=== PATIENT | male | born 1965 | race African-American/Black ===

== ENCOUNTER 2017-04-26 13:54 | Emergency (ER) | payer MEDICARE ==
[~2017-04-26] VITALS: Ht 182.9 cm; Wt 138.3 kg
[~2017-04-26 13:54] MED LIST: CLON0.2T PO; CYCL10TA2 PO; HYDR-971 PO; HYDR12.53 PO; LISI40TA PO; METO25TA2 PO; SIMV20TA3 PO
[2017-04-26] MEDS ORDERED: cloNIDine HCL 0.1 MG TABLET PO ONE (15:45)
--- NOTE | 2017-04-26 15:55 | PHYS DOC ---
Past Medical History Past Medical History: High Cholesterol, Hypertension, Other Additional Past Medical Histor: Gout. Past Surgical History: No Surgical History Additional Information: 1 PPD. Alcohol Use: None Additional Information: "Not no more, since my feet started swelling. Quit weekend before Father's Day. " Drug Use: Marijuana Social History Narrative: Medical Marijuana-last smoked yesterday. Adult General Chief Complaint Chief Complaint: HYPERTENSION HPI HPI Patient is a 52 year old brought to the ED by family members with a complaint of blood pressure elevated. Patient recently had the complaint of tongue swelling and his primary care doctor stopped his losartan. They bring paperwork from that visit. The patient is supposed to be taking metoprolol 100 mg twice a day and was recently started on Lasix 20 mg daily. He states he is taking those as prescribed. At this time, those are the only blood pressure medicines he is on. He is concerned that his blood pressure has been running high. They took it at home with a home cuff multiple times and it is high. Last night because his blood pressure was high, he took another losartan. Evidently he was not counseled to never take that again. When he took it, his tongue did swell up, but is better now. At this time he feels like his head feels heavy or congested but denies headache. Denies chest pain or shortness of air. Review of Systems Review of Systems Constitutional: Denies fever or chills [] HENT: Denies nasal congestion or sore throat [] Respiratory: Denies shortness of breath [] Cardiovascular: Denies chest pain Musculoskeletal: Denies back pain or joint pain [] Neurologic: Denies headache, focal weakness or sensory changes [] Current Medications Current Medications Current Medications Medications (Trade) Dose Ordered Sig/Theodora Start Time Stop Time Status Last Admin Dose Admin Clonidine HCl (Catapres) 0.1 mg 1X ONCE 04/26/17 15:45 04/26/17 15:46 DC 04/26/17 16:14 0.1 MG Allergies Allergies Allergies Coded Allergies Type Severity Reaction Last Updated Verified No Known Drug Allergies 08/02/14 No Physical Exam Physical Exam Constitutional: Well developed, well nourished, no acute distress, non-toxic appearance. Alert, mentating normally. Blood pressure 176/112, heart rate 50 HENT: Normocephalic, atraumatic, bilateral external ears normal, nose normal. [ ] Eyes: conjunctiva normal, no discharge. [] Neck: Normal range of motion, no stridor. [] Cardiovascular:Heart rate regular rhythm, no murmur [] Lungs & Thorax: Bilateral breath sounds clear to auscultation [] Skin: Warm, dry, no erythema, no rash. [] Extremities: No tenderness, no cyanosis, no clubbing, ROM intact, no edema. [] Neurologic: Alert and oriented X 3, normal motor function, normal sensory function, no focal deficits noted. [] Current Patient Data Vital Signs Vital Signs Date Time Temp Pulse Resp B/P (MAP) Pulse Ox O2 Delivery O2 Flow Rate FiO2 04/26/17 16:30 55 16 202/112 (142) 96 Room Air 04/26/17 14:18 98.5 98.5 EKG EKG 12-lead EKG read by me. Sinus rhythm. Heart rate 61. There are no acute ST or T wave changes indicative of ischemia or infarction. No STEMI. 1413 [] Radiology/Procedures Radiology/Procedures [] Course & Med Decision Making Course & Med Decision Making Pertinent Labs and Imaging studies reviewed. (See chart for details) 52-year-old male with hypertension recently had his losartan discontinued because of tongue swelling, presents with elevated blood pressure and nonspecific complaints that are likely not related. The patient and I discussed the options. He is already taking metoprolol 100 twice a day and was recently started on a low dose of furosemide. I don't believe either of those should be increased at this time. We talked about various options. I encouraged him to follow up with his primary care provider for definitive care but tonight we will start him on a low-dose of clonidine to see if that will help his blood pressure while he is waiting for an appointment. [] Dragon Disclaimer Dragon Disclaimer This electronic medical record was generated, in whole or in part, using a voice recognition dictation system. Departure Departure Impression: Primary Impression: Elevated blood pressure reading with diagnosis of hypertension Disposition: 01 HOME, SELF-CARE Condition: STABLE Referrals: UNKNOWN PCP NAME (PCP) Patient Instructions: Hypertension, [id number] Additional Instructions: As we discussed, we will add a blood pressure medicine to the ones that you are already taking. We will add clonidine 0.1 mg twice a day. Today, you had one dose of clonidine in the emergency department. Take your second dose of clonidine at bedtime tonight, and then start taking one every 12 hours. For example, if you go to bed at 10:00 tonight, take your next dose at 10 :00 in the morning tomorrow. Keep your appointment May 07 with your primary care doctor at and let him know what we did with adding clonidine. Drink plenty of fluids, stay well-hydrated. Scripts Clonidine Hcl (CLONIDINE HCL) 0.1 Mg Tablet 0.1 MG PO BID for HYPERTENSION for 30 Days, #60 TAB Prov: ARMANDO LAW MD 04/26/17 ARMANDO LAW MD Apr 26, 2017 15:55
[2017-04-26] MEDS ORDERED: CLON0.1T PO (15:56)
--- NOTE | 2017-04-26 15:58 | EKG ---
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
[2017-04-26 16:30] VITALS: BP 202/112
== END 2017-04-26 16:43 | disposition home or self-care (01) ==
LOC: ER 13:54
DX: I10 Essential (primary) hypertension (principal); E78.00 Pure hypercholesterolemia, unspecified; M10.9 Gout, unspecified; F17.200 Nicotine dependence, unspecified, uncomplicated; F12.10 Cannabis abuse, uncomplicated
CPT/HCPCS: 93005; 99284-25

== ENCOUNTER 2018-02-17 19:05 | Inpatient (IN) | payer MEDICARE ==
[2018-02-17 19:29] LABS: ADD MAN DIFF? NO
[2018-02-17 19:31] LABS: BASO # 0.1 x10^3/uL (0.0-0.2); BASO % 1 % (0-3); EOS # 0.1 x10^3/uL (0.0-0.7); EOS % 2 % (0-3); HEMATOCRIT 43.9 % (39.0-53.0); HEMOGLOBIN 14.9 g/dL (13.0-17.5); LYMPH % 41 % (24-48); MEAN CORPUSCULAR HEMOGLOBIN 30 pg (25-35); MEAN CORPUSCULAR HGB CONC 34 g/dL (31-37); MEAN CORPUSCULAR VOLUME 88 fL (79-100); MONO # 0.7 x10^3/uL (0.0-1.1); MONO % 10 % (0-9); NEUT # 3.4 x10^3uL (1.8-7.7); NEUT % 47 % (31-73); PLATELET COUNT 223 x10^3/uL (140-400); RED BLOOD COUNT 4.97 x10^6/uL (4.30-5.70); RED CELL DISTRIBUTION WIDTH 13.8 % (11.5-14.5); WHITE BLOOD COUNT 7.3 x10^3/uL (4.0-11.0)
[2018-02-17 19:42] LABS: ANION GAP 13 (6-14); BLOOD UREA NITROGEN 21 mg/dL (8-26); BUN/CREATININE RATIO 14 (6-20); CALCIUM 8.4 mg/dL (8.5-10.1); CARBON DIOXIDE 25 mmol/L (21-32); CHLORIDE 104 mmol/L (98-107); CREATININE 1.5 mg/dL (0.7-1.3); GFR 58.8; GLUCOSE 98 mg/dL (70-99); POTASSIUM 3.7 mmol/L (3.5-5.1); SODIUM 142 mmol/L (136-145)
[2018-02-17 19:48] LABS: ALBUMIN 3.8 g/dL (3.4-5.0); ALBUMIN/GLOBULIN RATIO 1.1 (1.0-1.7); ALK PHOS 74 U/L (46-116); ALT (SGPT) 32 U/L (16-63); AST (SGOT) 26 U/L (15-37); TOTAL BILIRUBIN 0.4 mg/dL (0.2-1.0); TOTAL PROTEIN 7.3 g/dL (6.4-8.2)
[2018-02-17 19:49] LABS: TROPONINI < 0.017 ng/mL (0.000-0.055)
[2018-02-17 19:54] LABS: CKMB INDEX 0.5 % (0-4); CKMB MASS 2.3 ng/mL (0.0-3.6); CREATINE KINASE 445 U/L (39-308)
[2018-02-17] MEDS ORDERED: CONTRAST GIVEN. MC (20:00)
[2018-02-17] MEDS: IOHEXOL 300 MG/ML 100ML VIAL. IV (20:05)
[2018-02-17] MEDS: ASPIRIN CHEWABLE 81 MG TABLET. PO (20:12)
[2018-02-17] MEDS ORDERED: ACETAMINOPHEN 325 MG TABLET. PO (21:30)
[2018-02-17] MEDS ORDERED: fentaNYL PF VIAL 100 MCG/2 ML VIAL IV (21:30)
[2018-02-17] MEDS: amLODIPine BESYLATE 10 MG TABLET PO (22:30)
[2018-02-17] MEDS ORDERED: HYDROcodone/APAP 5/325MG 1 TAB TABLET PO (22:30)
[2018-02-17] MEDS ORDERED: LABETALOL 20 MG/4 ML DISP.SYRIN. IVP (22:30)
[2018-02-17] MEDS ORDERED: NITROGLYCERIN SUBLINGUAL 0.4 MG BOTTLE OF 25. SL (22:30)
[2018-02-18] MEDS: ZOLPIDEM 5 MG TABLET. PO (00:32)
[2018-02-18] MEDS: ONDANSETRON PF 4 MG/2 ML VIAL. IV (02:45)
[2018-02-18 03:24] LABS: ADD MAN DIFF? NO
[2018-02-18 03:34] LABS: BASO % 1 % (0-3); EOS # 0.1 x10^3/uL (0.0-0.7); EOS % 2 % (0-3); HEMATOCRIT 42.7 % (39.0-53.0); HEMOGLOBIN 14.5 g/dL (13.0-17.5); LYMPH % 44 % (24-48); MEAN CORPUSCULAR HEMOGLOBIN 30 pg (25-35); MEAN CORPUSCULAR HGB CONC 34 g/dL (31-37); MEAN CORPUSCULAR VOLUME 88 fL (79-100); MONO # 0.5 x10^3/uL (0.0-1.1); MONO % 7 % (0-9); NEUT # 3.2 x10^3uL (1.8-7.7); NEUT % 47 % (31-73); PLATELET COUNT 204 x10^3/uL (140-400); RED BLOOD COUNT 4.84 x10^6/uL (4.30-5.70); RED CELL DISTRIBUTION WIDTH 13.8 % (11.5-14.5); WHITE BLOOD COUNT 6.9 x10^3/uL (4.0-11.0)
[2018-02-18 03:54] LABS: ALBUMIN 3.6 g/dL (3.4-5.0); ALBUMIN/GLOBULIN RATIO 1.2 (1.0-1.7); ALK PHOS 71 U/L (46-116); ALT (SGPT) 31 U/L (16-63); ANION GAP 10 (6-14); AST (SGOT) 27 U/L (15-37); BLOOD UREA NITROGEN 18 mg/dL (8-26); BUN/CREATININE RATIO 13 (6-20); CALCIUM 8.8 mg/dL (8.5-10.1); CARBON DIOXIDE 28 mmol/L (21-32); CHLORIDE 104 mmol/L (98-107); CREATININE 1.4 mg/dL (0.7-1.3); GFR 63.7; GLUCOSE 164 mg/dL (70-99); POTASSIUM 3.5 mmol/L (3.5-5.1); SODIUM 142 mmol/L (136-145); TOTAL BILIRUBIN 0.4 mg/dL (0.2-1.0); TOTAL PROTEIN 6.5 g/dL (6.4-8.2)
[2018-02-18 03:55] LABS: TROPONINI < 0.017 ng/mL (0.000-0.055)
[2018-02-18] MEDS: CETIRIZINE HCL 10 MG TABLET. PO (09:00)
[2018-02-18] MEDS ORDERED: PNEUMOCOCCAL VAX SCREEN BY RX. MC (09:00)
[2018-02-18] MEDS: CARVEDILOL 3.125 MG TABLET. PO (09:01)
[2018-02-18] MEDS: ASPIRIN ENTERIC COATED 325 MG TABLET.DR. PO (09:03)
[2018-02-18] MEDS: FUROSEMIDE 20 MG TABLET PO (09:03)
[2018-02-18] MEDS: LISINOPRIL 20 MG TABLET PO (09:03)
[2018-02-18] MEDS: amLODIPine BESYLATE 10 MG TABLET PO (09:04)
[2018-02-18] MEDS: PNEUMOC CONJ VACC 23-VALENT 0.5 ML VIAL. VAX IM (09:10)
[2018-02-18 09:18] LABS: CHOLESTEROL 165 mg/dL (0-200); HDLC 32 mg/dL (40-60); LDLC 107 mg/dL (0-100); NON-HDL CHOLESTEROL 133 mg/dL (0-129); TRIGLYCERIDES 130 mg/dL (0-150); VLDLC 26 mg/dL (0-40)
[2018-02-18 09:19] LABS: CHOLESTEROL/HDL RATIO 5.2
[2018-02-18] MEDS: PANTOPRAZOLE 40 MG TABLET.DR. PO (09:22)
[2018-02-18] MEDS ORDERED: SIMVASTATIN 20 MG TABLET PO ×2 (21:00)
[2018-02-19] MEDS ORDERED: LORATADINE PO (09:00)
== END 2018-02-18 15:40 | disposition home or self-care (01) | DRG 291 ==
LOC: ER 19:05 → 5 SOUTH 21:16
DX: I13.0 Hypertensive heart and chronic kidney disease with heart failure and stage 1 through stage 4 chronic kidney disease, or unspecified chronic kidney disease (principal); N17.0 Acute kidney failure with tubular necrosis; Z68.41 Body mass index [BMI] 40.0-44.9, adult; E66.01 Morbid (severe) obesity due to excess calories; N18.3 Chronic kidney disease, stage 3 (moderate); K21.9 Gastro-esophageal reflux disease without esophagitis; I50.9 Heart failure, unspecified; R07.89 Other chest pain; I25.119 Atherosclerotic heart disease of native coronary artery with unspecified angina pectoris; I77.810 Thoracic aortic ectasia; E78.00 Pure hypercholesterolemia, unspecified; E78.5 Hyperlipidemia, unspecified; F17.210 Nicotine dependence, cigarettes, uncomplicated; G47.33 Obstructive sleep apnea (adult) (pediatric); F12.90 Cannabis use, unspecified, uncomplicated; M10.9 Gout, unspecified; M19.90 Unspecified osteoarthritis, unspecified site; M54.5 Low back pain; Z82.49 Family history of ischemic heart disease and other diseases of the circulatory system; Z86.73 Personal history of transient ischemic attack (TIA), and cerebral infarction without residual deficits; Z71.6 Tobacco abuse counseling
CPT/HCPCS: 36415; 71045; 71275; 74174; 80053; 80061; 82553; 83735; 84484; 85025; 90732; 93005; 93306; 99285; 99285-25; 99406; J2405; Q9967

== ENCOUNTER 2018-05-21 14:33 | Emergency (ER) | payer MEDICARE ==
[~2018-05-21] VITALS: Ht 182.9 cm; Wt 131.5 kg
[~2018-05-21 14:33] MED LIST changes: +AMLO10TA6 PO; +ASPI325T11 PO; +CARV3.122 PO; +CETI10TA16 PO; +CLON0.1T PO; +FURO20TA3 PO; +LISI-130 PO; +LISI-334 PO; -LISI40TA PO; +LORA10TA68 PO; +NITR0.4T22 SL
[2018-05-21] MEDS ORDERED: IPRATRPIUM/ALBUTEROL 0.5/2.5MG 3 ML NEBU. NEB ONE (15:15)
[2018-05-21] MEDS ORDERED: HYDROcodone/APAP 5/325MG 1 TAB TABLET PO ONE (15:15)
--- NOTE | 2018-05-21 15:22 | EKG ---
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
--- NOTE | 2018-05-21 15:32 | PHYS DOC ---
Past Medical History Past Medical History: CAD, CHF, CVA, High Cholesterol, Hypertension, Other Additional Past Medical Histor: Gout, high cholesterol Past Surgical History: No Surgical History Additional Past Surgical Histo: heart cath, no stent Additional Information: SMOKES 1 CIGARETTE A DAY, PER PT REPORT Alcohol Use: None Drug Use: Marijuana Adult General Chief Complaint Chief Complaint: SHORTNESS OF BREATH HPI HPI Patient is a 53 year old male who presents with cough and respiratory symptoms. The patient does not have a prior history of asthma or emphysema. He presents to the ER today complaining of a persistent cough over the last 7-10 days. He has had some chills but no documented fever. He states that he feels like he needs to cough up some phlegm but he has been unable to expectorate. His symptoms are worse at night. He has developed some left-sided rib cage pain that is worse when he coughs. He denies any chest pain or palpitations or shortness of breath. He also has upper respiratory symptoms including postnasal drip, nasal congestion, and sore throat Review of Systems Review of Systems Constitutional: Denies fever or chills Eyes: Denies change in visual acuity HENT: as documented above Respiratory: Denies cough Cardiovascular: No additional information GI: Denies abdominal pain : Denies dysuria Musculoskeletal: Denies back pain Integument: Denies rash Neurologic: Denies headache All other systems were reviewed and found to be within normal limits, except as documented in this note. Current Medications Current Medications Current Medications Medications (Trade) Dose Ordered Sig/Theodora Start Time Stop Time Status Last Admin Dose Admin Acetaminophen/ Hydrocodone Bitart (Lortab 5/325) 2 tab 1X ONCE 05/21/18 15:15 05/21/18 15:16 DC 05/21/18 15:49 2 TAB Albuterol/ Ipratropium (Duoneb) 3 ml 1X ONCE 05/21/18 15:15 05/21/18 15:16 DC 05/21/18 15:21 3 ML Azithromycin (Zithromax) 500 mg 1X ONCE 05/21/18 16:15 05/21/18 16:16 Prednisone (Prednisone) 50 mg 1X ONCE 05/21/18 16:15 05/21/18 16:16 Allergies Allergies Allergies Coded Allergies Type Severity Reaction Last Updated Verified No Known Drug Allergies 08/02/14 No Physical Exam Physical Exam Constitutional: Well developed, well nourished, no acute distress, non-toxic HENT: Normocephalic, atraumatic, bilateral external ears normal, posterior oral pharynx is clear. Post nasal gtt noted. Some nasal congestion. Eyes: PERRLA, EOMI, conjunctiva normal Neck: Normal range of motion, no tenderness, supple Cardiovascular:Heart rate regular rhythm Lungs & Thorax: Few scattered wheezes heard over the left lung siegel but overall good air movement, no increased work of breathing, no prolonged exp phase Skin: Warm, dry, no erythema, no rash. Back: No tenderness Extremities: No edema Neurologic: Alert and oriented X 3 Psychologic: Affect normal Current Patient Data Vital Signs Vital Signs Date Time Temp Pulse Resp B/P (MAP) Pulse Ox O2 Delivery O2 Flow Rate FiO2 05/21/18 15:49 20 96 Room Air 05/21/18 14:40 98.4 56 153/89 (110) 98.4 EKG EKG [] Radiology/Procedures Radiology/Procedures No acute findings on CXR Course & Med Decision Making Course & Med Decision Making Pertinent Labs and Imaging studies reviewed. (See chart for details) 03:15: Patient is seen and examined. CXR, kenton mast for pain. 16:10: Patient currently feeling improved. His x-ray did not reveal any acute findings. Given his prolonged course of sinus symptoms as well as some positive findings on his physical exam, patient will be treated with azithromycin. He is given the first dose in the ER. He is also placed on a short burst of prednisone. The patient will not be able to afford albuterol inhaler at home so this medication was not prescribed. He is discharged home. Patient is agreeable to plan of care. Dragon Disclaimer Dragon Disclaimer This electronic medical record was generated, in whole or in part, using a voice recognition dictation system. Departure Departure Referrals: UNKNOWN PCP NAME (PCP) Scripts Azithromycin (AZITHROMYCIN TABLET) 250 Mg Tablet 250 MG PO DAILY for ANTI-BIOTIC for 4 Days, #4 TAB 0 Refills Prov: AKUA ZAIDI DO 05/21/18 Prednisone (PREDNISONE) 50 Mg Tablet 1 TAB PO DAILY, #4 TAB Prov: AKUA ZAIDI DO 05/21/18 Hydrocodone/Apap 5-325 (NORCO 5-325 TABLET) 1 Each Tablet 1-2 EACH PO PRN Q6HRS PRN for cough or pain, #15 as needed for pain Prov: AKUA ZAIDI DO 05/21/18 AKUA ZAIDI DO May 21, 2018 15:32
--- NOTE | 2018-05-21 15:55 | RAD ---
CHEST PA LATERAL dated 05/21/2018 3:34 PM. Comparison: 02/17/2018 Clinical Indication: Chest pain. Findings: PA and lateral views were obtained. Heart and mediastinal contours are stable. Lungs are clear without focal consolidation. Vascular interstitium within normal limits. No pleural effusion or pneumothorax. Impression: No acute radiographic abnormality. Electronically signed by: Gary Lebron MD (05/21/2018 3:52 PM) [facility]
[2018-05-21] MEDS ORDERED: HYDR-971 PO (16:09)
[2018-05-21] MEDS ORDERED: AZIT250T6 PO (16:09)
[2018-05-21] MEDS ORDERED: PRED50TA PO (16:09)
[2018-05-21 16:14] VITALS: BP 151/93
[2018-05-21] MEDS ORDERED: predniSONE 20 MG TABLET PO ONE (16:15)
[2018-05-21] MEDS ORDERED: AZITHROMYCIN 250 MG TABLET. PO ONE (16:15)
== END 2018-05-21 16:23 | disposition home or self-care (01) ==
LOC: ER 14:33
DX: R05 Cough (principal); J02.9 Acute pharyngitis, unspecified; R09.81 Nasal congestion; I11.0 Hypertensive heart disease with heart failure; I50.9 Heart failure, unspecified; I25.10 Atherosclerotic heart disease of native coronary artery without angina pectoris; E78.00 Pure hypercholesterolemia, unspecified; F17.210 Nicotine dependence, cigarettes, uncomplicated
CPT/HCPCS: 71046; 93005; 94640; 99284; J7512; J7620; Q0144

== ENCOUNTER 2018-06-29 13:37 | Emergency (ER) | payer MEDICARE ==
[~2018-06-29] VITALS: Ht 182.9 cm; Wt 131.5 kg
[~2018-06-29 13:37] MED LIST changes: +AZIT250T6 PO; +PRED50TA PO
[2018-06-29] MEDS ORDERED: IV NORMAL SALINE 1000ML BAG 1,000 ML IV SCH (14:37)
[2018-06-29] MEDS ORDERED: KETOROLAC 30 MG/ML VIAL. IV ONE (14:45)
[2018-06-29 14:46] LABS: HEMATOCRIT 43.9 % (39.0-53.0); HEMOGLOBIN 15.2 g/dL (13.0-17.5); MEAN CORPUSCULAR HEMOGLOBIN 30 pg (25-35); MEAN CORPUSCULAR HGB CONC 35 g/dL (31-37); MEAN CORPUSCULAR VOLUME 87 fL (79-100); PLATELET COUNT 245 x10^3/uL (140-400); RED BLOOD COUNT 5.02 x10^6/uL (4.30-5.70); RED CELL DISTRIBUTION WIDTH 13.6 % (11.5-14.5); WHITE BLOOD COUNT 6.1 x10^3/uL (4.0-11.0)
[2018-06-29 14:47] LABS: BASO # 0.1 x10^3/uL (0.0-0.2); BASO % 1 % (0-3); EOS # 0.1 x10^3/uL (0.0-0.7); EOS % 1 % (0-3); LYMPH # 2.1 x10^3/uL (1.0-4.8); LYMPH % 34 % (24-48); MONO # 0.6 x10^3/uL (0.0-1.1); MONO % 10 % (0-9); NEUT # 3.3 x10^3uL (1.8-7.7); NEUT % 54 % (31-73)
[2018-06-29 14:48] LABS: BILIRUBIN,URINE NEGATIVE (NEG); CLARITY,URINE CLEAR; COLOR,URINE YELLOW; NITRITE,URINE NEGATIVE (NEG); PROTEIN,URINE NEGATIVE (NEG-TRACE); UROBILINOGEN,URINE 0.2 mg/dL (0.2 mg/dL)
[2018-06-29 14:56] LABS: CALCIUM 9.2 mg/dL (8.5-10.1); CREATININE 1.3 mg/dL (0.7-1.3); GFR 69.3; POTASSIUM 4.2 mmol/L (3.5-5.1)
[2018-06-29 15:02] LABS: ALBUMIN/GLOBULIN RATIO 1.3 (1.0-1.7); TOTAL BILIRUBIN 0.6 mg/dL (0.2-1.0); TOTAL PROTEIN 7.1 g/dL (6.4-8.2)
[2018-06-29 15:04] LABS: BACTERIA,URINE 0 /HPF (0-FEW); HYALINE CASTS, URINE FEW /HPF; RBC,URINE 0 /HPF (0-2); WBC,URINE 0 /HPF (0-4)
[2018-06-29] MEDS ORDERED: IOHEXOL 300 MG/ML 100ML VIAL. IV ONE (15:15)
--- NOTE | 2018-06-29 15:20 | PHYS DOC ---
Past Medical History Past Medical History: CAD, CHF, CVA, High Cholesterol, Hypertension, Other Additional Past Medical Histor: Gout, high cholesterol Past Surgical History: No Surgical History Additional Past Surgical Histo: heart cath, no stent Alcohol Use: None Drug Use: Marijuana Adult General Chief Complaint Chief Complaint: FLANK PAIN HPI HPI Patient is a 53-year-old male who presents to the emergency department for evaluation. He states that he has been having some left-sided abdominal and flank pain today, which began this morning upon awakening, and seemed to radiate towards his lower abdomen, more to the right than the left. He has not had any hematuria or dysuria, nausea, vomiting, or diarrhea. He has not had any fevers or chills. He denies any chest pain shortness of breath. He states he has been dealing with some chronic swelling in his throat, for several months. He states he has seen a doctor for this but has not seen an ENT doctor. He has problems with allergies. He has a chronically drooping right eyelid, which has been present for years, but has not had any new visual symptoms. He denies any headache, new numbness or weakness. There are no alleviating, or exacerbating factors to his symptoms otherwise. Review of Systems Review of Systems Constitutional: Denies fever or chills [] Eyes: Denies change in visual acuity, redness, or eye pain [] HENT: Denies nasal congestion or sore throat, except as noted in the history of present illness. [] Respiratory: Denies cough or shortness of breath [] Cardiovascular: The patient denies any shortness of breath, chest pain, palpitations, or orthopnea [] GI: No additional information not addressed in HPI [] : Denies dysuria or hematuria [] Musculoskeletal: Denies back pain or joint pain [] Integument: Denies rash or skin lesions [] Neurologic: Denies headache, focal weakness or sensory changes [] Endocrine: Denies polyuria or polydipsia [] All other systems were reviewed and found to be within normal limits, except as documented in this note. Current Medications Current Medications Current Medications Medications (Trade) Dose Ordered Sig/Theodora Start Time Stop Time Status Last Admin Dose Admin Iohexol (Omnipaque 300 Mg/ml) 75 ml 1X ONCE 06/29/18 15:15 06/29/18 15:16 DC 06/29/18 15:16 75 ML Ketorolac Tromethamine (Toradol 30mg Vial) 30 mg 1X ONCE 06/29/18 14:45 06/29/18 14:46 DC 06/29/18 15:32 30 MG Sodium Chloride 1,000 ml @ 1,000 mls/hr Q1H 06/29/18 14:37 06/29/18 15:36 DC 06/29/18 15:31 1,000 MLS/HR Allergies Allergies Allergies Coded Allergies Type Severity Reaction Last Updated Verified No Known Drug Allergies 08/02/14 No Physical Exam Physical Exam PHYSICAL EXAM: CONSTITUTIONAL: Well developed, well nourished HEAD: normocephalic, atraumatic EENT: There is very mild right-sided ptosis, most prominent laterally. This appears to be more likely due to local eyelid problem than neurological problem. There is no miosis, PERRL, EOMI. Conjunctivae normal color, there is a small amount of clear conjunctival discharge bilaterally, there is no nasal congestion, sclerae non-icteric; moist mucous membranes. There is mild edema noted to the uvula, without any pharyngeal erythema. Airway is widely patent. There is no peritonsillar edema or uvular shift. NECK: Supple, non-tender; no meningismus. LUNGS: Lungs CTA, breathing even and unlabored. Normal air movement. HEART: Regular rate and rhythm, no murmur CHEST: No deformity; non-tender ABDOMEN: The abdomen is soft, there is mild diffuse tenderness to palpation to the left mid and lower abdomen, without rebound or guarding. The remainder the abdomen is soft and non-tender, no masses or bruits. Normal bowel sounds are present. EXTREM: Normal ROM; no deformity, no calf tenderness. Normal pulses palpable in all extremities. There is no pedal edema. SKIN: No rash; no diaphoresis NEURO: Alert; normal speech and cognition; CN's grossly intact; strength grossly intact without focal deficit. BACK: No CVA TTP. Current Patient Data Vital Signs Vital Signs Date Time Temp Pulse Resp B/P (MAP) Pulse Ox O2 Delivery O2 Flow Rate FiO2 06/29/18 14:25 98.1 52 18 166/97 (120) 97 Room Air 98.1 Lab Values Laboratory Tests Test 06/29/18 14:25 06/29/18 14:36 Urine Collection Type Unknown Urine Color Yellow Urine Clarity Clear Urine pH 5.0 Urine Specific [place] 1.015 Urine Protein Negative mg/dL (NEG-TRACE) Urine Glucose (UA) Negative mg/dL (NEG) Urine Ketones (Stick) Negative mg/dL (NEG) Urine Blood Negative (NEG) Urine Nitrite Negative (NEG) Urine Bilirubin Negative (NEG) Urine Urobilinogen Dipstick 0.2 mg/dL (0.2 mg/dL) Urine Leukocyte Esterase Negative (NEG) Urine RBC 0 /HPF (0-2) Urine WBC 0 /HPF (0-4) Urine Bacteria 0 /HPF (0-FEW) Urine Hyaline Casts Few /HPF Urine Mucus Mod /LPF White Blood Count 6.1 x10^3/uL (4.0-11.0) Red Blood Count 5.02 x10^6/uL (4.30-5.70) Hemoglobin 15.2 g/dL (13.0-17.5) Hematocrit 43.9 % (39.0-53.0) Mean Corpuscular Volume 87 fL (79-100) Mean Corpuscular Hemoglobin 30 pg (25-35) Mean Corpuscular Hemoglobin Concent 35 g/dL (31-37) Red Cell Distribution Width 13.6 % (11.5-14.5) Platelet Count 245 x10^3/uL (140-400) Neutrophils (%) (Auto) 54 % (31-73) Lymphocytes (%) (Auto) 34 % (24-48) Monocytes (%) (Auto) 10 % (0-9) H Eosinophils (%) (Auto) 1 % (0-3) Basophils (%) (Auto) 1 % (0-3) Neutrophils # (Auto) 3.3 x10^3uL (1.8-7.7) Lymphocytes # (Auto) 2.1 x10^3/uL (1.0-4.8) Monocytes # (Auto) 0.6 x10^3/uL (0.0-1.1) Eosinophils # (Auto) 0.1 x10^3/uL (0.0-0.7) Basophils # (Auto) 0.1 x10^3/uL (0.0-0.2) Sodium Level 146 mmol/L (136-145) H Potassium Level 4.2 mmol/L (3.5-5.1) Chloride Level 107 mmol/L (98-107) Carbon Dioxide Level 28 mmol/L (21-32) Anion Gap 11 (6-14) Blood Urea Nitrogen 12 mg/dL (8-26) Creatinine 1.3 mg/dL (0.7-1.3) Estimated GFR (Cockcroft-Gault) 69.3 BUN/Creatinine Ratio 9 (6-20) Glucose Level 92 mg/dL (70-99) Calcium Level 9.2 mg/dL (8.5-10.1) Total Bilirubin 0.6 mg/dL (0.2-1.0) Aspartate Amino Transferase (AST) 20 U/L (15-37) Alanine Aminotransferase (ALT) 27 U/L (16-63) Alkaline Phosphatase 82 U/L (46-116) Troponin I Quantitative < 0.017 ng/mL (0.000-0.055) Total Protein 7.1 g/dL (6.4-8.2) Albumin 4.0 g/dL (3.4-5.0) Albumin/Globulin Ratio 1.3 (1.0-1.7) Lipase 106 U/L (73-393) Laboratory Tests 06/29/18 14:36 Laboratory Tests 06/29/18 14:36 EKG EKG [Normal sinus rhythm a rate of 50 beats for minute, normal axis, normal intervals, nonspecific ST/T changes inferiorly/laterally. EKG is unchanged compared to patient's prior EKG from 02/17/18.] Radiology/Procedures Radiology/Procedures PROCEDURE: CT ABD PELV W/ IV CONTRST ONLY Examination: CT of the abdomen pelvis with IV contrast HISTORY: History of left lower quadrant or left upper quadrant abdominal pain COMPARISON: 02/17/2018 TECHNIQUE: Axial CT images of the abdomen pelvis were performed with IV contrast. Coronal and sagittal reformats are performed Exposure: One or more of the following individualized dose reduction techniques were utilized for this examination: 1. Automated exposure control 2. Adjustment of the mA and/or kV according to patient size 3. Use of iterative reconstruction technique FINDINGS: Mild bibasilar lung atelectasis. No evidence of free air identified in the abdomen. The visualized liver demonstrates mild decreased attenuation probably mild hepatic steatosis. The visualized spleen, adrenals grossly appears unremarkable. The stomach is mildly distended. The visualized pancreas grossly appears unremarkable. The small bowel is nondilated. The appendix is normal. Feces and gas noted in the colon. Urinary bladder is mildly distended. Multiple small cystic structures identified in the bilateral kidneys similar to prior exam probably cyst. No evidence of lytic bony destructive lesion. IMPRESSION: 1. No acute intra-abdominal findings. 2. Bilateral renal cysts. 3. Mild hepatic steatosis.[] Course & Med Decision Making Course & Med Decision Making Pertinent Labs and Imaging studies reviewed. (See chart for details) [4:10 PM: Patient remains stable. I discussed test results, the need for close follow-up, and return precautions.] I discussed the importance of establishing ENT follow- up for the patient's persistent symptoms of soreness in his throat, for 12-24 months, to undergo further evaluation. Dragon Disclaimer Dragon Disclaimer This electronic medical record was generated, in whole or in part, using a voice recognition dictation system. Departure Departure Impression: Primary Impression: Abdominal pain Disposition: HOME, SELF-CARE Condition: STABLE Referrals: SANGEETHA MEDLEY MD Patient Instructions: Abdominal Pain Additional Instructions: Follow-up with your primary care provider for further evaluation in the next 5- 7 days. Please call to schedule appointment. Return to medical care for any new , or worsening symptoms, development of increasing pain, fever, chills, vomiting , chest pain, shortness of breath, or any other new, or concerning symptoms. Scripts Dicyclomine Hcl (DICYCLOMINE HCL) 20 Mg Tablet 1 TAB PO QID, #20 TAB Prov: KATHLEEN MCMAHON MD 06/29/18 KATHLEEN MCMAHON MD Jun 29, 2018 15:20
--- NOTE | 2018-06-29 15:31 | RAD ---
Examination: CT of the abdomen pelvis with IV contrast HISTORY: History of left lower quadrant or left upper quadrant abdominal pain COMPARISON: 02/17/2018 TECHNIQUE: Axial CT images of the abdomen pelvis were performed with IV contrast. Coronal and sagittal reformats are performed Exposure: One or more of the following individualized dose reduction techniques were utilized for this examination: 1. Automated exposure control 2. Adjustment of the mA and/or kV according to patient size 3. Use of iterative reconstruction technique FINDINGS: Mild bibasilar lung atelectasis. No evidence of free air identified in the abdomen. The visualized liver demonstrates mild decreased attenuation probably mild hepatic steatosis. The visualized spleen, adrenals grossly appears unremarkable. The stomach is mildly distended. The visualized pancreas grossly appears unremarkable. The small bowel is nondilated. The appendix is normal. Feces and gas noted in the colon. Urinary bladder is mildly distended. Multiple small cystic structures identified in the bilateral kidneys similar to prior exam probably cyst. No evidence of lytic bony destructive lesion. IMPRESSION: 1. No acute intra-abdominal findings. 2. Bilateral renal cysts. 3. Mild hepatic steatosis. Electronically signed by: Nilay Powers MD (06/29/2018 3:28 PM) [place] [id number]
[2018-06-29 16:00] VITALS: BP 135/76
[2018-06-29] MEDS ORDERED: DICY20TA3 PO (16:13)
--- NOTE | 2018-06-30 10:42 | EKG ---
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
== END 2018-06-29 16:30 | disposition home or self-care (01) ==
LOC: ER 13:37
DX: R10.84 Generalized abdominal pain (principal); R10.30 Lower abdominal pain, unspecified; K76.0 Fatty (change of) liver, not elsewhere classified; N28.1 Cyst of kidney, acquired; E78.00 Pure hypercholesterolemia, unspecified; I11.0 Hypertensive heart disease with heart failure; I50.9 Heart failure, unspecified; I25.10 Atherosclerotic heart disease of native coronary artery without angina pectoris; Z86.73 Personal history of transient ischemic attack (TIA), and cerebral infarction without residual deficits
CPT/HCPCS: 36415; 74177; 80053; 81001; 83690; 84484; 85025; 93005; 96374; 99285; J1885; J7030; Q9967

== ENCOUNTER 2018-07-18 17:43 | Emergency (ER) | payer MEDICARE ==
[~2018-07-18] VITALS: Ht 182.9 cm; Wt 131.5 kg
[~2018-07-18 17:43] MED LIST changes: +DICY20TA3 PO
[2018-07-18] MEDS ORDERED: IV NORMAL SALINE 1000ML BAG 1,000 ML IV ONE (18:15)
[2018-07-18] MEDS ORDERED: FAMOTIDINE 20 MG/2 ML VIAL IVP ONE (18:45)
--- NOTE | 2018-07-18 18:46 | PHYS DOC ---
Past Medical History Past Medical History: CAD, CHF, CVA, High Cholesterol, Hypertension, Other Additional Past Medical Histor: Gout, high cholesterol Past Surgical History: No Surgical History Additional Past Surgical Histo: heart cath, no stent Alcohol Use: Occasionally Drug Use: Marijuana Adult General Chief Complaint Chief Complaint: ABDOMINAL PAIN HPI HPI Patient is a 53 year old male presenting to the ED with abdominal pain. Pt states that the pain is located in the RUQ and wraps around to the back. States that the pain has been ongoing for the past 5 months. Severity 8/10. Quality is crampy. Pain alleviated with milk, apparently. Pain is worse with fatty foods. Reportedly seen in the ED here a month ago for LLQ pain but states that this resolved with a prescription of dicyclomine. Pt reports that a CT was done at that time which did not show gallstones. Last BM yesterday. Also complains of throat hurting. Patient admits to having fever, upper back pain, chills, and sweating. Patient denies current chest pain, and shortness of breath. Review of Systems Review of Systems Constitutional: Reports subjective fever and chills Eyes: Denies change in visual acuity, redness, or eye pain [] HENT: Denies nasal congestion or sore throat [] Respiratory: Denies cough or shortness of breath [] Cardiovascular: Denies chest pain or palpitations GI: Admits to right upper quadrant pain, denies nausea vomiting. : Denies dysuria or hematuria [] Musculoskeletal: Admits to upper back pain. Denies joint pain. Integument: Denies rash or skin lesions [] Neurologic: Denies headache, focal weakness or sensory changes [] Complete systems were reviewed and found to be within normal limits, except as documented in this note. Current Medications Current Medications Current Medications Medications (Trade) Dose Ordered Sig/Theodora Start Time Stop Time Status Last Admin Dose Admin Dicyclomine HCl (Bentyl) 10 mg 1X ONCE 07/18/18 20:15 07/18/18 20:16 DC 07/18/18 20:16 10 MG Famotidine (Pepcid Vial) 20 mg 1X ONCE 07/18/18 18:45 07/18/18 18:46 DC 07/18/18 19:01 20 MG Ketorolac Tromethamine (Toradol 15mg Vial) 15 mg 1X ONCE 07/18/18 20:15 07/18/18 20:16 DC 07/18/18 20:10 15 MG Sodium Chloride 1,000 ml @ 1,000 mls/hr 1X ONCE 07/18/18 18:15 07/18/18 19:14 DC 07/18/18 19:01 1,000 MLS/HR Allergies Allergies Allergies Coded Allergies Type Severity Reaction Last Updated Verified No Known Drug Allergies 08/02/14 No Physical Exam Physical Exam Constitutional: Well developed, overweight, no acute distress, non-toxic appearance. [] HENT: Normocephalic, atraumatic, oropharynx moist, nose normal. [] Eyes: PERRL, EOMI, conjunctiva normal, no discharge. [] Neck: Normal range of motion, no tenderness, supple, no meningeal signs Cardiovascular:Heart rate regular rhythm, no murmur [] Lungs & Thorax: Bilateral breath sounds clear to auscultation [] Abdomen: Soft, right upper quadrant mildly tender to palpation Skin: Warm, dry, no erythema, no rash. [] Back: No tenderness, no CVA tenderness. [] Extremities: No tenderness, ROM intact, no edema. [] Neurologic: Alert and oriented X 3, normal motor function, normal sensory function, no focal deficits noted. [] Psychologic: Affect normal, judgement normal, mood normal. [] Current Patient Data Vital Signs Vital Signs Date Time Temp Pulse Resp B/P (MAP) Pulse Ox O2 Delivery O2 Flow Rate FiO2 07/18/18 21:42 76 18 136/84 (101) 96 07/18/18 20:05 96.0 07/18/18 18:01 97.1 Room Air 97.1 Lab Values Laboratory Tests Test 07/18/18 17:55 07/18/18 18:50 Urine Collection Type Clean catch Urine Color Yellow Urine Clarity Clear Urine pH 6.5 Urine Specific [place] <=1.005 Urine Protein Negative mg/dL (NEG-TRACE) Urine Glucose (UA) Negative mg/dL (NEG) Urine Ketones (Stick) Negative mg/dL (NEG) Urine Blood Negative (NEG) Urine Nitrite Negative (NEG) Urine Bilirubin Negative (NEG) Urine Urobilinogen Dipstick 0.2 mg/dL (0.2 mg/dL) Urine Leukocyte Esterase Negative (NEG) Urine RBC 0 /HPF (0-2) Urine WBC Occ /HPF (0-4) Urine Squamous Epithelial Cells Occ /LPF Urine Bacteria Few /HPF (0-FEW) White Blood Count 8.0 x10^3/uL (4.0-11.0) Red Blood Count 4.93 x10^6/uL (4.30-5.70) Hemoglobin 14.7 g/dL (13.0-17.5) Hematocrit 43.3 % (39.0-53.0) Mean Corpuscular Volume 88 fL (79-100) Mean Corpuscular Hemoglobin 30 pg (25-35) Mean Corpuscular Hemoglobin Concent 34 g/dL (31-37) Red Cell Distribution Width 13.6 % (11.5-14.5) Platelet Count 213 x10^3/uL (140-400) Neutrophils (%) (Auto) 59 % (31-73) Lymphocytes (%) (Auto) 31 % (24-48) Monocytes (%) (Auto) 9 % (0-9) Eosinophils (%) (Auto) 1 % (0-3) Basophils (%) (Auto) 1 % (0-3) Neutrophils # (Auto) 4.8 x10^3uL (1.8-7.7) Lymphocytes # (Auto) 2.5 x10^3/uL (1.0-4.8) Monocytes # (Auto) 0.7 x10^3/uL (0.0-1.1) Eosinophils # (Auto) 0.0 x10^3/uL (0.0-0.7) Basophils # (Auto) 0.1 x10^3/uL (0.0-0.2) Sodium Level 139 mmol/L (136-145) Potassium Level 4.2 mmol/L (3.5-5.1) Chloride Level 105 mmol/L (98-107) Carbon Dioxide Level 26 mmol/L (21-32) Anion Gap 8 (6-14) Blood Urea Nitrogen 16 mg/dL (8-26) Creatinine 1.5 mg/dL (0.7-1.3) H Estimated GFR (Cockcroft-Gault) 58.8 BUN/Creatinine Ratio 11 (6-20) Glucose Level 91 mg/dL (70-99) Calcium Level 9.3 mg/dL (8.5-10.1) Magnesium Level 2.1 mg/dL (1.8-2.4) Total Bilirubin 0.5 mg/dL (0.2-1.0) Aspartate Amino Transferase (AST) 26 U/L (15-37) Alanine Aminotransferase (ALT) 31 U/L (16-63) Alkaline Phosphatase 85 U/L (46-116) Creatine Kinase 336 U/L (39-308) H Creatine Kinase MB (Mass) 1.8 ng/mL (0.0-3.6) Creatine Kinase MB Relative Index 0.5 % (0-4) Troponin I Quantitative < 0.017 ng/mL (0.000-0.055) Total Protein 7.5 g/dL (6.4-8.2) Albumin 4.0 g/dL (3.4-5.0) Albumin/Globulin Ratio 1.1 (1.0-1.7) Lipase 107 U/L (73-393) Laboratory Tests 07/18/18 18:50 Laboratory Tests 07/18/18 18:50 EKG EKG 1849: Abundant artifacts noted. sinus bradycardia at 58bpm. No ST elevation. Radiology/Procedures Radiology/Procedures PROCEDURE: ABDOMEN LTD Examination: ABDOMEN LTD History: RUQ PAIN Comparison/Correlation: None Findings: Right upper quadrant ultrasound exam was performed. Gallbladder is normal. Portal venous flow is normal. No cholelithiasis. Normal gallbladder wall thickness. Mild fatty infiltration liver is present. Right kidney measures 10.7 cm x 5 cm x 4.7 cm. Right renal superior pole cyst measuring 1.3 cm diameter is present. Additional smaller right renal cysts suggested. No right hydronephrosis. Pancreas is obscured by bowel gas. Impression: No cholelithiasis. No right hydronephrosis. Fatty infiltration liver. Electronically signed by: Leobardo Garza MD (07/18/2018 8:33 PM) [facility] CXR 2 view (preliminary interpretation by ED physician): NO acute process Course & Med Decision Making Course & Med Decision Making 53 yo male complaining of RUQ pain. Symptomatic treatment provided. Labs obtained and posted to chart. LFT/lipase within normal limits. Troponin also within normal limits. EKG stable. Ultrasound without signs of acute cholecystitis. Patient stable for discharge with outpatient follow-up with PCP. Discussed findings and plan with patient, who acknowledges understanding and agreement. Dragon Disclaimer Dragon Disclaimer This electronic medical record was generated, in whole or in part, using a voice recognition dictation system. Departure Departure Impression: Primary Impression: Abdominal pain Disposition: 01 HOME, SELF-CARE Condition: STABLE Referrals: UNKNOWN PCP NAME (PCP) KEMI ROJAS MD Patient Instructions: Abdominal Pain (Nonspecific) Scripts Ondansetron (ZOFRAN ODT) 4 Mg Tab.rapdis 4 MG PO BID PRN for NAUSEA/VOMITING, #14 TAB Prov: HERACLIO LOZA DO 07/18/18 Hyoscyamine Sulfate (LEVSIN-SL) 0.125 Mg Tab.subl 1-2 TAB SL PRN Q4HRS, #20 TAB 0 Refills Prov: HERACLIO LOZA DO 07/18/18 Problem Qualifiers Primary Impression: Abdominal pain Abdominal location: unspecified location Qualified Codes: R10.9 - Unspecified abdominal pain HERACLIO LOZA DO Jul 18, 2018 18:46
[2018-07-18 19:09] LABS: BASO # 0.1 x10^3/uL (0.0-0.2); BASO % 1 % (0-3); EOS % 1 % (0-3); HEMATOCRIT 43.3 % (39.0-53.0); HEMOGLOBIN 14.7 g/dL (13.0-17.5); LYMPH # 2.5 x10^3/uL (1.0-4.8); LYMPH % 31 % (24-48); MEAN CORPUSCULAR HEMOGLOBIN 30 pg (25-35); MEAN CORPUSCULAR HGB CONC 34 g/dL (31-37); MEAN CORPUSCULAR VOLUME 88 fL (79-100); MONO # 0.7 x10^3/uL (0.0-1.1); MONO % 9 % (0-9); NEUT # 4.8 x10^3uL (1.8-7.7); NEUT % 59 % (31-73); PLATELET COUNT 213 x10^3/uL (140-400); RED BLOOD COUNT 4.93 x10^6/uL (4.30-5.70); RED CELL DISTRIBUTION WIDTH 13.6 % (11.5-14.5)
[2018-07-18 19:24] LABS: CALCIUM 9.3 mg/dL (8.5-10.1); CREATININE 1.5 mg/dL (0.7-1.3); GFR 58.8; POTASSIUM 4.2 mmol/L (3.5-5.1)
[2018-07-18 19:30] LABS: ALBUMIN/GLOBULIN RATIO 1.1 (1.0-1.7); MAGNESIUM 2.1 mg/dL (1.8-2.4); TOTAL BILIRUBIN 0.5 mg/dL (0.2-1.0); TOTAL PROTEIN 7.5 g/dL (6.4-8.2)
[2018-07-18 19:58] LABS: BILIRUBIN,URINE NEGATIVE (NEG); CLARITY,URINE CLEAR; COLOR,URINE YELLOW; NITRITE,URINE NEGATIVE (NEG); PH,URINE 6.5; PROTEIN,URINE NEGATIVE (NEG-TRACE); UROBILINOGEN,URINE 0.2 mg/dL (0.2 mg/dL)
[2018-07-18 20:10] LABS: BACTERIA,URINE FEW /HPF (0-FEW); RBC,URINE 0 /HPF (0-2); SQUAMOUS EPITHELIAL CELL,UR OCC /LPF; WBC,URINE OCC /HPF (0-4)
[2018-07-18] MEDS ORDERED: KETOROLAC 15 MG/ML VIAL. IV ONE (20:15)
[2018-07-18] MEDS ORDERED: DICYCLOMINE 20 MG/2 ML AMPUL. IM ONE (20:15)
--- NOTE | 2018-07-18 20:36 | RAD ---
Examination: ABDOMEN LTD History: RUQ PAIN Comparison/Correlation: None Findings: Right upper quadrant ultrasound exam was performed. Gallbladder is normal. Portal venous flow is normal. No cholelithiasis. Normal gallbladder wall thickness. Mild fatty infiltration liver is present. Right kidney measures 10.7 cm x 5 cm x 4.7 cm. Right renal superior pole cyst measuring 1.3 cm diameter is present. Additional smaller right renal cysts suggested. No right hydronephrosis. Pancreas is obscured by bowel gas. Impression: No cholelithiasis. No right hydronephrosis. Fatty infiltration liver. Electronically signed by: Leobardo Garza MD (07/18/2018 8:33 PM) [facility]
[2018-07-18] MEDS ORDERED: ONDA4TAB10 PO (21:27)
[2018-07-18] MEDS ORDERED: HYOS0.1265 SL (21:27)
[2018-07-18 21:42] VITALS: BP 136/84
--- NOTE | 2018-07-18 23:26 | RAD ---
Examination: CHEST PA LATERAL History: ER PATIENT. LOWER RIB MARGIN/UPPER ABDOMEN PAIN. Hx CAD, CHF, HTN. PRIOR XRAY Comparison/Correlation: None Findings: PA and lateral views of the chest were obtained. Heart size and pulmonary vasculature are normal. No infiltrate or pleural effusion. Calcified granulomas are present. No pneumothorax. Impression: No active disease. Electronically signed by: Leobardo Garza MD (07/18/2018 11:23 PM) [facility]
--- NOTE | 2018-07-19 07:32 | EKG ---
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
== END 2018-07-18 21:43 | disposition home or self-care (01) ==
LOC: ER 17:43
DX: R10.11 Right upper quadrant pain (principal); R07.0 Pain in throat; R50.9 Fever, unspecified; M54.6 Pain in thoracic spine; R61 Generalized hyperhidrosis; E78.00 Pure hypercholesterolemia, unspecified; I11.0 Hypertensive heart disease with heart failure; I50.9 Heart failure, unspecified; I25.10 Atherosclerotic heart disease of native coronary artery without angina pectoris; Z86.73 Personal history of transient ischemic attack (TIA), and cerebral infarction without residual deficits; M10.9 Gout, unspecified
CPT/HCPCS: 36415; 71046; 76705; 80053; 81001; 82553; 83690; 83735; 84484; 85025; 93005; 96372; 96374; 96375; 99285; J0500; J1885; J3490; J7030

== ENCOUNTER 2019-01-22 14:46 | Inpatient (IN) | payer MEDICARE, OTHER ==
[~2019-01-22] VITALS: Ht 182.9 cm; Wt 133.4 kg
[~2019-01-22 14:46] MED LIST changes: -AMLO10TA6 PO; +AMLO10TA8 PO; +CARV3.1210 PO; -CARV3.122 PO; +HYDR-3164 PO; -HYDR-971 PO; -HYDR12.53 PO; +HYDR12.575 PO; +HYOS0.1265 SL; +ONDA4TAB10 PO
--- NOTE | 2019-01-22 15:20 | PHYS DOC ---
Past Medical History Past Medical History: CAD, CHF, CVA, High Cholesterol, Hypertension, Other Additional Past Medical Histor: Gout, high cholesterol Past Surgical History: No Surgical History Additional Past Surgical Histo: heart cath, no stent Alcohol Use: Occasionally Drug Use: Marijuana Adult General Chief Complaint Chief Complaint: CHEST PAIN HPI HPI 53-year-old male presents to ER via EMS from rehabilitation facility for complaints of mid chest pain which started during physical therapy. Pt reports chest pain is in middle of chest without radiation into neck/extremities/back. Pt was given Aspirin 324mg DROP FORGE HAND. Pt reports pain has eased some. Pt is denying SOA, nausea, or abd pain. Pt has hx of CVAs with rt side hemiparesis. Pt reports he has rt foot drop and is in rt lower leg/foot brace. He reports he has been having bilat. upper thigh pain for several days. Denies falls/injury. During initial exam pt mentions he has been having blurred vision since last night- had not mentioned to staff prior to this provider's exam. Pt reports sxs started late evening yest. He denies [place], dizziness, tinnitus, N/V, or loss of vision. Review of Systems Review of Systems Constitutional: Denies fever or chills [] Eyes: Denies eye pain/photosensitivity/loss of vision. Reports blurred vision since last night HENT: Denies nasal congestion or sore throat [] Respiratory: Denies cough or shortness of breath [] Cardiovascular: Reports mid chest pain- improved since onset GI: Denies abdominal pain, nausea, vomiting, bloody stools or diarrhea [] : Denies urinary sxs Musculoskeletal: Denies back pain. Reports upper thigh pain Integument: Denies rash or skin lesions [] Neurologic: Denies headache/dizziness. Reports rt side deficits from previous CVA with less sensation on rt side extremities- rt side hemiparesis All other systems were reviewed and found to be within normal limits, except as documented in this note. Current Medications Current Medications Current Medications Medications (Trade) Dose Ordered Sig/Theodora Start Time Stop Time Status Last Admin Dose Admin Fentanyl Citrate (Fentanyl 2ml Vial) 50 mcg 1X ONCE 01/22/19 16:30 01/22/19 16:31 DC 01/22/19 16:37 50 MCG Allergies Allergies Physical Exam Physical Exam Constitutional: Well developed, well nourished, no acute distress, non-toxic appearance. Clear speech no facial droop HENT: Normocephalic, atraumatic, bilateral ears normal, oropharynx moist- no pharyngeal swelling/erythema, no oral exudates, nose normal. [] Eyes: 3mm PERRLA, EOMI- no pain with eye movements, no nystagmus, conjunctiva normal, no discharge/tearing Neck: Normal range of motion, no tenderness, supple, no stridor. [] Cardiovascular: Heart rate regular rhythm, no murmur [] Lungs & Thorax: Bilateral breath sounds clear to auscultation. Resp. equal/nonlabored. On palp. mid sternal chest pt reports pain is reproducible on palp. No swelling/crepitus Abdomen: Bowel sounds normal, soft/obese, no tenderness, no masses, no pulsatile masses. [] Skin: Warm, dry, no erythema, no rash. [] Back: No tenderness, no CVA tenderness. [] Extremities: Tender on palp. upper anterior thighs- pain is diffuse. No swelling and extremity size symmetric, no cyanosis, no clubbing, ROM intact lt /upper and LE- hx of rt side hemiparesis, no edema. 2+ radial bilat. 2+ posterior tibial bilat. Pt has rt lower leg/foot brace for drop foot. Pt reports chronic decreased sensation rt side extremities d/t prev. CVA- he does report he can feel pin prick in all extremities with no acute change in sensation Neurologic: Alert and oriented X 3, normal motor function, normal sensory function, no focal deficits noted. [] Psychologic: Affect normal, judgement normal, mood normal. [] Current Patient Data Vital Signs Vital Signs Date Time Temp Pulse Resp B/P (MAP) Pulse Ox O2 Delivery O2 Flow Rate FiO2 01/22/19 16:37 14 01/22/19 16:30 52 122/72 (89) 01/22/19 15:18 98.4 96 98.4 Lab Values Laboratory Tests Test 01/22/19 15:15 White Blood Count 5.3 x10^3/uL (4.0-11.0) Red Blood Count 5.00 x10^6/uL (4.30-5.70) Hemoglobin 14.2 g/dL (13.0-17.5) Hematocrit 43.3 % (39.0-53.0) Mean Corpuscular Volume 87 fL (79-100) Mean Corpuscular Hemoglobin 28 pg (25-35) Mean Corpuscular Hemoglobin Concent 33 g/dL (31-37) Red Cell Distribution Width 15.2 % (11.5-14.5) H Platelet Count 227 x10^3/uL (140-400) Neutrophils (%) (Auto) 45 % (31-73) Lymphocytes (%) (Auto) 41 % (24-48) Monocytes (%) (Auto) 11 % (0-9) H Eosinophils (%) (Auto) 3 % (0-3) Basophils (%) (Auto) 1 % (0-3) Neutrophils # (Auto) 2.4 x10^3uL (1.8-7.7) Lymphocytes # (Auto) 2.2 x10^3/uL (1.0-4.8) Monocytes # (Auto) 0.6 x10^3/uL (0.0-1.1) Eosinophils # (Auto) 0.1 x10^3/uL (0.0-0.7) Basophils # (Auto) 0.0 x10^3/uL (0.0-0.2) Prothrombin Time 13.9 SEC (11.7-14.0) Prothrombin Time INR 1.1 (0.8-1.1) PTT 32 SEC (24-38) Sodium Level 143 mmol/L (136-145) Potassium Level 3.9 mmol/L (3.5-5.1) Chloride Level 106 mmol/L (98-107) Carbon Dioxide Level 29 mmol/L (21-32) Anion Gap 8 (6-14) Blood Urea Nitrogen 16 mg/dL (8-26) Creatinine 1.1 mg/dL (0.7-1.3) Estimated GFR (Cockcroft-Gault) 84.1 BUN/Creatinine Ratio 15 (6-20) Glucose Level 110 mg/dL (70-99) H Hemoglobin A1c 5.9 % (4.8-5.6) H Calcium Level 9.2 mg/dL (8.5-10.1) Magnesium Level 1.9 mg/dL (1.8-2.4) Total Bilirubin 0.3 mg/dL (0.2-1.0) Aspartate Amino Transferase (AST) 20 U/L (15-37) Alanine Aminotransferase (ALT) 30 U/L (16-63) Alkaline Phosphatase 74 U/L (46-116) Troponin I Quantitative < 0.017 ng/mL (0.000-0.055) Total Protein 6.9 g/dL (6.4-8.2) Albumin 3.7 g/dL (3.4-5.0) Albumin/Globulin Ratio 1.2 (1.0-1.7) 25-Hydroxy Vitamin D Total 13.6 ng/mL (30-100) L Thyroid Stimulating Hormone (TSH) 0.249 uIU/mL (0.358-3.74) L Laboratory Tests 01/22/19 15:15 Laboratory Tests 01/22/19 15:15 EKG EKG [] Radiology/Procedures Radiology/Procedures PROCEDURE: CHEST AP ONLY EXAM: Chest, single view. HISTORY: Chest pain. COMPARISON: 07/18/2018 FINDINGS: A frontal view of the chest is obtained. There is left retrograde opacity which may be due to slight oblique positioning and asymmetric overlying soft tissue. The possibility of left lower lobe infiltrate is not excluded. The heart is normal in size. IMPRESSION: Left lower lobe opacity possibly due to asymmetric overlying soft tissue artifact or infiltrate. Electronically signed by: Raquel Davis MD (01/22/2019 3:42 PM) [facility] DICTATED and SIGNED BY: RAQUEL DAVIS MD DATE: 01/22/19 1542 PROCEDURE: CT HEAD WO CONTRAST EXAM: Head CT without contrast. HISTORY: Blurred vision. Stroke. TECHNIQUE: Computed tomographic images of the head were obtained without contrast. *One or more of the following individualized dose reduction techniques were utilized for this examination: 1. Automated exposure control. 2. Adjustment of the mA and/or kV according to patient size. 3. Use of iterative reconstruction technique. COMPARISON: 08/28/2012. FINDINGS: There is no acute or subacute extra-axial or intraparenchymal hemorrhage. There is no mass effect or midline shift. There is no hydrocephalus. There is subtle areas of hypodensity within the cerebral white, likely due to chronic small vessel disease. There is a large within the medial left frontal lobe with involvement of the left aspect of the genu of the corpus callosum. There is a chronic infarct within the left putamen and adjacent frontal white matter. There is associated ex vacuo dilatation of the frontal horn of the left lateral ventricle. There is new hypodensity within the posterior lateral left frontal lobe cortex and subcortical white matter. There is no midline shift. There is no hydrocephalus. There is a left lamina appreciable fracture. The orbits and mastoid air cells are otherwise unremarkable. No calvarial lesion is seen. IMPRESSION: 1. New region of hypodensity within the posterior lateral left frontal lobe cortex and subcortical white matter. This is likely an infarct of uncertain chronicity. MRI may be useful to assess chronicity. 2. Chronic infarcts within the anterior medial left frontal lobe with involvement of the corpus callosum and the left basal ganglia with involvement of the adjacent left frontal white matter. 3. Subtle areas of hypodensity within the cerebral white matter, likely due to chronic small vessel disease. Findings were discussed with referring doctor in the ED at 1600 hours on 01/22/2019. Electronically signed by: Raquel Davis MD (01/22/2019 4:05 PM) [facility] DICTATED and SIGNED BY: RAQUEL DAVIS MD DATE: 01/22/19 1794 Course & Med Decision Making Course & Med Decision Making Pertinent Labs and Imaging studies reviewed. (See chart for details) Pt was evaluated in the ER for c/o sudden onset of CP while at PT which started just DROP FORGE HAND to ER. Pt had labs/chest xray and EKG obtained. Troponin was <0.017; EKG with acute ST elevation/STEMI. Pt had been given aspirin and Nitro SL DROP FORGE HAND with improvement in CP. He was provided with dose of Fentanyl while in the ER for his c/o upper leg pain. Pt during initial exam reported having some blurred vision since last night- head CT was obtained. Pt has hx of rt side hemiparesis from prev. CVA. CT head report showing an infarct posterior lateral lt frontal lobe cortex and subcortical white matter. Recommended MRI to further evaluate. Pt is outside TPA window as his sxs had started last night. These findings were discussed with Dr. Clifton. Test results were discussed with pt- he reports some improvement in pain with dose of Fentanyl. He remains A&Ox3. Discussed with sudden onset of CP DROP FORGE HAND would admit him for serial cardiac enzymes. Pt agreeable with admit plan. Will admit to hospitalist services and consult cardiology and neurology with admit orders. 1700: Spoke with Dr. Riffel, hospitalist and discussed pt's case/test results. Discussed previous medical hx and he reported pt had cardiac cath in 10/07 with no stents or tx required. Discussed pt's c/o vision changes which started last night and CT findings with plans to consult neurology with admit orders. During this discussion it was noticed that on CT report at bottom was reported that ER doctor was notified of CT findings. No call had been received by this provider or Dr. Clifton. 1709: Spoke with radiologist Dr. Davis for CT clarification as report mentions she had spoke to ER doctor regarding CT as neither myself or Dr. Clifton had received a call. Per radiologist she had spoke to male staff member- possibly that was RN as no male doctor/mid level in ER currently. No report of that call was relayed to this provider or Dr. Clifton. Dr. Davis reports pt's CT was compared to CT head from 2012 as there are no new images in pt's records. Pt's CT has new findings "no acute or subacute extra-axial or intraparenchymal hemorrhage. There is no mass effect or midline shift. There is no hydrocephalus". Also reported was "New region of hypodensity within the pos terior lateral left frontal lobe cortex and subcortical white matter. This is likely an infarct of uncertain chronicity". She recommends f/u MRI for further eval. to determine age of findings on today's CT. Dragon Disclaimer Dragon Disclaimer This electronic medical record was generated, in whole or in part, using a voice recognition dictation system. Departure Departure Impression: Primary Impression: Chest pain Additional Impression: Vision changes Disposition: ADMITTED INPATIENT Admitting Physician: Other (Dr. Ojeda) Condition: STABLE Referrals: UNKNOWN PCP NAME (PCP) Problem Qualifiers PRICILA CANDELARIO CASHIER MANAGER January 22, 2019 15:20
[2019-01-22 15:23] LABS: BASO % 1 % (0-3); EOS # 0.1 x10^3/uL (0.0-0.7); EOS % 3 % (0-3); HEMATOCRIT 43.3 % (39.0-53.0); HEMOGLOBIN 14.2 g/dL (13.0-17.5); LYMPH # 2.2 x10^3/uL (1.0-4.8); LYMPH % 41 % (24-48); MEAN CORPUSCULAR HEMOGLOBIN 28 pg (25-35); MEAN CORPUSCULAR HGB CONC 33 g/dL (31-37); MEAN CORPUSCULAR VOLUME 87 fL (79-100); MONO # 0.6 x10^3/uL (0.0-1.1); MONO % 11 % (0-9); NEUT # 2.4 x10^3uL (1.8-7.7); NEUT % 45 % (31-73); PLATELET COUNT 227 x10^3/uL (140-400); RED CELL DISTRIBUTION WIDTH 15.2 % (11.5-14.5); WHITE BLOOD COUNT 5.3 x10^3/uL (4.0-11.0)
[2019-01-22 15:32] LABS: CALCIUM 9.2 mg/dL (8.5-10.1); CREATININE 1.1 mg/dL (0.7-1.3); GFR 84.1; POTASSIUM 3.9 mmol/L (3.5-5.1); PROTHROMBIN TIME PATIENT 13.9 SEC (11.7-14.0)
[2019-01-22 15:38] LABS: ALBUMIN 3.7 g/dL (3.4-5.0); ALBUMIN/GLOBULIN RATIO 1.2 (1.0-1.7); MAGNESIUM 1.9 mg/dL (1.8-2.4); TOTAL BILIRUBIN 0.3 mg/dL (0.2-1.0); TOTAL PROTEIN 6.9 g/dL (6.4-8.2)
--- NOTE | 2019-01-22 15:45 | RAD ---
EXAM: Chest, single view. HISTORY: Chest pain. COMPARISON: 07/18/2018 FINDINGS: A frontal view of the chest is obtained. There is left retrograde opacity which may be due to slight oblique positioning and asymmetric overlying soft tissue. The possibility of left lower lobe infiltrate is not excluded. The heart is normal in size. IMPRESSION: Left lower lobe opacity possibly due to asymmetric overlying soft tissue artifact or infiltrate. Electronically signed by: Raquel Wagoner MD (01/22/2019 3:42 PM) [facility]
--- NOTE | 2019-01-22 16:08 | RAD ---
EXAM: Head CT without contrast. HISTORY: Blurred vision. Stroke. TECHNIQUE: Computed tomographic images of the head were obtained without contrast. *One or more of the following individualized dose reduction techniques were utilized for this examination: 1. Automated exposure control. 2. Adjustment of the mA and/or kV according to patient size. 3. Use of iterative reconstruction technique. COMPARISON: 08/28/2012. FINDINGS: There is no acute or subacute extra-axial or intraparenchymal hemorrhage. There is no mass effect or midline shift. There is no hydrocephalus. There is subtle areas of hypodensity within the cerebral white, likely due to chronic small vessel disease. There is a large within the medial left frontal lobe with involvement of the left aspect of the genu of the corpus callosum. There is a chronic infarct within the left putamen and adjacent frontal white matter. There is associated ex vacuo dilatation of the frontal horn of the left lateral ventricle. There is new hypodensity within the posterior lateral left frontal lobe cortex and subcortical white matter. There is no midline shift. There is no hydrocephalus. There is a left lamina appreciable fracture. The orbits and mastoid air cells are otherwise unremarkable. No calvarial lesion is seen. IMPRESSION: 1. New region of hypodensity within the posterior lateral left frontal lobe cortex and subcortical white matter. This is likely an infarct of uncertain chronicity. MRI may be useful to assess chronicity. 2. Chronic infarcts within the anterior medial left frontal lobe with involvement of the corpus callosum and the left basal ganglia with involvement of the adjacent left frontal white matter. 3. Subtle areas of hypodensity within the cerebral white matter, likely due to chronic small vessel disease. Findings were discussed with referring doctor in the ED at 1600 hours on 01/22/2019. Electronically signed by: Raquel Wagoner MD (01/22/2019 4:05 PM) [facility]
[2019-01-22] MEDS ORDERED: fentaNYL PF VIAL 100 MCG/2 ML VIAL IV ONE (16:30)
--- NOTE | 2019-01-22 17:04 | PDOC1 ---
History and Physical Date of Admission Date of Admission DATE: 01/22/19 TIME: 17:04 Identification/Chief Complaint Chief Complaint Chest pain Source Source: Caregiver, Chart review, Patient History of Present Illness History of Present Illness Mr Pitts is a 53-year-old male w/ PMHx CAD, CHF, CVA (2004 and 2017), High Cholesterol, Hypertension who presents to ER via EMS from rehabilitation facility for complaints of mid chest pain which started during physical therapy. On further ROS he notes that he has had right visual field disturbances and blurry vision that began yesterday. He also notes a sensation of swelling of his right shoulder and neck as well as bilateral thigh pain which has been bothering him for a few months. In ED he underwent initial troponin which was negative and EKG showing slight inferior TWI. Had cardiac cath September 2017 without intervention for similar pain (Moderate two vessel disease in small caliber vessels - OM1 and RPDA&RPL) and echo in February 2018 that was essentially normal. He also underwent CT head in ED showing a new left fronto-parietal infarct (since 2011) and old left front infarcts. When informed of the new CVA he and family notes he has been in rehabilitation at [facility] for an acute CVA in July 2018 when he was hospitalized at [facility]. He was admitted for further care. Past Medical History Cardiovascular: CAD, HTN, Hyperlipidemia Pulmonary: Other CENTRAL NERVOUS SYSTEM: CVA Psych: No pertinent hx Musculoskeletal: Osteoarthritis, Other Rheumatologic: No pertinent hx Renal/: Chronic renal insuff Past Surgical History Past Surgical History: Other Family History Family History: Hypertension Social History Smoke: No ALCOHOL: rare Drugs: None, Marijuana Current Medications Current Medications Current Medications Fentanyl Citrate (Fentanyl 2ml Vial) 50 mcg 1X ONCE IV Last administered on 01/22/19at 16:37; Start 01/22/19 at 16:30; Stop 01/22/19 at 16:31; Status DC Active Scripts Active Zofran Odt (Ondansetron) 4 Mg Tab.rapdis 4 Mg PO BID PRN Levsin-Sl (Hyoscyamine Sulfate) 0.125 Mg Tab.subl 1-2 Tab SL PRN Q4HRS Dicyclomine Hcl 20 Mg Tablet 1 Tab PO QID Azithromycin Tablet (Azithromycin) 250 Mg Tablet 250 Mg PO DAILY 4 Days Prednisone 50 Mg Tablet 1 Tab PO DAILY Hammond 5-325 Tablet (Acetaminophen/Hydrocodone Bitart) 1 Each Tablet 1-2 Each PO PRN Q6HRS PRN as needed for pain Aspirin Ec (Aspirin) 325 Mg Tablet.dr 325 Mg PO DAILYWBKFT 30 Days Carvedilol 3.125 Mg Tablet 3.125 Mg PO BIDWMEALS 30 Days Hammond 5-325 Tablet (Acetaminophen/Hydrocodone Bitart) 1 Each Tablet 1 Tab PO PRN Q6HRS PRN Reported Claritin (Loratadine) 10 Mg Tablet 1 Tab PO DAILY Lisinopril 20 Mg Tablet 1 Tab PO DAILY Simvastatin 20 Mg Tablet 1 Tab PO QHS Amlodipine Besylate 10 Mg Tablet 10 Mg PO DAILY NITROGLYCERIN SubLingual (Nitroglycerin) 0.4 Mg Tab.subl 0.4 Mg SL PRN Q5MIN PRN Furosemide 20 Mg Tablet 1 Tab PO DAILY Allergies Allergies: Coded Allergies: No Known Drug Allergies (Unverified , 08/02/14) ROS General: YES: Fatigue, Malaise; No: Chills, Night Sweats, Appetite, Other PSYCHOLOGICAL ROS: YES: Memory difficulties; No: Anxiety, Behavioral Disorder, Concentration difficultie, Decreased libido, Depression, Disorientation, Hallucinations, Hostility, Irritablity, Mood Swings, Obsessive thoughts, Physical abuse, Sexual abuse, Sleep disturbances, Suicidal ideation, Other Eyes: Yes Blurry vision, Yes Double vision; No Decreased vision, No Dry eyes, No Excessive tearing, No Eye Pain, No Itchy Eyes, No Loss of vision, No Photophobia, No Scotomata, No Uses contacts, No Uses glasses, No Other HEENT: No: Heacaches, Visual Changes, Hearing change, Nasal congestion, Nasal discharge, Oral lesions, Sinus pain, Sore Throat, Epistaxis, Sneezing, Snoring, Tinnitus, Vertigo, Vocal changes, Other ALLERGY AND IMMUNOLOGY: No: Hives, Insect Bite Sensitivity, Itchy/Watery Eyes, Nasal Congestion, Post Nasal Drip, Seasonal Allergies, Other Hematological and Lymphatic: No: Bleeding Problems, Blood Clots, Blood Transfusions, Brusing, Night Sweats, Pallor, Swollen Lymph Nodes, Other ENDOCRINE: No: Breast Changes, Galactorrhea, Hair Pattern Changes, Hot Flashes, Malaise/lethargy, Mood Swings, Palpitations, Polydipsia/polyuria, Skin Changes, Temperature Intolerance, Unexpected Weight Changes, Other Breast: No New/Changing Breast Lumps, No Nipple changes, No Nipple discharge, No Other Respiratory: No: Cough, Hemoptysis, Orthopnea, Pleuritic Pain, Shortness of breath, SOB with excertion, Sputum Changes, Stridor, Tachypnea, Wheezing, Other Cardiovascular: yes Chest Pain; No Palpitations, No Orthopnea, No Paroxysmal Noc. Dyspnea, No Edema, No Lt Headedness, No Other Gastrointestinal: No Nausea, No Vomiting, No Abdominal Pain, No Diarrhea, No Constipation, No Melena, No Hematochezia, No Other Genitourinary: No Dysuria, No Frequency, No Incontinence, No Hematuria, No Retention, No Discharge, No Urgency, No Pain, No Flank Pain, No Other, No , No , No , No , No , No , No Musculoskeletal: Yes Gait Disturbance, Yes Joint Pain, Yes Muscle Pain, Yes Muscular Weakness; No Joint Stiffness, No Joint Swelling, No Pain In:, No Swelling In:, No Other Neurological: No Behavorial Changes, No Bowel/Bladder ControlChng, No Confusion, No Dizziness, No Gait Disturbance, No Headaches, No Impaired Coord/balance, No Memory Loss, No Numbness/Tingling, No Seizures, No Speech Problems, No Tremors, No Visual Changes, No Weakness, No Other Skin: No Dry Skin, No Eczema, No Hair Changes, No Lumps, No Mole Changes, No Mottling, No Nail Changes, No Pruritus, No Rash, No Skin Lesion Changes, No Other, No Acne Physical Exam General: Alert, Cooperative, No acute distress HEENT: Atraumatic, PERRLA, EOMI, Mucous membr. moist/pink Lungs: Clear to auscultation, Normal air movement Heart: S1S2, RRR, no gallops, no murmurs Abdomen: Normal bowel sounds, Soft, No tenderness, No hepatosplenomegaly, No masses Rectal Exam: not examined Extremities: No clubbing, No cyanosis, No edema, Normal pulses, No tenderness/s welling Skin: No rashes, No breakdown, No significant lesion Neuro: Normal speech, Cranial nerves 3-12 NL, Other (Dense right hemiparesis and rigth foot drop, decreased right sided sensation) Psych/Mental Status: Mood NL Vitals Vitals Vital Signs Date Time Temp Pulse Resp B/P (MAP) Pulse Ox O2 Delivery O2 Flow Rate FiO2 01/22/19 16:37 14 01/22/19 15:18 98.4 54 115/80 (92) 96 98.4 Labs Labs Laboratory Tests Test 01/22/19 15:15 White Blood Count 5.3 x10^3/uL (4.0-11.0) Red Blood Count 5.00 x10^6/uL (4.30-5.70) Hemoglobin 14.2 g/dL (13.0-17.5) Hematocrit 43.3 % (39.0-53.0) Mean Corpuscular Volume 87 fL (79-100) Mean Corpuscular Hemoglobin 28 pg (25-35) Mean Corpuscular Hemoglobin Concent 33 g/dL (31-37) Red Cell Distribution Width 15.2 % (11.5-14.5) Platelet Count 227 x10^3/uL (140-400) Neutrophils (%) (Auto) 45 % (31-73) Lymphocytes (%) (Auto) 41 % (24-48) Monocytes (%) (Auto) 11 % (0-9) Eosinophils (%) (Auto) 3 % (0-3) Basophils (%) (Auto) 1 % (0-3) Neutrophils # (Auto) 2.4 x10^3uL (1.8-7.7) Lymphocytes # (Auto) 2.2 x10^3/uL (1.0-4.8) Monocytes # (Auto) 0.6 x10^3/uL (0.0-1.1) Eosinophils # (Auto) 0.1 x10^3/uL (0.0-0.7) Basophils # (Auto) 0.0 x10^3/uL (0.0-0.2) Prothrombin Time 13.9 SEC (11.7-14.0) Prothromb Time International Ratio 1.1 (0.8-1.1) Activated Partial Thromboplast Time 32 SEC (24-38) Sodium Level 143 mmol/L (136-145) Potassium Level 3.9 mmol/L (3.5-5.1) Chloride Level 106 mmol/L (98-107) Carbon Dioxide Level 29 mmol/L (21-32) Anion Gap 8 (6-14) Blood Urea Nitrogen 16 mg/dL (8-26) Creatinine 1.1 mg/dL (0.7-1.3) Estimated GFR (Cockcroft-Gault) 84.1 BUN/Creatinine Ratio 15 (6-20) Glucose Level 110 mg/dL (70-99) Calcium Level 9.2 mg/dL (8.5-10.1) Magnesium Level 1.9 mg/dL (1.8-2.4) Total Bilirubin 0.3 mg/dL (0.2-1.0) Aspartate Amino Transf (AST/SGOT) 20 U/L (15-37) Alanine Aminotransferase (ALT/SGPT) 30 U/L (16-63) Alkaline Phosphatase 74 U/L (46-116) Troponin I Quantitative < 0.017 ng/mL (0.000-0.055) Total Protein 6.9 g/dL (6.4-8.2) Albumin 3.7 g/dL (3.4-5.0) Albumin/Globulin Ratio 1.2 (1.0-1.7) Laboratory Tests Test 01/22/19 15:15 White Blood Count 5.3 x10^3/uL (4.0-11.0) Red Blood Count 5.00 x10^6/uL (4.30-5.70) Hemoglobin 14.2 g/dL (13.0-17.5) Hematocrit 43.3 % (39.0-53.0) Mean Corpuscular Volume 87 fL (79-100) Mean Corpuscular Hemoglobin 28 pg (25-35) Mean Corpuscular Hemoglobin Concent 33 g/dL (31-37) Red Cell Distribution Width 15.2 % (11.5-14.5) Platelet Count 227 x10^3/uL (140-400) Neutrophils (%) (Auto) 45 % (31-73) Lymphocytes (%) (Auto) 41 % (24-48) Monocytes (%) (Auto) 11 % (0-9) Eosinophils (%) (Auto) 3 % (0-3) Basophils (%) (Auto) 1 % (0-3) Neutrophils # (Auto) 2.4 x10^3uL (1.8-7.7) Lymphocytes # (Auto) 2.2 x10^3/uL (1.0-4.8) Monocytes # (Auto) 0.6 x10^3/uL (0.0-1.1) Eosinophils # (Auto) 0.1 x10^3/uL (0.0-0.7) Basophils # (Auto) 0.0 x10^3/uL (0.0-0.2) Prothrombin Time 13.9 SEC (11.7-14.0) Prothromb Time International Ratio 1.1 (0.8-1.1) Activated Partial Thromboplast Time 32 SEC (24-38) Sodium Level 143 mmol/L (136-145) Potassium Level 3.9 mmol/L (3.5-5.1) Chloride Level 106 mmol/L (98-107) Carbon Dioxide Level 29 mmol/L (21-32) Anion Gap 8 (6-14) Blood Urea Nitrogen 16 mg/dL (8-26) Creatinine 1.1 mg/dL (0.7-1.3) Estimated GFR (Cockcroft-Gault) 84.1 BUN/Creatinine Ratio 15 (6-20) Glucose Level 110 mg/dL (70-99) Calcium Level 9.2 mg/dL (8.5-10.1) Magnesium Level 1.9 mg/dL (1.8-2.4) Total Bilirubin 0.3 mg/dL (0.2-1.0) Aspartate Amino Transf (AST/SGOT) 20 U/L (15-37) Alanine Aminotransferase (ALT/SGPT) 30 U/L (16-63) Alkaline Phosphatase 74 U/L (46-116) Troponin I Quantitative < 0.017 ng/mL (0.000-0.055) Total Protein 6.9 g/dL (6.4-8.2) Albumin 3.7 g/dL (3.4-5.0) Albumin/Globulin Ratio 1.2 (1.0-1.7) Images Images CXR- Left lower lobe opacity possibly due to asymmetric overlying soft tissue artifact or infiltrate. CT Head - 1. New region of hypodensity within the posterior lateral left frontal lobe cortex and subcortical white matter. This is likely an infarct of uncertain chronicity. MRI may be useful to assess chronicity. 2. Chronic infarcts within the anterior medial left frontal lobe with involvement of the corpus callosum and the left basal ganglia with involvement of the adjacent left frontal white matter. 3. Subtle areas of hypodensity within the cerebral white matter, likely due to chronic small vessel disease. 02/2018 ECHO - The left ventricular systolic function is normal. The ejection fraction is estimated at 60-65%. There is normal LV segmental wall motion. Doppler and Color Flow revealed trace tricuspid valve regurgitation. There is no evidence of significant pericardial effusion. VTE Prophylaxis Ordered VTE Prophylaxis Devices: No VTE Pharmacological Prophylaxi: Yes Assessment/Plan Assessment/Plan A/P: Chest pain - troponin normal, EKG SR. Likely GERD. Tele, trend trops, consult cardiology Blurred vision - CT concerning for new CVA, however this is in comparison to 2012 read. WIll need to compare to [facility] CT head since his most recent CVA. ASA, statin. Consult neurology. Vision testing HTN - cont home meds GERD - PPI may be appropriate HLD - cont statin Thigh myalgias - could be statin intolerance, will check vitamin D, replace if necessary, consider statin holiday, though he needs it for his recent CVA CAD - 2VD per [facility] 10/17/2017. OM!, RPDA, RPL Tobacco abuse - apparently he has quit despite being at a SNF where smoking is allowed. Cont cessation Obesity - lost weight since last visit [facility] - does not use CPAP FEN - Cardiac diet, NPO after midnight PPX - lovenox FULL CODE Inpatient for CVA symptoms outside tPA window and acute chest pain in known CAD patient. STEPHANIE ESCALANTE MD January 22, 2019 17:04
[2019-01-22 17:57] VITALS: BP 129/89
[2019-01-22 19:00] VITALS: BP 137/96
[2019-01-22] MEDS ORDERED: NITROGLYCERIN SUBLINGUAL 0.4 MG BOTTLE OF 25. SL PRN ×2 (19:45→22:00)
[2019-01-22] MEDS ORDERED: ONDANSETRON ODT 4 MG TAB.RAPDIS. PO PRN (19:45)
[2019-01-22] MEDS ORDERED: RANI-376 PO (21:46)
[2019-01-22] MEDS ORDERED: POLY17PO29 PO (21:46)
[2019-01-22] MEDS ORDERED: AZEL137S3 NS (21:46)
[2019-01-22] MEDS ORDERED: CARB15DR3 EACHEYE (21:46)
[2019-01-22] MEDS ORDERED: FURO-69 PO (21:46)
[2019-01-22] MEDS ORDERED: CLOP75TA PO (21:46)
[2019-01-22] MEDS ORDERED: PANT20TA2 PO (21:46)
[2019-01-22] MEDS ORDERED: LISI-130 PO (21:46)
[2019-01-22] MEDS ORDERED: KETO5DRO4 EACHEYE (21:46)
[2019-01-22] MEDS ORDERED: GUAI600T47 PO (21:46)
[2019-01-22] MEDS ORDERED: CRESTOR40 MG PO (21:46)
[2019-01-22] MEDS ORDERED: AMLO10TA4 PO (21:46)
[2019-01-22] MEDS ORDERED: CARV12.5 PO (21:46)
[2019-01-22] MEDS ORDERED: MIRT15TA PO (21:46)
[2019-01-22] MEDS ORDERED: ASPI-630 PO (21:46)
[2019-01-22] MEDS ORDERED: ACET325T9 PO (21:46)
[2019-01-22] MEDS ORDERED: FLUT9.9S NS (21:46)
[2019-01-22] MEDS ORDERED: HYDR-3164 PO (21:46)
[2019-01-22] MEDS ORDERED: BACL20TA PO (21:46)
[2019-01-22] MEDS ORDERED: CETI10TA22 PO (21:46)
[2019-01-22] MEDS ORDERED: DICL100G18 TP (21:46)
[2019-01-22] MEDS ORDERED: SERT50TA PO (21:46)
[2019-01-22] MEDS ORDERED: SENN8.6T99 PO (21:46)
[2019-01-22] MEDS ORDERED: NITR0.4T SL (21:46)
[2019-01-22] MEDS ORDERED: SENNOSIDES 8.6 MG TABLET PO PRN (22:00)
[2019-01-22] MEDS ORDERED: ACETAMINOPHEN 325 MG TABLET. PO PRN (22:00)
[2019-01-22] MEDS ORDERED: HYDROcodone/APAP 5/325MG 1 TAB TABLET PO PRN (22:00)
[2019-01-22] MEDS ORDERED: AZELASTINE NASAL SPRAY 30ML BOTTLE. NS PRN (22:00)
[2019-01-22] MEDS: SIMVASTATIN 20 MG TABLET PO SCH (22:32)
[2019-01-22] MEDS: DICYCLOMINE HCL 10 MG CAPSULE PO SCH (22:33)
[2019-01-22] MEDS: ENOXAPARIN 40 MG/0.4 ML SYRINGE. SQ SCH (22:33)
[2019-01-22 22:50] VITALS: BP 140/87
[2019-01-22] MEDS: MIRTAZAPINE 7.5 MG TABLET. PO SCH (23:00)
[2019-01-22] MEDS: ATORVASTATIN CALCIUM 40 MG TABLET. PO SCH (23:00)
[2019-01-23 02:44] VITALS: BP 130/88
[2019-01-23 04:16] LABS: BASO % 1 % (0-3); EOS # 0.2 x10^3/uL (0.0-0.7); EOS % 3 % (0-3); HEMATOCRIT 41.2 % (39.0-53.0); HEMOGLOBIN 13.4 g/dL (13.0-17.5); LYMPH # 2.9 x10^3/uL (1.0-4.8); LYMPH % 50 % (24-48); MEAN CORPUSCULAR HEMOGLOBIN 28 pg (25-35); MEAN CORPUSCULAR HGB CONC 33 g/dL (31-37); MEAN CORPUSCULAR VOLUME 87 fL (79-100); MONO # 0.7 x10^3/uL (0.0-1.1); MONO % 12 % (0-9); NEUT # 2.1 x10^3uL (1.8-7.7); NEUT % 36 % (31-73); PLATELET COUNT 228 x10^3/uL (140-400); RED BLOOD COUNT 4.75 x10^6/uL (4.30-5.70); RED CELL DISTRIBUTION WIDTH 14.8 % (11.5-14.5); WHITE BLOOD COUNT 5.9 x10^3/uL (4.0-11.0)
[2019-01-23 05:25] LABS: GFR 93.9; POTASSIUM 3.7 mmol/L (3.5-5.1)
[2019-01-23 06:26] LABS: BILIRUBIN,URINE NEGATIVE (NEG); CLARITY,URINE CLEAR; COLOR,URINE YELLOW; NITRITE,URINE NEGATIVE (NEG); PROTEIN,URINE NEGATIVE (NEG-TRACE)
--- NOTE | 2019-01-23 06:34 | EKG ---
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 ABNORMAL ECG Electronically Signed On 01-25-2019 16:03:18 CDT by Naresh Ochoa
[2019-01-23] MEDS: HYDROcodone/APAP 5/325MG 1 TAB TABLET PO PRN ×2 (06:43→16:25)
[2019-01-23 06:44] LABS: BACTERIA,URINE 0 /HPF (0-FEW); RBC,URINE 0 /HPF (0-2); SQUAMOUS EPITHELIAL CELL,UR OCC /LPF
[2019-01-23 07:00] VITALS: BP 136/92
[2019-01-23] MEDS ORDERED: ASPIRIN CHEWABLE 81 MG TABLET. PO SCH (08:00)
[2019-01-23] MEDS ORDERED: ASPIRIN ENTERIC COATED 325 MG TABLET.DR. PO SCH (08:00)
[2019-01-23] MEDS ORDERED: CARVEDILOL 12.5 MG TABLET. PO SCH (08:00)
[2019-01-23] MEDS ORDERED: CETIRIZINE HCL 10 MG TABLET. PO SCH (09:00)
[2019-01-23] MEDS: KETOTIFEN FUMARATE 0.025% OPHTH SOLUTION BOTTLE. OU SCH ×2 (09:00→21:00)
[2019-01-23] MEDS: POLYVINYL ALCOHOL 1.4% OPHTH SOLUTION 15ML BOTTLE. OU SCH ×4 (09:00→21:18)
[2019-01-23] MEDS ORDERED: ACETAMINOPHEN 650 MG SUPP.RECT. PR PRN (09:00)
[2019-01-23] MEDS ORDERED: amLODIPine BESYLATE 10 MG TABLET PO SCH (09:00)
[2019-01-23] MEDS: DICLOFENAC SODIUM 1% TOPICAL GEL 100GM TUBE. TP SCH ×4 (09:00→21:21)
[2019-01-23] MEDS ORDERED: LISINOPRIL 20 MG TABLET PO SCH (09:00)
[2019-01-23] MEDS ORDERED: ACETAMINOPHEN 325 MG TABLET. PO PRN (09:00)
[2019-01-23] MEDS ORDERED: FUROSEMIDE 20 MG TABLET PO SCH (09:00)
[2019-01-23] MEDS ORDERED: IOHEXOL 300 MG/ML 100ML VIAL. IV ONE (09:15)
[2019-01-23] MEDS: FLUTICASONE 50MCG/NASAL SPRAY 16GM BOTTLE. NS SCH (09:21)
--- NOTE | 2019-01-23 09:36 | PDOC2 ---
SORAIDA,EMILY NAZ 01/23/19 0936: CARDIAC CONSULT DATE OF CONSULT Date of Consult DATE: 01/23/19 TIME: 09:21 REASON FOR CONSULT Reason for Consult: Chest pain REFERRING PHYSICIAN Referring Physician: Maddison Parrish APRN SOURCE Source: Chart review, Patient HISTORY OF PRESENT ILLNESS HISTORY OF PRESENT ILLNESS This is a 53 yo male, with a history of CAD, HTN, HLP, and CVA with most recent 07/2018, who presented secondary to chest pain. Has been at rehab facility mainly since suffering stroke this past July. Yesterday, began having pain in his central chest during therapy. Describes as pressure. Non-radiating. Associated with mild SOA. No dizziness, diaphoresis, palpitations, or nausea/vomiting. Pain resolved in ED with fentanyl. Pain returned this morning and has been constant. No specific worsening or relieving factors. Also reports having double vision in his left eye for the last 3 days. Patient had cardiac workup at late last year. Echocardiogram revealed preserved LV systolic function. No evidence of intracardiac shunting. Stress test 06/2018 without evidence of ischemia or infarct. Event monitor for 29 days without evidence of significant arrhythmias. PAST MEDICAL HISTORY Past Medical History Cardiovascular: CAD, HTN, Hyperlipidemia Pulmonary: Other ([facility]) CENTRAL NERVOUS SYSTEM: (CVA 2004, 2017) Musculoskeletal: Osteoarthritis, Other (obesity) Renal/: Chronic renal insuff PAST SURGICAL HISTORY Past Surgical History Other ([facility] 10/17/2017) FAMILY HISTORY Family History: Hypertension SOCIAL HISTORY Social History Smoke: Quit 07/2018 ALCOHOL: none Drugs: None Lives: rehab facility. Medical Malin CURRENT MEDICATIONS CURRENT MEDICATIONS Current Medications Medications (Trade) Dose Ordered Sig/Theodora Route PRN Reason Start Time Stop Time Status Last Admin Dose Admin Fentanyl Citrate (Fentanyl 2ml Vial) 50 mcg 1X ONCE IV 01/22/19 16:30 01/22/19 16:31 DC 01/22/19 16:37 Acetaminophen/ Hydrocodone Bitart (Lortab 5/325) 1 tab PRN Q6HRS PRN PO PAIN 01/22/19 19:45 01/23/19 06:43 Dicyclomine HCl (Bentyl) 20 mg QID PO 01/22/19 21:00 01/22/19 22:33 Simvastatin (Zocor) 20 mg HS PO 01/22/19 21:00 01/22/19 22:32 Enoxaparin Sodium (Lovenox 40mg Syringe) 40 mg Q24H SQ 01/22/19 20:00 01/22/19 22:33 ALLERGIES ALLERGIES: Coded Allergies: No Known Drug Allergies (Unverified , 08/02/14) ROS Review of System 14 point ROS conducted with pertinent positives noted above in HPI. PHYSICAL EXAM PHYSICAL EXAM General: Alert, Oriented X3, Cooperative, No acute distress HEENT: Atraumatic, Mucous membr. moist/pink Lungs: Clear to auscultation, Normal air movement Heart: Regular rate (SR/SB with no significant ectopy), no murmur Extremities: No cyanosis, trace bilateral LE edema Skin: No breakdown, No significant lesion Neuro: Normal speech, Sensation intact Psych/Mental Status: Mental status NL, Mood NL MUSCULOSKELETAL: right sided weakness VITALS VITALS Vital Signs Date Time Temp Pulse Resp B/P (MAP) Pulse Ox O2 Delivery O2 Flow Rate FiO2 01/23/19 08:07 14 95 Room Air 01/23/19 07:00 97.7 53 136/92 (107) 97.7 LABS Lab: Laboratory Tests Test 01/22/19 15:15 01/22/19 22:05 01/23/19 00:55 01/23/19 06:00 White Blood Count 5.3 x10^3/uL (4.0-11.0) 5.9 x10^3/uL (4.0-11.0) Red Blood Count 5.00 x10^6/uL (4.30-5.70) 4.75 x10^6/uL (4.30-5.70) Hemoglobin 14.2 g/dL (13.0-17.5) 13.4 g/dL (13.0-17.5) Hematocrit 43.3 % (39.0-53.0) 41.2 % (39.0-53.0) Mean Corpuscular Volume 87 fL (79-100) 87 fL (79-100) Mean Corpuscular Hemoglobin 28 pg (25-35) 28 pg (25-35) Mean Corpuscular Hemoglobin Concent 33 g/dL (31-37) 33 g/dL (31-37) Red Cell Distribution Width 15.2 % (11.5-14.5) 14.8 % (11.5-14.5) Platelet Count 227 x10^3/uL (140-400) 228 x10^3/uL (140-400) Neutrophils (%) (Auto) 45 % (31-73) 36 % (31-73) Lymphocytes (%) (Auto) 41 % (24-48) 50 % (24-48) Monocytes (%) (Auto) 11 % (0-9) 12 % (0-9) Eosinophils (%) (Auto) 3 % (0-3) 3 % (0-3) Basophils (%) (Auto) 1 % (0-3) 1 % (0-3) Neutrophils # (Auto) 2.4 x10^3uL (1.8-7.7) 2.1 x10^3uL (1.8-7.7) Lymphocytes # (Auto) 2.2 x10^3/uL (1.0-4.8) 2.9 x10^3/uL (1.0-4.8) Monocytes # (Auto) 0.6 x10^3/uL (0.0-1.1) 0.7 x10^3/uL (0.0-1.1) Eosinophils # (Auto) 0.1 x10^3/uL (0.0-0.7) 0.2 x10^3/uL (0.0-0.7) Basophils # (Auto) 0.0 x10^3/uL (0.0-0.2) 0.0 x10^3/uL (0.0-0.2) Prothrombin Time 13.9 SEC (11.7-14.0) Prothromb Time International Ratio 1.1 (0.8-1.1) Activated Partial Thromboplast Time 32 SEC (24-38) Sodium Level 143 mmol/L (136-145) 142 mmol/L (136-145) Potassium Level 3.9 mmol/L (3.5-5.1) 3.7 mmol/L (3.5-5.1) Chloride Level 106 mmol/L (98-107) 107 mmol/L (98-107) Carbon Dioxide Level 29 mmol/L (21-32) 29 mmol/L (21-32) Anion Gap 8 (6-14) 6 (6-14) Blood Urea Nitrogen 16 mg/dL (8-26) 15 mg/dL (8-26) Creatinine 1.1 mg/dL (0.7-1.3) 1.0 mg/dL (0.7-1.3) Estimated GFR (Cockcroft-Gault) 84.1 93.9 BUN/Creatinine Ratio 15 (6-20) Glucose Level 110 mg/dL (70-99) 90 mg/dL (70-99) Calcium Level 9.2 mg/dL (8.5-10.1) 9.0 mg/dL (8.5-10.1) Magnesium Level 1.9 mg/dL (1.8-2.4) Total Bilirubin 0.3 mg/dL (0.2-1.0) Aspartate Amino Transf (AST/SGOT) 20 U/L (15-37) Alanine Aminotransferase (ALT/SGPT) 30 U/L (16-63) Alkaline Phosphatase 74 U/L (46-116) Troponin I Quantitative < 0.017 ng/mL (0.000-0.055) < 0.017 ng/mL (0.000-0.055) 0.017 ng/mL (0.000-0.055) Total Protein 6.9 g/dL (6.4-8.2) Albumin 3.7 g/dL (3.4-5.0) Albumin/Globulin Ratio 1.2 (1.0-1.7) Thyroid Stimulating Hormone (TSH) 0.249 uIU/mL (0.358-3.74) Triglycerides Level 87 mg/dL (0-150) Cholesterol Level 115 mg/dL (0-200) LDL Cholesterol, Calculated 69 mg/dL (0-100) VLDL Cholesterol, Calculated 17 mg/dL (0-40) Non-HDL Cholesterol Calculated 86 mg/dL (0-129) HDL Cholesterol 29 mg/dL (40-60) Cholesterol/HDL Ratio 4.0 Urine Collection Type Unknown Urine Color Yellow Urine Clarity Clear Urine pH 6.0 Urine Specific Calvert 1.020 Urine Protein Negative mg/dL (NEG-TRACE) Urine Glucose (UA) Negative mg/dL (NEG) Urine Ketones (Stick) Negative mg/dL (NEG) Urine Blood Negative (NEG) Urine Nitrite Negative (NEG) Urine Bilirubin Negative (NEG) Urine Urobilinogen Dipstick 1.0 mg/dL (0.2 mg/dL) Urine Leukocyte Esterase Negative (NEG) Urine RBC 0 /HPF (0-2) Urine WBC 1-4 /HPF (0-4) Urine Squamous Epithelial Cells Occ /LPF Urine Bacteria 0 /HPF (0-FEW) Urine Mucus Mod /LPF ECHOCARDIOGRAM ECHOCARDIOGRAM <Conclusion> The left ventricular systolic function is normal. The ejection fraction is estimated at 60-65%. There is normal LV segmental wall motion. Doppler and Color Flow revealed trace tricuspid valve regurgitation. There is no evidence of significant pericardial effusion. DATE: 02/18/18 1539 HEART CATH HEART CATH CORONARY ANGIOGRAPHY: LM is a large caliber vessel with normal angiographic appearance. LAD is a large caliber vessel with normal angiographic appearance. D1 is a moderate caliber bifurcating vessel with normal angiographic appearance. LCx is a moderate caliber vessel with mild luminal irregularities. OM1 is a small caliber vessel with a mid 70% stenosis and tapers to a very small caliber vessel distally. RCA is a large caliber dominant vessel with normal angiographic appearance. RPDA is a small to moderate caliber vessel with moderate diffuse disease of up to 50%. RPL is a small caliber vessel with mild diffuse irregularities of up to 50%. Conclusion 1. Moderate two vessel disease in small caliber vessels. 2. Normal LVEDP. Recommendations Aggressive Medical Therapy DATE: 10/18/17 1154 ASSESSMENT/PLAN ASSESSMENT/PLAN 1. Chest pain; atypical. Troponin series normal- AMI ruled out. MPI 06/2018 at without any evidence of ischemia or infarct. 2. Blurred vision; concerns for acute CVA. MRI pending 3. CAD; known small caliber 2VD per [facility] 10/17/2017. 4. H/o CVA; 2004, 2017. Echo 08/07 without evidence of intracardiac shunting. Event monitor 10/08 without significant arrhythmias. 5. Hypertension; controlled 6. Hyperlipidemia 7. [facility] Recommendations Echo to assess LV systolic function Continue with ASA, lisinopril, coreg, and statin Follow neuro recs Will plan for GILDA to r/o clots, masses, or shunting not seen on echocardiogram. QUANG BLEVINS MD 01/23/19 1679: CARDIAC CONSULT ASSESSMENT/PLAN ASSESSMENT/PLAN Patient seen and examined. Agree with above nurse practitioner note. 53-year-old man with recurrent stroke. Prior evaluation through [facility] has been unremarkable. He has had a negative event recorder, negative perfusion study and a normal echocardiogram but this was not a transesophageal echo. We will perform a bubble study and obtain a GILDA to rule out any intracardiac cardiac masses. EBONY QUIGLEY APRN January 23, 2019 09:36 QUANG BLEVINS MD January 23, 2019 17:06
--- NOTE | 2019-01-23 10:05 | PDOC2 ---
NEUROLOGY CONSULT Date of Admission Date of Admission DATE: 01/23/19 TIME: 09:58 Reason for Consult Reason for Consult: Possible stroke Referring Physician Referring Physician: Dr. Saenz Source Source: Chart review, Patient History of Present Illness History of Present Illness The patient is a 53-year-old right-handed male with history of several strokes. His most recent stroke was in July of last year and he was hospitalized at . He has bilateral weakness in his wheelchair-bound in the care home. Yesterday he was noticing some chest pain and some blurred vision in the right visual field. Today he is complaining more of diplopia. He denies any headache. There is no history of seizure or head injury. Past Medical History Cardiovascular: CHF, HTN Pulmonary: Other ( sleep apnea) CENTRAL NERVOUS SYSTEM: CVA, Dementia ENT: Other (Dry eye syndrome) Past Surgical History Past Surgical History: No pertinent history Family History Family History: CVA Social History Social History care home resident, no alcohol or tobacco, used to smoke tobacco Current Medications Current Medications Current Medications Fentanyl Citrate (Fentanyl 2ml Vial) 50 mcg 1X ONCE IV Last administered on 01/22/19at 16:37; Start 01/22/19 at 16:30; Stop 01/22/19 at 16:31; Status DC Amlodipine Besylate (Norvasc) 10 mg DAILY PO ; Start 01/23/19 at 09:00 Aspirin (Ecotrin) 325 mg DAILYWBKFT PO ; Start 01/23/19 at 08:00; Stop 01/23/19 at 08:00; Status DC Carvedilol (Coreg) 3.125 mg BIDWMEALS PO ; Start 01/23/19 at 08:00 Furosemide (Lasix) 20 mg DAILY PO ; Start 01/23/19 at 09:00; Stop 01/23/19 at 09:00; Status DC Acetaminophen/ Hydrocodone Bitart (Lortab 5/325) 1 tab PRN Q6HRS PRN PO PAIN Last administered on 01/23/19at 06:43; Start 01/22/19 at 19:45 Lisinopril (Prinivil) 20 mg DAILY PO ; Start 01/23/19 at 09:00 Nitroglycerin (Nitrostat) 0.4 mg PRN Q5MIN PRN SL CHEST PAIN; Start 01/22/19 at 19:45; Stop 01/22/19 at 22:16; Status DC Ondansetron HCl (Zofran Odt) 4 mg PRN BID PRN PO NAUSEA/VOMITING; Start 01/22/19 at 19:45 Dicyclomine HCl (Bentyl) 20 mg QID PO Last administered on 01/22/19at 22:33; Start 01/22/19 at 21:00 Cetirizine HCl (ZyrTEC) 10 mg DAILY PO ; Start 01/23/19 at 09:00 Simvastatin (Zocor) 20 mg HS PO Last administered on 01/22/19at 22:32; Start 01/22/19 at 21:00 Enoxaparin Sodium (Lovenox 40mg Syringe) 40 mg Q24H SQ Last administered on 01/22/19at 22:33; Start 01/22/19 at 20:00 Acetaminophen (Tylenol) 325 mg PRN Q6HRS PRN PO PAIN; Start 01/22/19 at 22:00; Stop 01/23/19 at 09:02; Status DC Amlodipine Besylate (Norvasc) 10 mg DAILY PO ; Start 01/23/19 at 09:00; Stop 01/23/19 at 09:00; Status DC Aspirin (Children'S Aspirin) 81 mg DAILYWBKFT PO ; Start 01/23/19 at 08:00; Status Cancel Azelastine HCl (Astelin) 2 spray PRN BID PRN NS ALLERGIES; Start 01/22/19 at 22:00 Carvedilol (Coreg) 12.5 mg BIDWMEALS PO ; Start 01/23/19 at 08:00; Status Cancel Cetirizine HCl (ZyrTEC) 10 mg DAILY PO ; Start 01/23/19 at 09:00; Status Cancel Clopidogrel Bisulfate (Plavix) 75 mg DAILY PO ; Start 01/23/19 at 09:00 Diclofenac Sodium (Voltaren) 1 eric QID TP ; Start 01/23/19 at 09:00 Guaifenesin (Mucinex) 600 mg BID PO ; Start 01/23/19 at 09:00 Acetaminophen/ Hydrocodone Bitart (Lortab 5/325) 1 tab PRN BID PRN PO PAIN; Start 01/22/19 at 22:00; Status Cancel Lisinopril (Prinivil) 40 mg DAILY PO ; Start 01/23/19 at 09:00; Stop 01/23/19 at 09:00; Status DC Nitroglycerin (Nitrostat) 0.4 mg PRN Q5MIN PRN SL CHEST PAIN; Start 01/22/19 at 22:00 Sertraline HCl (Zoloft) 50 mg DAILY PO ; Start 01/23/19 at 09:00 Baclofen (Lioresal) 20 mg QID PO ; Start 01/23/19 at 09:00 Artificial Tears (Artificial Tears) 1 drop QID OU ; Start 01/23/19 at 09:00 Fluticasone Propionate (Flonase) 2 spray DAILY NS Last administered on 01/23/19at 09:21; Start 01/23/19 at 09:00 Ketotifen Fumarate (Zaditor) 1 drop BID OU ; Start 01/23/19 at 09:00 Mirtazapine (Remeron) 7.5 mg HS PO ; Start 01/22/19 at 23:00 Pantoprazole Sodium (Protonix) 20 mg DAILYAC PO ; Start 01/23/19 at 07:30 Polyethylene Glycol (miraLAX PACKET) 17 gm DAILY PO ; Start 01/23/19 at 09:00 Atorvastatin Calcium (Lipitor) 80 mg HS PO ; Start 01/22/19 at 23:00 Sennosides (Senna) 17.2 mg PRN BID PRN PO CONSTIPATION; Start 01/22/19 at 22:00 Acetaminophen (Tylenol) 650 mg PRN Q6HRS PRN PO TEMP > 100.4F; Start 01/23/19 at 09:00 Acetaminophen (Tylenol Supp) 650 mg PRN Q4HRS PRN DC TEMP > 100.4F; Start 01/23/19 at 09:00 Aspirin (Ecotrin) 325 mg DAILYWBKFT PO ; Start 01/23/19 at 09:30 Iohexol (Omnipaque 300 Mg/ml) 75 ml 1X ONCE IV ; Start 01/23/19 at 09:15; Stop 01/23/19 at 09:16; Status DC Active Scripts Active Zofran Odt (Ondansetron) 4 Mg Tab.rapdis 4 Mg PO BID PRN Levsin-Sl (Hyoscyamine Sulfate) 0.125 Mg Tab.subl 1-2 Tab SL PRN Q4HRS Dicyclomine Hcl 20 Mg Tablet 1 Tab PO QID Azithromycin Tablet (Azithromycin) 250 Mg Tablet 250 Mg PO DAILY 4 Days Prednisone 50 Mg Tablet 1 Tab PO DAILY Moorcroft 5-325 Tablet (Acetaminophen/Hydrocodone Bitart) 1 Each Tablet 1-2 Each PO PRN Q6HRS PRN as needed for pain Aspirin Ec (Aspirin) 325 Mg Tablet.dr 325 Mg PO DAILYWBKFT 30 Days Carvedilol (Carvedilol) 3.125 Mg Tablet 3.125 Mg PO BIDWMEALS 30 Days Moorcroft 5-325 Tablet (Acetaminophen/Hydrocodone Bitart) 1 Each Tablet 1 Tab PO PRN Q6HRS PRN Reported Zaditor (Ketotifen Fumarate) 5 Ml Drops 1 Drop EACHEYE BID Zantac (Ranitidine Hcl) 150 Mg Tablet 150 Mg PO BID Zoloft (Sertraline Hcl) 50 Mg Tablet 50 Mg PO DAILY MDD 1.5 tablet daily Zyrtec (Cetirizine Hcl) 10 Mg Tablet 10 Mg PO DAILY Voltaren (Diclofenac Sodium) 100 Gm Gel..gram. 1 Gm TP QID Senokot (Sennosides) 8.6 Mg Tablet 2 Tab PO PRN BID MDD 8.6-50 Remeron (Mirtazapine) 15 Mg Tablet 7.5 Mg PO HS Protonix (Pantoprazole Sodium) 20 Mg Tablet.dr 20 Mg PO DAILY Clopidogrel (Clopidogrel Bisulfate) 75 Mg Tablet 75 Mg PO DAILY Norvasc (Amlodipine Besylate) 10 Mg Tablet 10 Mg PO DAILY Moorcroft 5-325 Tablet (Acetaminophen/Hydrocodone Bitart) 1 Each Tablet 1 Tab PO BID PRN Nitrostat (Nitroglycerin) 0.4 Mg Tab.subl 0.4 Mg SL PRN Q5MIN PRN Mucinex (Guaifenesin) 600 Mg Tablet.er 600 Mg PO BID Miralax (Polyethylene Glycol 3350) 17 Gm Powd.pack 1 Pkt PO DAILY Lisinopril 40 Mg Tablet 40 Mg PO DAILY Lasix (Furosemide) 20 Mg Tablet 20 Mg PO DAILY Flonase Allergy Relief (Fluticasone Propionate) 9.9 Ml [place].susp 2 Sprays NS DAILY Refresh Optive Eye Drops (Carboxymethylcellulos/Glycerin) 15 Ml Drops 1 Drop EA CHEYE QID Crestor (Rosuvastatin Calcium) 40 Mg Tablet 40 Mg PO HS Coreg (Carvedilol) 12.5 Mg Tablet 12.5 Mg PO BIDWMEALS Baclofen 20 Mg Tablet 20 Mg PO QID Azelastine Hcl 137 Mcg/0.137 Ml [place].pump 137 Mcg NS BID PRN Aspirin 81 Mg Tab.chew 81 Mg PO DAILY Tylenol (Acetaminophen) 325 Mg Tablet 325 Mg PO PRN Q6HRS PRN Claritin (Loratadine) 10 Mg Tablet 1 Tab PO DAILY Lisinopril 20 Mg Tablet 1 Tab PO DAILY Simvastatin 20 Mg Tablet 1 Tab PO QHS Amlodipine Besylate 10 Mg Tablet 10 Mg PO DAILY NITROGLYCERIN SubLingual (Nitroglycerin) 0.4 Mg Tab.subl 0.4 Mg SL PRN Q5MIN PRN Furosemide 20 Mg Tablet 1 Tab PO DAILY Allergies Allergies: Coded Allergies: I S O L A T I O N *CONTACT* (Verified Allergy, Unknown, 01/24/19) mrsa No Known Medication Allergies (Verified Allergy, Unknown, 01/24/19) ROS Review of System Negative for fever, chills, weight loss, shortness of breath, chest pain, indigestion, hematochezia, melena, and dysuria. Full 14-point review of systems is negative. Physical Exam Physical Examination General: Well-developed, well-nourished black male in no acute distress HEENT: Normocephalic andatraumatic.Temporal arteriespulsatile and nontender Neck: Supple without bruit, no meningismus Musculoskeletal: Stability:see neurologic. Gait exam:see neurologic. Tone:see neurologic.Strength:see neurologic. Neurological: Mental Status:orientation, memory, attention span/concentration, language, fund of knowledge: knows location, not date, some psychomotor slowing and spastic dysarthria. Cranial Nerves:Pupils equal and reactive to light, visual siegel are full to confrontation. There is a left lateral rectus palsy. Facial sensation is normal. There is no facial asymmetry. Vestibulo-ocular reflex is intact. Palate elevates and tongue protrudes in midline. All other cranial related problems are negative except as mentioned before.Reflexes:2+ and symmetric with flexor plantar responses. Motor: bilateral spasticity, weaker on the left side, best strength 3/5. Coordination: deficits not out of proportion to weakness. Rapid alternating movements and fine finger movements are intact. Gait: not tested. Sensory:Normal pinprick, vibration, light touch, proprioception. Vitals VITALS Vital Signs Date Time Temp Pulse Resp B/P (MAP) Pulse Ox O2 Delivery O2 Flow Rate FiO2 01/23/19 08:07 14 95 Room Air 01/23/19 07:00 97.7 53 136/92 (107) 97.7 Labs Labs Laboratory Tests Test 01/22/19 15:15 01/22/19 22:05 01/23/19 00:55 01/23/19 06:00 White Blood Count 5.3 x10^3/uL (4.0-11.0) 5.9 x10^3/uL (4.0-11.0) Red Blood Count 5.00 x10^6/uL (4.30-5.70) 4.75 x10^6/uL (4.30-5.70) Hemoglobin 14.2 g/dL (13.0-17.5) 13.4 g/dL (13.0-17.5) Hematocrit 43.3 % (39.0-53.0) 41.2 % (39.0-53.0) Mean Corpuscular Volume 87 fL (79-100) 87 fL (79-100) Mean Corpuscular Hemoglobin 28 pg (25-35) 28 pg (25-35) Mean Corpuscular Hemoglobin Concent 33 g/dL (31-37) 33 g/dL (31-37) Red Cell Distribution Width 15.2 % (11.5-14.5) 14.8 % (11.5-14.5) Platelet Count 227 x10^3/uL (140-400) 228 x10^3/uL (140-400) Neutrophils (%) (Auto) 45 % (31-73) 36 % (31-73) Lymphocytes (%) (Auto) 41 % (24-48) 50 % (24-48) Monocytes (%) (Auto) 11 % (0-9) 12 % (0-9) Eosinophils (%) (Auto) 3 % (0-3) 3 % (0-3) Basophils (%) (Auto) 1 % (0-3) 1 % (0-3) Neutrophils # (Auto) 2.4 x10^3uL (1.8-7.7) 2.1 x10^3uL (1.8-7.7) Lymphocytes # (Auto) 2.2 x10^3/uL (1.0-4.8) 2.9 x10^3/uL (1.0-4.8) Monocytes # (Auto) 0.6 x10^3/uL (0.0-1.1) 0.7 x10^3/uL (0.0-1.1) Eosinophils # (Auto) 0.1 x10^3/uL (0.0-0.7) 0.2 x10^3/uL (0.0-0.7) Basophils # (Auto) 0.0 x10^3/uL (0.0-0.2) 0.0 x10^3/uL (0.0-0.2) Prothrombin Time 13.9 SEC (11.7-14.0) Prothromb Time International Ratio 1.1 (0.8-1.1) Activated Partial Thromboplast Time 32 SEC (24-38) Sodium Level 143 mmol/L (136-145) 142 mmol/L (136-145) Potassium Level 3.9 mmol/L (3.5-5.1) 3.7 mmol/L (3.5-5.1) Chloride Level 106 mmol/L (98-107) 107 mmol/L (98-107) Carbon Dioxide Level 29 mmol/L (21-32) 29 mmol/L (21-32) Anion Gap 8 (6-14) 6 (6-14) Blood Urea Nitrogen 16 mg/dL (8-26) 15 mg/dL (8-26) Creatinine 1.1 mg/dL (0.7-1.3) 1.0 mg/dL (0.7-1.3) Estimated GFR (Cockcroft-Gault) 84.1 93.9 BUN/Creatinine Ratio 15 (6-20) Glucose Level 110 mg/dL (70-99) 90 mg/dL (70-99) Calcium Level 9.2 mg/dL (8.5-10.1) 9.0 mg/dL (8.5-10.1) Magnesium Level 1.9 mg/dL (1.8-2.4) Total Bilirubin 0.3 mg/dL (0.2-1.0) Aspartate Amino Transf (AST/SGOT) 20 U/L (15-37) Alanine Aminotransferase (ALT/SGPT) 30 U/L (16-63) Alkaline Phosphatase 74 U/L (46-116) Troponin I Quantitative < 0.017 ng/mL (0.000-0.055) < 0.017 ng/mL (0.000-0.055) 0.017 ng/mL (0.000-0.055) Total Protein 6.9 g/dL (6.4-8.2) Albumin 3.7 g/dL (3.4-5.0) Albumin/Globulin Ratio 1.2 (1.0-1.7) Thyroid Stimulating Hormone (TSH) 0.249 uIU/mL (0.358-3.74) Triglycerides Level 87 mg/dL (0-150) Cholesterol Level 115 mg/dL (0-200) LDL Cholesterol, Calculated 69 mg/dL (0-100) VLDL Cholesterol, Calculated 17 mg/dL (0-40) Non-HDL Cholesterol Calculated 86 mg/dL (0-129) HDL Cholesterol 29 mg/dL (40-60) Cholesterol/HDL Ratio 4.0 Urine Collection Type Unknown Urine Color Yellow Urine Clarity Clear Urine pH 6.0 Urine Specific Bradshaw 1.020 Urine Protein Negative mg/dL (NEG-TRACE) Urine Glucose (UA) Negative mg/dL (NEG) Urine Ketones (Stick) Negative mg/dL (NEG) Urine Blood Negative (NEG) Urine Nitrite Negative (NEG) Urine Bilirubin Negative (NEG) Urine Urobilinogen Dipstick 1.0 mg/dL (0.2 mg/dL) Urine Leukocyte Esterase Negative (NEG) Urine RBC 0 /HPF (0-2) Urine WBC 1-4 /HPF (0-4) Urine Squamous Epithelial Cells Occ /LPF Urine Bacteria 0 /HPF (0-FEW) Urine Mucus Mod /LPF Laboratory Tests Test 01/22/19 15:15 01/22/19 22:05 01/23/19 00:55 01/23/19 06:00 White Blood Count 5.3 x10^3/uL (4.0-11.0) 5.9 x10^3/uL (4.0-11.0) Red Blood Count 5.00 x10^6/uL (4.30-5.70) 4.75 x10^6/uL (4.30-5.70) Hemoglobin 14.2 g/dL (13.0-17.5) 13.4 g/dL (13.0-17.5) Hematocrit 43.3 % (39.0-53.0) 41.2 % (39.0-53.0) Mean Corpuscular Volume 87 fL (79-100) 87 fL (79-100) Mean Corpuscular Hemoglobin 28 pg (25-35) 28 pg (25-35) Mean Corpuscular Hemoglobin Concent 33 g/dL (31-37) 33 g/dL (31-37) Red Cell Distribution Width 15.2 % (11.5-14.5) 14.8 % (11.5-14.5) Platelet Count 227 x10^3/uL (140-400) 228 x10^3/uL (140-400) Neutrophils (%) (Auto) 45 % (31-73) 36 % (31-73) Lymphocytes (%) (Auto) 41 % (24-48) 50 % (24-48) Monocytes (%) (Auto) 11 % (0-9) 12 % (0-9) Eosinophils (%) (Auto) 3 % (0-3) 3 % (0-3) Basophils (%) (Auto) 1 % (0-3) 1 % (0-3) Neutrophils # (Auto) 2.4 x10^3uL (1.8-7.7) 2.1 x10^3uL (1.8-7.7) Lymphocytes # (Auto) 2.2 x10^3/uL (1.0-4.8) 2.9 x10^3/uL (1.0-4.8) Monocytes # (Auto) 0.6 x10^3/uL (0.0-1.1) 0.7 x10^3/uL (0.0-1.1) Eosinophils # (Auto) 0.1 x10^3/uL (0.0-0.7) 0.2 x10^3/uL (0.0-0.7) Basophils # (Auto) 0.0 x10^3/uL (0.0-0.2) 0.0 x10^3/uL (0.0-0.2) Prothrombin Time 13.9 SEC (11.7-14.0) Prothromb Time International Ratio 1.1 (0.8-1.1) Activated Partial Thromboplast Time 32 SEC (24-38) Sodium Level 143 mmol/L (136-145) 142 mmol/L (136-145) Potassium Level 3.9 mmol/L (3.5-5.1) 3.7 mmol/L (3.5-5.1) Chloride Level 106 mmol/L (98-107) 107 mmol/L (98-107) Carbon Dioxide Level 29 mmol/L (21-32) 29 mmol/L (21-32) Anion Gap 8 (6-14) 6 (6-14) Blood Urea Nitrogen 16 mg/dL (8-26) 15 mg/dL (8-26) Creatinine 1.1 mg/dL (0.7-1.3) 1.0 mg/dL (0.7-1.3) Estimated GFR (Cockcroft-Gault) 84.1 93.9 BUN/Creatinine Ratio 15 (6-20) Glucose Level 110 mg/dL (70-99) 90 mg/dL (70-99) Calcium Level 9.2 mg/dL (8.5-10.1) 9.0 mg/dL (8.5-10.1) Magnesium Level 1.9 mg/dL (1.8-2.4) Total Bilirubin 0.3 mg/dL (0.2-1.0) Aspartate Amino Transf (AST/SGOT) 20 U/L (15-37) Alanine Aminotransferase (ALT/SGPT) 30 U/L (16-63) Alkaline Phosphatase 74 U/L (46-116) Troponin I Quantitative < 0.017 ng/mL (0.000-0.055) < 0.017 ng/mL (0.000-0.055) 0.017 ng/mL (0.000-0.055) Total Protein 6.9 g/dL (6.4-8.2) Albumin 3.7 g/dL (3.4-5.0) Albumin/Globulin Ratio 1.2 (1.0-1.7) Thyroid Stimulating Hormone (TSH) 0.249 uIU/mL (0.358-3.74) Triglycerides Level 87 mg/dL (0-150) Cholesterol Level 115 mg/dL (0-200) LDL Cholesterol, Calculated 69 mg/dL (0-100) VLDL Cholesterol, Calculated 17 mg/dL (0-40) Non-HDL Cholesterol Calculated 86 mg/dL (0-129) HDL Cholesterol 29 mg/dL (40-60) Cholesterol/HDL Ratio 4.0 Urine Collection Type Unknown Urine Color Yellow Urine Clarity Clear Urine pH 6.0 Urine Specific Bradshaw 1.020 Urine Protein Negative mg/dL (NEG-TRACE) Urine Glucose (UA) Negative mg/dL (NEG) Urine Ketones (Stick) Negative mg/dL (NEG) Urine Blood Negative (NEG) Urine Nitrite Negative (NEG) Urine Bilirubin Negative (NEG) Urine Urobilinogen Dipstick 1.0 mg/dL (0.2 mg/dL) Urine Leukocyte Esterase Negative (NEG) Urine RBC 0 /HPF (0-2) Urine WBC 1-4 /HPF (0-4) Urine Squamous Epithelial Cells Occ /LPF Urine Bacteria 0 /HPF (0-FEW) Urine Mucus Mod /LPF Images Images Head CT without contrast. There is no acute or subacute extra-axial or intraparenchymal hemorrhage. There is no mass effect or midline shift. There is no hydrocephalus. There is subtle areas of hypodensity within the cerebral white, likely due to chronic small vessel disease. There is a large within the medial left frontal lobe with involvement of the left aspect of the genu of the corpus callosum. There is a chronic infarct within the left putamen and adjacent frontal white matter. There is associated ex vacuo dilatation of the frontal horn of the left lateral ventricle. There is new hypodensity within the posterior lateral left frontal lobe cortex and subcortical white matter. There is no midline shift. There is no hydrocephalus. There is a left lamina appreciable fracture. The orbits and mastoid air cells are otherwise unremarkable. No calvarial lesion is seen. IMPRESSION: 1. New region of hypodensity within the posterior lateral left frontal lobe cortex and subcortical white matter. This is likely an infarct of uncertain chronicity. MRI may be useful to assess chronicity. 2. Chronic infarcts within the anterior medial left frontal lobe with involvement of the corpus callosum and the left basal ganglia with involvement of the adjacent left frontal white matter. 3. Subtle areas of hypodensity within the cerebral white matter, likely due to chronic small vessel disease. Assessment/Plan Assessment/Plan Impression: Several prior strokes, new deficit is a left abducens palsy implying brainstem localization Recommendations: MRI of the brain LESLEE Castro cardiac workup, echocardiogram, consider transesophageal study, consider long- term monitoring, LINQ. Rehabilitation modalities Interview aspirin for now Check lipids Consider hypercoaguable workup as outpatient Obtain [facility] records Thank you for letting me help with the patient's care. SASCHA MELO MD January 23, 2019 10:05
[2019-01-23] MEDS: CETIRIZINE HCL 10 MG TABLET. PO SCH (10:31)
[2019-01-23] MEDS: CLOPIDOGREL BISULFATE 75 MG TABLET PO SCH (10:31)
[2019-01-23] MEDS: SERTRALINE 50 MG TABLET. PO SCH (10:32)
[2019-01-23] MEDS: DICYCLOMINE HCL 10 MG CAPSULE PO SCH ×4 (10:33→21:20)
[2019-01-23] MEDS: amLODIPine BESYLATE 10 MG TABLET PO SCH (10:33)
[2019-01-23] MEDS: LISINOPRIL 20 MG TABLET PO SCH (10:33)
[2019-01-23] MEDS: CARVEDILOL 3.125 MG TABLET. PO SCH ×2 (10:34→16:27)
[2019-01-23] MEDS: POLYETHYLENE GLYCOL 3350 17 GM PACKET. PO SCH (10:35)
[2019-01-23] MEDS: PANTOPRAZOLE 40 MG TABLET.DR. PO SCH (10:35)
[2019-01-23] MEDS: BACLOFEN 10 MG TABLET. PO SCH ×4 (10:35→21:20)
[2019-01-23] MEDS: ASPIRIN ENTERIC COATED 325 MG TABLET.DR. PO SCH (10:38)
[2019-01-23 11:18] VITALS: BP 162/112
--- NOTE | 2019-01-23 11:37 | RAD ---
CTA of the head and neck with contrast, 01/23/2019: HISTORY: Multiple CVAs Multidetector CT imaging was performed following an IV bolus injection of iodinated contrast material. Multiplanar reconstructions were produced including MIP images and 3-D volume reconstructions. No significant stenosis is seen at the origins of the cervicocephalic arteries from the aortic arch. There is mild calcific plaquing at the right carotid bifurcation without evidence of significant stenosis at its origin. The right internal carotid artery is tortuous with mild kinking of that vessel in the upper aspect of the neck. There is moderate calcific plaquing involving its cavernous segment without evidence of high-grade stenosis. The right anterior cerebral and middle cerebral arteries and their major branches show no definite abnormality. On the left, there is mild calcific plaquing at the carotid bifurcation with mild associated narrowing of the proximal internal carotid artery. The internal carotid artery in the upper neck is moderately tortuous with mild kinking. There is moderate calcific plaquing involving its cavernous segment without evidence of high-grade stenosis. The left anterior cerebral and middle cerebral arteries and their major branches are unremarkable. There is a patent posterior communicating artery is evident on the left. The right vertebral artery is patent. There is mild atherosclerotic plaquing of that vessel distally without evidence of high-grade stenosis. The left vertebral artery is also patent up through its junction with the basilar artery. The basilar artery shows no abnormality. The posterior cerebral arteries are unremarkable. IMPRESSION: 1. Mild atherosclerotic plaquing at both carotid bifurcations without evidence of high-grade stenosis. 2. Tortuosity and mild kinking of the distal internal carotid arteries in the upper neck. 3. Moderate calcific plaquing involving the cavernous segments of the distal internal carotid arteries without evidence of high-grade stenosis. 4. No major intracranial arterial stenosis or occlusion is identified. PQRS Compliance Statement: One or more of the following individualized dose reduction techniques were utilized for this examination: 1. Automated exposure control 2. Adjustment of the mA and/or kV according to patient size 3. Use of iterative reconstruction technique Electronically signed by: Bob Martines MD (01/23/2019 11:34 AM) [facility]
--- NOTE | 2019-01-23 12:02 | PDOC ---
PROGRESS NOTES Chief Complaint Chief Complaint Chest pain Blurred vision HTN GERD HLD Thigh myalgias CAD Tobacco abuse Obesity JOCY History of Present Illness History of Present Illness Patient seen and examined Patient complains of chest pain, pain was reproducible to palpation He continues to experience blurry vision EKG and ECHO showed no acute findings Vitals Vitals Vital Signs Date Time Temp Pulse Resp B/P (MAP) Pulse Ox O2 Delivery O2 Flow Rate FiO2 01/23/19 11:18 97.3 67 18 162/112 (129) 97 Room Air 97.3 Physical Exam General: Alert, Cooperative, No acute distress Heart: Regular rate, Normal S1 Lungs: Clear Abdomen: Normal bowel sounds, Soft, No tenderness, No hepatosplenomegaly, No masses Extremities: No clubbing, No cyanosis, No edema, Normal pulses, No tenderness/swelling Skin: No rashes, No breakdown, No significant lesion Labs LABS Laboratory Tests Test 01/22/19 15:15 01/22/19 22:05 01/23/19 00:55 01/23/19 06:00 White Blood Count 5.3 x10^3/uL (4.0-11.0) 5.9 x10^3/uL (4.0-11.0) Red Blood Count 5.00 x10^6/uL (4.30-5.70) 4.75 x10^6/uL (4.30-5.70) Hemoglobin 14.2 g/dL (13.0-17.5) 13.4 g/dL (13.0-17.5) Hematocrit 43.3 % (39.0-53.0) 41.2 % (39.0-53.0) Mean Corpuscular Volume 87 fL (79-100) 87 fL (79-100) Mean Corpuscular Hemoglobin 28 pg (25-35) 28 pg (25-35) Mean Corpuscular Hemoglobin Concent 33 g/dL (31-37) 33 g/dL (31-37) Red Cell Distribution Width 15.2 % (11.5-14.5) 14.8 % (11.5-14.5) Platelet Count 227 x10^3/uL (140-400) 228 x10^3/uL (140-400) Neutrophils (%) (Auto) 45 % (31-73) 36 % (31-73) Lymphocytes (%) (Auto) 41 % (24-48) 50 % (24-48) Monocytes (%) (Auto) 11 % (0-9) 12 % (0-9) Eosinophils (%) (Auto) 3 % (0-3) 3 % (0-3) Basophils (%) (Auto) 1 % (0-3) 1 % (0-3) Neutrophils # (Auto) 2.4 x10^3uL (1.8-7.7) 2.1 x10^3uL (1.8-7.7) Lymphocytes # (Auto) 2.2 x10^3/uL (1.0-4.8) 2.9 x10^3/uL (1.0-4.8) Monocytes # (Auto) 0.6 x10^3/uL (0.0-1.1) 0.7 x10^3/uL (0.0-1.1) Eosinophils # (Auto) 0.1 x10^3/uL (0.0-0.7) 0.2 x10^3/uL (0.0-0.7) Basophils # (Auto) 0.0 x10^3/uL (0.0-0.2) 0.0 x10^3/uL (0.0-0.2) Prothrombin Time 13.9 SEC (11.7-14.0) Prothromb Time International Ratio 1.1 (0.8-1.1) Activated Partial Thromboplast Time 32 SEC (24-38) Sodium Level 143 mmol/L (136-145) 142 mmol/L (136-145) Potassium Level 3.9 mmol/L (3.5-5.1) 3.7 mmol/L (3.5-5.1) Chloride Level 106 mmol/L (98-107) 107 mmol/L (98-107) Carbon Dioxide Level 29 mmol/L (21-32) 29 mmol/L (21-32) Anion Gap 8 (6-14) 6 (6-14) Blood Urea Nitrogen 16 mg/dL (8-26) 15 mg/dL (8-26) Creatinine 1.1 mg/dL (0.7-1.3) 1.0 mg/dL (0.7-1.3) Estimated GFR (Cockcroft-Gault) 84.1 93.9 BUN/Creatinine Ratio 15 (6-20) Glucose Level 110 mg/dL (70-99) 90 mg/dL (70-99) Calcium Level 9.2 mg/dL (8.5-10.1) 9.0 mg/dL (8.5-10.1) Magnesium Level 1.9 mg/dL (1.8-2.4) Total Bilirubin 0.3 mg/dL (0.2-1.0) Aspartate Amino Transf (AST/SGOT) 20 U/L (15-37) Alanine Aminotransferase (ALT/SGPT) 30 U/L (16-63) Alkaline Phosphatase 74 U/L (46-116) Troponin I Quantitative < 0.017 ng/mL (0.000-0.055) < 0.017 ng/mL (0.000-0.055) 0.017 ng/mL (0.000-0.055) Total Protein 6.9 g/dL (6.4-8.2) Albumin 3.7 g/dL (3.4-5.0) Albumin/Globulin Ratio 1.2 (1.0-1.7) Thyroid Stimulating Hormone (TSH) 0.249 uIU/mL (0.358-3.74) Triglycerides Level 87 mg/dL (0-150) Cholesterol Level 115 mg/dL (0-200) LDL Cholesterol, Calculated 69 mg/dL (0-100) VLDL Cholesterol, Calculated 17 mg/dL (0-40) Non-HDL Cholesterol Calculated 86 mg/dL (0-129) HDL Cholesterol 29 mg/dL (40-60) Cholesterol/HDL Ratio 4.0 Urine Collection Type Unknown Urine Color Yellow Urine Clarity Clear Urine pH 6.0 Urine Specific [place] 1.020 Urine Protein Negative mg/dL (NEG-TRACE) Urine Glucose (UA) Negative mg/dL (NEG) Urine Ketones (Stick) Negative mg/dL (NEG) Urine Blood Negative (NEG) Urine Nitrite Negative (NEG) Urine Bilirubin Negative (NEG) Urine Urobilinogen Dipstick 1.0 mg/dL (0.2 mg/dL) Urine Leukocyte Esterase Negative (NEG) Urine RBC 0 /HPF (0-2) Urine WBC 1-4 /HPF (0-4) Urine Squamous Epithelial Cells Occ /LPF Urine Bacteria 0 /HPF (0-FEW) Urine Mucus Mod /LPF Review of Systems Review of Systems Patient complains of blurry vision Patient complains of leg pain Assessment and Plan Assessmemt and Plan Assessment: Chest pain Blurred vision HTN GERD - PPI may be appropriate HLD Thigh myalgias CAD Obesity JOCY Plan: Await MRI results- per Neuro Cardiac monitoring Home meds Labs PT/OT DVT PPx: lovenox Neuro and Cardio following Comment Review of Relevant I have reviewed the following items navya (where applicable) has been applied. Labs Laboratory Tests Test 01/22/19 15:15 01/22/19 22:05 01/23/19 00:55 01/23/19 06:00 White Blood Count 5.3 x10^3/uL (4.0-11.0) 5.9 x10^3/uL (4.0-11.0) Red Blood Count 5.00 x10^6/uL (4.30-5.70) 4.75 x10^6/uL (4.30-5.70) Hemoglobin 14.2 g/dL (13.0-17.5) 13.4 g/dL (13.0-17.5) Hematocrit 43.3 % (39.0-53.0) 41.2 % (39.0-53.0) Mean Corpuscular Volume 87 fL (79-100) 87 fL (79-100) Mean Corpuscular Hemoglobin 28 pg (25-35) 28 pg (25-35) Mean Corpuscular Hemoglobin Concent 33 g/dL (31-37) 33 g/dL (31-37) Red Cell Distribution Width 15.2 % (11.5-14.5) 14.8 % (11.5-14.5) Platelet Count 227 x10^3/uL (140-400) 228 x10^3/uL (140-400) Neutrophils (%) (Auto) 45 % (31-73) 36 % (31-73) Lymphocytes (%) (Auto) 41 % (24-48) 50 % (24-48) Monocytes (%) (Auto) 11 % (0-9) 12 % (0-9) Eosinophils (%) (Auto) 3 % (0-3) 3 % (0-3) Basophils (%) (Auto) 1 % (0-3) 1 % (0-3) Neutrophils # (Auto) 2.4 x10^3uL (1.8-7.7) 2.1 x10^3uL (1.8-7.7) Lymphocytes # (Auto) 2.2 x10^3/uL (1.0-4.8) 2.9 x10^3/uL (1.0-4.8) Monocytes # (Auto) 0.6 x10^3/uL (0.0-1.1) 0.7 x10^3/uL (0.0-1.1) Eosinophils # (Auto) 0.1 x10^3/uL (0.0-0.7) 0.2 x10^3/uL (0.0-0.7) Basophils # (Auto) 0.0 x10^3/uL (0.0-0.2) 0.0 x10^3/uL (0.0-0.2) Prothrombin Time 13.9 SEC (11.7-14.0) Prothromb Time International Ratio 1.1 (0.8-1.1) Activated Partial Thromboplast Time 32 SEC (24-38) Sodium Level 143 mmol/L (136-145) 142 mmol/L (136-145) Potassium Level 3.9 mmol/L (3.5-5.1) 3.7 mmol/L (3.5-5.1) Chloride Level 106 mmol/L (98-107) 107 mmol/L (98-107) Carbon Dioxide Level 29 mmol/L (21-32) 29 mmol/L (21-32) Anion Gap 8 (6-14) 6 (6-14) Blood Urea Nitrogen 16 mg/dL (8-26) 15 mg/dL (8-26) Creatinine 1.1 mg/dL (0.7-1.3) 1.0 mg/dL (0.7-1.3) Estimated GFR (Cockcroft-Gault) 84.1 93.9 BUN/Creatinine Ratio 15 (6-20) Glucose Level 110 mg/dL (70-99) 90 mg/dL (70-99) Calcium Level 9.2 mg/dL (8.5-10.1) 9.0 mg/dL (8.5-10.1) Magnesium Level 1.9 mg/dL (1.8-2.4) Total Bilirubin 0.3 mg/dL (0.2-1.0) Aspartate Amino Transf (AST/SGOT) 20 U/L (15-37) Alanine Aminotransferase (ALT/SGPT) 30 U/L (16-63) Alkaline Phosphatase 74 U/L (46-116) Troponin I Quantitative < 0.017 ng/mL (0.000-0.055) < 0.017 ng/mL (0.000-0.055) 0.017 ng/mL (0.000-0.055) Total Protein 6.9 g/dL (6.4-8.2) Albumin 3.7 g/dL (3.4-5.0) Albumin/Globulin Ratio 1.2 (1.0-1.7) Thyroid Stimulating Hormone (TSH) 0.249 uIU/mL (0.358-3.74) Triglycerides Level 87 mg/dL (0-150) Cholesterol Level 115 mg/dL (0-200) LDL Cholesterol, Calculated 69 mg/dL (0-100) VLDL Cholesterol, Calculated 17 mg/dL (0-40) Non-HDL Cholesterol Calculated 86 mg/dL (0-129) HDL Cholesterol 29 mg/dL (40-60) Cholesterol/HDL Ratio 4.0 Urine Collection Type Unknown Urine Color Yellow Urine Clarity Clear Urine pH 6.0 Urine Specific [place] 1.020 Urine Protein Negative mg/dL (NEG-TRACE) Urine Glucose (UA) Negative mg/dL (NEG) Urine Ketones (Stick) Negative mg/dL (NEG) Urine Blood Negative (NEG) Urine Nitrite Negative (NEG) Urine Bilirubin Negative (NEG) Urine Urobilinogen Dipstick 1.0 mg/dL (0.2 mg/dL) Urine Leukocyte Esterase Negative (NEG) Urine RBC 0 /HPF (0-2) Urine WBC 1-4 /HPF (0-4) Urine Squamous Epithelial Cells Occ /LPF Urine Bacteria 0 /HPF (0-FEW) Urine Mucus Mod /LPF Laboratory Tests Test 01/22/19 15:15 01/22/19 22:05 01/23/19 00:55 01/23/19 06:00 White Blood Count 5.3 x10^3/uL (4.0-11.0) 5.9 x10^3/uL (4.0-11.0) Red Blood Count 5.00 x10^6/uL (4.30-5.70) 4.75 x10^6/uL (4.30-5.70) Hemoglobin 14.2 g/dL (13.0-17.5) 13.4 g/dL (13.0-17.5) Hematocrit 43.3 % (39.0-53.0) 41.2 % (39.0-53.0) Mean Corpuscular Volume 87 fL (79-100) 87 fL (79-100) Mean Corpuscular Hemoglobin 28 pg (25-35) 28 pg (25-35) Mean Corpuscular Hemoglobin Concent 33 g/dL (31-37) 33 g/dL (31-37) Red Cell Distribution Width 15.2 % (11.5-14.5) 14.8 % (11.5-14.5) Platelet Count 227 x10^3/uL (140-400) 228 x10^3/uL (140-400) Neutrophils (%) (Auto) 45 % (31-73) 36 % (31-73) Lymphocytes (%) (Auto) 41 % (24-48) 50 % (24-48) Monocytes (%) (Auto) 11 % (0-9) 12 % (0-9) Eosinophils (%) (Auto) 3 % (0-3) 3 % (0-3) Basophils (%) (Auto) 1 % (0-3) 1 % (0-3) Neutrophils # (Auto) 2.4 x10^3uL (1.8-7.7) 2.1 x10^3uL (1.8-7.7) Lymphocytes # (Auto) 2.2 x10^3/uL (1.0-4.8) 2.9 x10^3/uL (1.0-4.8) Monocytes # (Auto) 0.6 x10^3/uL (0.0-1.1) 0.7 x10^3/uL (0.0-1.1) Eosinophils # (Auto) 0.1 x10^3/uL (0.0-0.7) 0.2 x10^3/uL (0.0-0.7) Basophils # (Auto) 0.0 x10^3/uL (0.0-0.2) 0.0 x10^3/uL (0.0-0.2) Prothrombin Time 13.9 SEC (11.7-14.0) Prothromb Time International Ratio 1.1 (0.8-1.1) Activated Partial Thromboplast Time 32 SEC (24-38) Sodium Level 143 mmol/L (136-145) 142 mmol/L (136-145) Potassium Level 3.9 mmol/L (3.5-5.1) 3.7 mmol/L (3.5-5.1) Chloride Level 106 mmol/L (98-107) 107 mmol/L (98-107) Carbon Dioxide Level 29 mmol/L (21-32) 29 mmol/L (21-32) Anion Gap 8 (6-14) 6 (6-14) Blood Urea Nitrogen 16 mg/dL (8-26) 15 mg/dL (8-26) Creatinine 1.1 mg/dL (0.7-1.3) 1.0 mg/dL (0.7-1.3) Estimated GFR (Cockcroft-Gault) 84.1 93.9 BUN/Creatinine Ratio 15 (6-20) Glucose Level 110 mg/dL (70-99) 90 mg/dL (70-99) Calcium Level 9.2 mg/dL (8.5-10.1) 9.0 mg/dL (8.5-10.1) Magnesium Level 1.9 mg/dL (1.8-2.4) Total Bilirubin 0.3 mg/dL (0.2-1.0) Aspartate Amino Transf (AST/SGOT) 20 U/L (15-37) Alanine Aminotransferase (ALT/SGPT) 30 U/L (16-63) Alkaline Phosphatase 74 U/L (46-116) Troponin I Quantitative < 0.017 ng/mL (0.000-0.055) < 0.017 ng/mL (0.000-0.055) 0.017 ng/mL (0.000-0.055) Total Protein 6.9 g/dL (6.4-8.2) Albumin 3.7 g/dL (3.4-5.0) Albumin/Globulin Ratio 1.2 (1.0-1.7) Thyroid Stimulating Hormone (TSH) 0.249 uIU/mL (0.358-3.74) Triglycerides Level 87 mg/dL (0-150) Cholesterol Level 115 mg/dL (0-200) LDL Cholesterol, Calculated 69 mg/dL (0-100) VLDL Cholesterol, Calculated 17 mg/dL (0-40) Non-HDL Cholesterol Calculated 86 mg/dL (0-129) HDL Cholesterol 29 mg/dL (40-60) Cholesterol/HDL Ratio 4.0 Urine Collection Type Unknown Urine Color Yellow Urine Clarity Clear Urine pH 6.0 Urine Specific [place] 1.020 Urine Protein Negative mg/dL (NEG-TRACE) Urine Glucose (UA) Negative mg/dL (NEG) Urine Ketones (Stick) Negative mg/dL (NEG) Urine Blood Negative (NEG) Urine Nitrite Negative (NEG) Urine Bilirubin Negative (NEG) Urine Urobilinogen Dipstick 1.0 mg/dL (0.2 mg/dL) Urine Leukocyte Esterase Negative (NEG) Urine RBC 0 /HPF (0-2) Urine WBC 1-4 /HPF (0-4) Urine Squamous Epithelial Cells Occ /LPF Urine Bacteria 0 /HPF (0-FEW) Urine Mucus Mod /LPF Medications Current Medications Fentanyl Citrate (Fentanyl 2ml Vial) 50 mcg 1X ONCE IV Last administered on 01/22/19at 16:37; Start 01/22/19 at 16:30; Stop 01/22/19 at 16:31; Status DC Amlodipine Besylate (Norvasc) 10 mg DAILY PO Last administered on 01/23/19at 10:33; Start 01/23/19 at 09:00 Aspirin (Ecotrin) 325 mg DAILYWBKFT PO ; Start 01/23/19 at 08:00; Stop 01/23/19 at 08:00; Status DC Carvedilol (Coreg) 3.125 mg BIDWMEALS PO Last administered on 01/23/19at 10:34; Start 01/23/19 at 08:00 Furosemide (Lasix) 20 mg DAILY PO ; Start 01/23/19 at 09:00; Stop 01/23/19 at 09:00; Status DC Acetaminophen/ Hydrocodone Bitart (Lortab 5/325) 1 tab PRN Q6HRS PRN PO PAIN Last administered on 01/23/19at 06:43; Start 01/22/19 at 19:45 Lisinopril (Prinivil) 20 mg DAILY PO Last administered on 01/23/19 10:33; Start 01/23/19 at 09:00 Nitroglycerin (Nitrostat) 0.4 mg PRN Q5MIN PRN SL CHEST PAIN; Start 01/22/19 at 19:45; Stop 01/22/19 at 22:16; Status DC Ondansetron HCl (Zofran Odt) 4 mg PRN BID PRN PO NAUSEA/VOMITING; Start 01/22/19 at 19:45 Dicyclomine HCl (Bentyl) 20 mg QID PO Last administered on 01/23/19 10:33; Start 01/22/19 at 21:00 Cetirizine HCl (ZyrTEC) 10 mg DAILY PO Last administered on 01/23/19 10:31; Start 01/23/19 at 09:00 Simvastatin (Zocor) 20 mg HS PO Last administered on 01/22/19 22:32; Start 01/22/19 at 21:00 Enoxaparin Sodium (Lovenox 40mg Syringe) 40 mg Q24H SQ Last administered on 01/22/19at 22:33; Start 01/22/19 at 20:00 Acetaminophen (Tylenol) 325 mg PRN Q6HRS PRN PO PAIN; Start 01/22/19 at 22:00; Stop 01/23/19 at 09:02; Status DC Amlodipine Besylate (Norvasc) 10 mg DAILY PO ; Start 01/23/19 at 09:00; Stop 01/23/19 at 09:00; Status DC Aspirin (Children'S Aspirin) 81 mg DAILYWBKFT PO ; Start 01/23/19 at 08:00; Status Cancel Azelastine HCl (Astelin) 2 spray PRN BID PRN NS ALLERGIES; Start 01/22/19 at 22:00 Carvedilol (Coreg) 12.5 mg BIDWMEALS PO ; Start 01/23/19 at 08:00; Status Cancel Cetirizine HCl (ZyrTEC) 10 mg DAILY PO ; Start 01/23/19 at 09:00; Status Cancel Clopidogrel Bisulfate (Plavix) 75 mg DAILY PO Last administered on 01/23/19 10:31; Start 01/23/19 at 09:00 Diclofenac Sodium (Voltaren) 1 eric QID TP ; Start 01/23/19 at 09:00 Guaifenesin (Mucinex) 600 mg BID PO Last administered on 01/23/19at 10:31; Start 01/23/19 at 09:00 Acetaminophen/ Hydrocodone Bitart (Lortab 5/325) 1 tab PRN BID PRN PO PAIN; Start 01/22/19 at 22:00; Status Cancel Lisinopril (Prinivil) 40 mg DAILY PO ; Start 01/23/19 at 09:00; Stop 01/23/19 at 09:00; Status DC Nitroglycerin (Nitrostat) 0.4 mg PRN Q5MIN PRN SL CHEST PAIN; Start 01/22/19 at 22:00 Sertraline HCl (Zoloft) 50 mg DAILY PO Last administered on 01/23/19at 10:32; Start 01/23/19 at 09:00 Baclofen (Lioresal) 20 mg QID PO Last administered on 01/23/19at 10:35; Start 01/23/19 at 09:00 Artificial Tears (Artificial Tears) 1 drop QID OU ; Start 01/23/19 at 09:00 Fluticasone Propionate (Flonase) 2 spray DAILY NS Last administered on 01/23/19at 09:21; Start 01/23/19 at 09:00 Ketotifen Fumarate (Zaditor) 1 drop BID OU ; Start 01/23/19 at 09:00 Mirtazapine (Remeron) 7.5 mg HS PO ; Start 01/22/19 at 23:00 Pantoprazole Sodium (Protonix) 20 mg DAILYAC PO Last administered on 01/23/19at 10:35; Start 01/23/19 at 07:30 Polyethylene Glycol (miraLAX PACKET) 17 gm DAILY PO Last administered on 01/23/19at 10:35; Start 01/23/19 at 09:00 Atorvastatin Calcium (Lipitor) 80 mg HS PO ; Start 01/22/19 at 23:00 Sennosides (Senna) 17.2 mg PRN BID PRN PO CONSTIPATION; Start 01/22/19 at 22:00 Acetaminophen (Tylenol) 650 mg PRN Q6HRS PRN PO TEMP > 100.4F; Start 01/23/19 at 09:00 Acetaminophen (Tylenol Supp) 650 mg PRN Q4HRS PRN VT TEMP > 100.4F; Start 01/23/19 at 09:00 Aspirin (Ecotrin) 325 mg DAILYWBKFT PO Last administered on 01/23/19at 10:38; Start 01/23/19 at 09:30 Iohexol (Omnipaque 300 Mg/ml) 75 ml 1X ONCE IV ; Start 01/23/19 at 09:15; Stop 01/23/19 at 09:16; Status DC Active Scripts Active Zofran Odt (Ondansetron) 4 Mg Tab.rapdis 4 Mg PO BID PRN Levsin-Sl (Hyoscyamine Sulfate) 0.125 Mg Tab.subl 1-2 Tab SL PRN Q4HRS Dicyclomine Hcl 20 Mg Tablet 1 Tab PO QID Azithromycin Tablet (Azithromycin) 250 Mg Tablet 250 Mg PO DAILY 4 Days Prednisone 50 Mg Tablet 1 Tab PO DAILY Vian 5-325 Tablet (Acetaminophen/Hydrocodone Bitart) 1 Each Tablet 1-2 Each PO PRN Q6HRS PRN as needed for pain Aspirin Ec (Aspirin) 325 Mg Tablet. 325 Mg PO DAILYWBKFT 30 Days Carvedilol (Carvedilol) 3.125 Mg Tablet 3.125 Mg PO BIDWMEALS 30 Days Vian 5-325 Tablet (Acetaminophen/Hydrocodone Bitart) 1 Each Tablet 1 Tab PO PRN Q6HRS PRN Reported Zaditor (Ketotifen Fumarate) 5 Ml Drops 1 Drop EACHEYE BID Zantac (Ranitidine Hcl) 150 Mg Tablet 150 Mg PO BID Zoloft (Sertraline Hcl) 50 Mg Tablet 50 Mg PO DAILY MDD 1.5 tablet daily Zyrtec (Cetirizine Hcl) 10 Mg Tablet 10 Mg PO DAILY Voltaren (Diclofenac Sodium) 100 Gm Gel..gram. 1 Gm TP QID Senokot (Sennosides) 8.6 Mg Tablet 2 Tab PO PRN BID MDD 8.6-50 Remeron (Mirtazapine) 15 Mg Tablet 7.5 Mg PO HS Protonix (Pantoprazole Sodium) 20 Mg Tablet. 20 Mg PO DAILY Clopidogrel (Clopidogrel Bisulfate) 75 Mg Tablet 75 Mg PO DAILY Norvasc (Amlodipine Besylate) 10 Mg Tablet 10 Mg PO DAILY Vian 5-325 Tablet (Acetaminophen/Hydrocodone Bitart) 1 Each Tablet 1 Tab PO BID PRN Nitrostat (Nitroglycerin) 0.4 Mg Tab.subl 0.4 Mg SL PRN Q5MIN PRN Mucinex (Guaifenesin) 600 Mg Tablet.er 600 Mg PO BID Miralax (Polyethylene Glycol 3350) 17 Gm Powd.pack 1 Pkt PO DAILY Lisinopril 40 Mg Tablet 40 Mg PO DAILY Lasix (Furosemide) 20 Mg Tablet 20 Mg PO DAILY Flonase Allergy Relief (Fluticasone Propionate) 9.9 Ml [place].susp 2 Sprays NS DAILY Refresh Optive Eye Drops (Carboxymethylcellulos/Glycerin) 15 Ml Drops 1 Drop EACHEYE QID Crestor (Rosuvastatin Calcium) 40 Mg Tablet 40 Mg PO HS Coreg (Carvedilol) 12.5 Mg Tablet 12.5 Mg PO BIDWMEALS Baclofen 20 Mg Tablet 20 Mg PO QID Azelastine Hcl 137 Mcg/0.137 Ml [place].pump 137 Mcg NS BID PRN Aspirin 81 Mg Tab.chew 81 Mg PO DAILY Tylenol (Acetaminophen) 325 Mg Tablet 325 Mg PO PRN Q6HRS PRN Claritin (Loratadine) 10 Mg Tablet 1 Tab PO DAILY Lisinopril 20 Mg Tablet 1 Tab PO DAILY Simvastatin 20 Mg Tablet 1 Tab PO QHS Amlodipine Besylate 10 Mg Tablet 10 Mg PO DAILY NITROGLYCERIN SubLingual (Nitroglycerin) 0.4 Mg Tab.subl 0.4 Mg SL PRN Q5MIN PRN Furosemide 20 Mg Tablet 1 Tab PO DAILY Vitals/I & O Vital Sign - Last 24 Hours 01/22/19 01/22/19 01/22/19 01/22/19 15:18 16:30 16:37 17:07 Temp 98.4 98.4 Pulse 54 52 Resp 18 18 14 18 B/P (MAP) 115/80 (92) 122/72 (89) Pulse Ox 96 01/22/19 01/22/19 01/22/19 01/22/19 17:25 17:57 19:00 22:50 Temp 97.8 98.3 97.9 97.8 98.3 97.9 Pulse 50 61 58 51 Resp 18 16 17 18 B/P (MAP) 115/79 (91) 129/89 (102) 137/96 (110) 140/87 (104) Pulse Ox 95 95 91 95 O2 Delivery Room Air Room Air Room Air 01/23/19 01/23/19 01/23/19 01/23/19 02:44 06:43 07:00 08:00 Temp 98.0 97.7 98.0 97.7 Pulse 46 53 Resp 18 16 B/P (MAP) 130/88 (102) 136/92 (107) Pulse Ox 90 92 O2 Delivery Room Air Room Air Room Air Room Air 01/23/19 01/23/19 01/23/19 01/23/19 08:07 10:33 10:33 10:34 Pulse 53 53 60 Resp 14 B/P (MAP) 136/92 136/92 136/92 Pulse Ox 95 O2 Delivery Room Air 01/23/19 11:18 Temp 97.3 97.3 Pulse 67 Resp 18 B/P (MAP) 162/112 (129) Pulse Ox 97 O2 Delivery Room Air Intake and Output 01/22/19 01/22/19 01/23/19 15:00 23:00 07:00 Output Total 200 ml 700 ml Balance -200 ml -700 ml IVANNA CRUZ III DO January 23, 2019 12:02
--- NOTE | 2019-01-23 12:35 | NUR ---
SS following up with discharge planning. SS received notification that pt was from [facility], ; fax [phone]. SS contacted [facility] to verify pt's previous placement. 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 [facility] reported that pt is able to return when medically stable for discharge.
[2019-01-23 15:19] VITALS: BP 142/95
--- NOTE | 2019-01-23 16:09 | RAD ---
EXAMINATION: Magnetic resonance imaging (MRI) of the brain and brainstem without contrast 01/23/2019 8:56 AM HISTORY: Blurred vision with prior CVAs. Weakness and speech difficulty. TECHNIQUE: Multiplanar multi-weighted MRI of the brain and brainstem was performed without intravenous contrast using the general brain protocol. COMPARISON: CT head January 22, 2019 FINDINGS: The scalp and calvarium are normal. The superior sagittal sinus demonstrates normal venous flow. The corpus callosum is normal in shape and signal intensity. The posterior fossa is unremarkable. The pituitary and sella are normal. The brainstem and craniocervical junction are unremarkable. There is a remote infarct involving the left [place] radiata extending into the left basal ganglia. There is small territory encephalomalacia involving the left parietal lobe and posterior frontal lobe from prior infarct. There are T2/FLAIR signal hyperintense foci in the periventricular and subcortical white matter most suggestive of mild chronic small vessel ischemic changes. Diffusion weighted images reveal no hyperintensities to suggest acute cerebral infarction. Susceptibility artifact is identified involving the remote infarct in the left basal ganglia compatible with a prior microhemorrhage. The ventricles are normal in size and position without evidence of hydrocephalus. The paranasal sinuses are normal. The visualized portions of the mastoids are unremarkable. The orbits appear normal. Normal flow voids are demonstrated in the carotid arteries and basilar artery. IMPRESSION: 1. No evidence for acute or subacute ischemia. 2. Remote infarcts are identified involving the left posterior parietotemporal lobes, posterior frontal lobe, and left phoenix radiata. Left phoenix radiata remote infarct has associated hemosiderin deposition from prior microhemorrhage. 3. There are T2/FLAIR signal hyperintense foci in the periventricular and subcortical white matter most suggestive of mild chronic small vessel ischemic changes. Electronically signed by: Eloina Jeter MD (01/23/2019 4:06 PM) [id number]
--- NOTE | 2019-01-23 16:15 | CARD ---
MR#: [id number] Date of Study: 01/23/2019 Ordering Physician: EBONY QUIGLEY, Referring Physician: STEPHANIE ESCALANTE, Tech: Tatiana Allan [facility] APPROVED REPORT EXAM: Two-dimensional and M-mode echocardiogram with Doppler and color Doppler. Other Information Quality : Fair INDICATION Chest Pain 2D DIMENSIONS RVDd4.1 (2.9-3.5cm)Left Atrium(2D)4.6 (1.6-4.0cm) IVSd1.0 (0.7-1.1cm)Aortic Root(2D)3.9 (2.0-3.7cm) LVDd6.3 (3.9-5.9cm)LVOT Diameter2.3 (1.8-2.4cm) PWd1.3 (0.7-1.1cm)LVDs5.1 (2.5-4.0cm) FS (%) 18.7 %SV75.7 ml LVEF(%)60.0 (>50%) Aortic Valve AoV Peak Sergio.98.7cm/sAoV VTI15.8cm AO Peak GR.3.9mmHgLVOT VTI 12.40cm AO Mean GR.2mmHgAVA (VTI)3.30cm2 TDI Lateral E' P. V5.47cm/sMedial E' P. V5.86cm/s Pulmonary Vein S1 Jopdkzsv08.8cm/sS2 Ikikyynh82.22cm/s D2 Unepmppo74.2cm/s LEFT VENTRICLE The Left Ventricle is mildly dilated. There is normal left ventricular wall thickness. The left ventr icular systolic function is normal and the ejection fraction is within normal range. The Ejection Fra ction is 55-60%. There is normal LV segmental wall motion. Tissue Doppler imaging reveals moderate le ft ventricular diastolic dysfunction. RIGHT VENTRICLE The right ventricle is mildly dilated. The right ventricular systolic function is normal. ATRIA The left atrium is mildly dilated. The right atrium is mildly dilated. The interatrial septum is inta ct with no evidence for an atrial septal defect or patent foramen ovale as noted on 2-D or Doppler im aging. AORTIC VALVE The aortic valve is calcified and not well visualized. Doppler and Color Flow revealed no significant aortic regurgitation. There is no significant aortic valvular stenosis. MITRAL VALVE The mitral valve is calcified but opens well. There is no evidence of mitral valve prolapse. There is no mitral valve stenosis. Doppler and Color Flow revealed no mitral valve regurgitation noted. TRICUSPID VALVE The tricuspid valve is normal in structure and function. Doppler and Color Flow revealed no tricuspid valve regurgitation noted. There is no tricuspid valve stenosis. PULMONIC VALVE The pulmonic valve is not well visualized. Doppler and Color Flow revealed no pulmonic valvular regur gitation. There is no pulmonic valvular stenosis. GREAT VESSELS The aortic root is normal in size. The ascending aorta is moderately dilated at 4.0 cm. The IVC is di lated and collapses <50% with inspiration. PERICARDIAL EFFUSION There is no evidence of significant pericardial effusion. Critical Notification Critical Value: No <Conclusion> The left ventricular systolic function is normal and the ejection fraction is within normal range. Th e Ejection Fraction is 55-60%. There is normal LV segmental wall motion. The ascending aorta is moderately dilated at 4.0 cm. The IVC is dilated and collapses <50% with inspiration. Signed by : Viktor Veloz, Electronically Approved : 01/23/2019 16:15:20
[2019-01-23 19:43] VITALS: BP 126/83
[2019-01-23] MEDS: ENOXAPARIN 40 MG/0.4 ML SYRINGE. SQ SCH (21:18)
[2019-01-23] MEDS: ATORVASTATIN CALCIUM 40 MG TABLET. PO SCH (21:20)
[2019-01-23] MEDS: MIRTAZAPINE 7.5 MG TABLET. PO SCH (21:20)
[2019-01-23] MEDS: SIMVASTATIN 20 MG TABLET PO SCH (21:22)
[2019-01-23 23:22] VITALS: BP 113/65
[2019-01-24 01:09] LABS: HEMOGLOBIN A1C 5.9 % (4.8-5.6)
[2019-01-24 03:20] VITALS: BP 135/80
[2019-01-24 04:14] LABS: BASO % 1 % (0-3); EOS # 0.1 x10^3/uL (0.0-0.7); EOS % 2 % (0-3); HEMATOCRIT 42.5 % (39.0-53.0); HEMOGLOBIN 13.9 g/dL (13.0-17.5); LYMPH # 2.7 x10^3/uL (1.0-4.8); LYMPH % 44 % (24-48); MEAN CORPUSCULAR HEMOGLOBIN 28 pg (25-35); MEAN CORPUSCULAR HGB CONC 33 g/dL (31-37); MEAN CORPUSCULAR VOLUME 87 fL (79-100); MONO # 0.7 x10^3/uL (0.0-1.1); MONO % 12 % (0-9); NEUT # 2.5 x10^3uL (1.8-7.7); NEUT % 41 % (31-73); PLATELET COUNT 215 x10^3/uL (140-400); RED BLOOD COUNT 4.88 x10^6/uL (4.30-5.70); RED CELL DISTRIBUTION WIDTH 14.4 % (11.5-14.5); WHITE BLOOD COUNT 6.1 x10^3/uL (4.0-11.0)
[2019-01-24 04:29] LABS: CALCIUM 9.1 mg/dL (8.5-10.1); CREATININE 1.1 mg/dL (0.7-1.3); GFR 84.1; POTASSIUM 3.9 mmol/L (3.5-5.1)
[2019-01-24 07:00] VITALS: BP 138/81
[2019-01-24] MEDS: PANTOPRAZOLE 40 MG TABLET.DR. PO SCH (07:30)
[2019-01-24] MEDS: ASPIRIN ENTERIC COATED 325 MG TABLET.DR. PO SCH (07:34)
[2019-01-24] MEDS: POLYETHYLENE GLYCOL 3350 17 GM PACKET. PO SCH (07:34)
[2019-01-24] MEDS: DICYCLOMINE HCL 10 MG CAPSULE PO SCH ×3 (07:34→15:58)
[2019-01-24] MEDS: CARVEDILOL 3.125 MG TABLET. PO SCH ×2 (07:34→15:58)
[2019-01-24] MEDS: BACLOFEN 10 MG TABLET. PO SCH ×3 (07:34→15:57)
[2019-01-24] MEDS: amLODIPine BESYLATE 10 MG TABLET PO SCH (07:35)
[2019-01-24] MEDS: CETIRIZINE HCL 10 MG TABLET. PO SCH (07:35)
[2019-01-24] MEDS: CLOPIDOGREL BISULFATE 75 MG TABLET PO SCH (07:35)
[2019-01-24] MEDS: LISINOPRIL 20 MG TABLET PO SCH (07:35)
[2019-01-24] MEDS: SERTRALINE 50 MG TABLET. PO SCH (07:35)
[2019-01-24] MEDS: HYDROcodone/APAP 5/325MG 1 TAB TABLET PO PRN ×2 (08:16→15:58)
[2019-01-24] MEDS: FLUTICASONE 50MCG/NASAL SPRAY 16GM BOTTLE. NS SCH (08:16)
[2019-01-24] MEDS: DICLOFENAC SODIUM 1% TOPICAL GEL 100GM TUBE. TP SCH ×3 (08:16→15:58)
[2019-01-24] MEDS: POLYVINYL ALCOHOL 1.4% OPHTH SOLUTION 15ML BOTTLE. OU SCH ×3 (08:16→15:58)
[2019-01-24] MEDS: KETOTIFEN FUMARATE 0.025% OPHTH SOLUTION BOTTLE. OU SCH (08:17)
--- NOTE | 2019-01-24 09:17 | NUR ---
IP: Pt is mrsa screen + requiring contact precautions.
--- NOTE | 2019-01-24 10:04 | PDOC ---
PROGRESS NOTES Chief Complaint Chief Complaint Chest pain Blurred vision HTN GERD HLD Thigh myalgias CAD Tobacco abuse Obesity JOCY History of Present Illness History of Present Illness Patient seen and examined Patient states feeling better today Complains of mucous that he doesn't feel he can cough out Patient complains of chest pain, pain was reproducible to palpation Discussed with Neurologist and Nurse- Pt has CN Palsy EKG and ECHO showed no acute findings MRI no evidence of stroke Vitals Vitals Vital Signs Date Time Temp Pulse Resp B/P (MAP) Pulse Ox O2 Delivery O2 Flow Rate FiO2 01/24/19 09:19 Room Air 01/24/19 07:00 98.0 54 18 138/81 (100) 93 98.0 Physical Exam General: Alert, Cooperative, No acute distress Heart: Regular rate, Normal S1 Lungs: Clear Abdomen: Normal bowel sounds, Soft, No tenderness, No hepatosplenomegaly, No masses Extremities: No clubbing, No cyanosis, No edema, Normal pulses, No tenderness/swelling Skin: No rashes, No breakdown, No significant lesion Labs LABS Laboratory Tests Test 01/24/19 03:50 White Blood Count 6.1 x10^3/uL (4.0-11.0) Red Blood Count 4.88 x10^6/uL (4.30-5.70) Hemoglobin 13.9 g/dL (13.0-17.5) Hematocrit 42.5 % (39.0-53.0) Mean Corpuscular Volume 87 fL (79-100) Mean Corpuscular Hemoglobin 28 pg (25-35) Mean Corpuscular Hemoglobin Concent 33 g/dL (31-37) Red Cell Distribution Width 14.4 % (11.5-14.5) Platelet Count 215 x10^3/uL (140-400) Neutrophils (%) (Auto) 41 % (31-73) Lymphocytes (%) (Auto) 44 % (24-48) Monocytes (%) (Auto) 12 % (0-9) Eosinophils (%) (Auto) 2 % (0-3) Basophils (%) (Auto) 1 % (0-3) Neutrophils # (Auto) 2.5 x10^3uL (1.8-7.7) Lymphocytes # (Auto) 2.7 x10^3/uL (1.0-4.8) Monocytes # (Auto) 0.7 x10^3/uL (0.0-1.1) Eosinophils # (Auto) 0.1 x10^3/uL (0.0-0.7) Basophils # (Auto) 0.0 x10^3/uL (0.0-0.2) Erythrocyte Sedimentation Rate 5 (0-15) Sodium Level 143 mmol/L (136-145) Potassium Level 3.9 mmol/L (3.5-5.1) Chloride Level 107 mmol/L (98-107) Carbon Dioxide Level 28 mmol/L (21-32) Anion Gap 8 (6-14) Blood Urea Nitrogen 16 mg/dL (8-26) Creatinine 1.1 mg/dL (0.7-1.3) Estimated GFR (Cockcroft-Gault) 84.1 Glucose Level 102 mg/dL (70-99) Calcium Level 9.1 mg/dL (8.5-10.1) Review of Systems Review of Systems Patient complains of chest congestion Patient complains of blurry vision Assessment and Plan Assessmemt and Plan Problems Medical Problems: (1) Chest pain Status: Acute (2) Vision changes Status: Acute Assessment: Chest pain Blurred vision HTN GERD HLD Thigh myalgias CAD Obesity JOCY Plan: Await GILDA results Cardiac monitoring Home meds Labs PT/OT DVT PPx: lovenox Neuro and Cardio following Discharge when okay with specialists Comment Review of Relevant I have reviewed the following items navya (where applicable) has been applied. Labs Laboratory Tests Test 01/22/19 15:15 01/22/19 22:05 01/23/19 00:55 01/23/19 03:00 White Blood Count 5.3 x10^3/uL (4.0-11.0) 5.9 x10^3/uL (4.0-11.0) Red Blood Count 5.00 x10^6/uL (4.30-5.70) 4.75 x10^6/uL (4.30-5.70) Hemoglobin 14.2 g/dL (13.0-17.5) 13.4 g/dL (13.0-17.5) Hematocrit 43.3 % (39.0-53.0) 41.2 % (39.0-53.0) Mean Corpuscular Volume 87 fL (79-100) 87 fL (79-100) Mean Corpuscular Hemoglobin 28 pg (25-35) 28 pg (25-35) Mean Corpuscular Hemoglobin Concent 33 g/dL (31-37) 33 g/dL (31-37) Red Cell Distribution Width 15.2 % (11.5-14.5) 14.8 % (11.5-14.5) Platelet Count 227 x10^3/uL (140-400) 228 x10^3/uL (140-400) Neutrophils (%) (Auto) 45 % (31-73) 36 % (31-73) Lymphocytes (%) (Auto) 41 % (24-48) 50 % (24-48) Monocytes (%) (Auto) 11 % (0-9) 12 % (0-9) Eosinophils (%) (Auto) 3 % (0-3) 3 % (0-3) Basophils (%) (Auto) 1 % (0-3) 1 % (0-3) Neutrophils # (Auto) 2.4 x10^3uL (1.8-7.7) 2.1 x10^3uL (1.8-7.7) Lymphocytes # (Auto) 2.2 x10^3/uL (1.0-4.8) 2.9 x10^3/uL (1.0-4.8) Monocytes # (Auto) 0.6 x10^3/uL (0.0-1.1) 0.7 x10^3/uL (0.0-1.1) Eosinophils # (Auto) 0.1 x10^3/uL (0.0-0.7) 0.2 x10^3/uL (0.0-0.7) Basophils # (Auto) 0.0 x10^3/uL (0.0-0.2) 0.0 x10^3/uL (0.0-0.2) Prothrombin Time 13.9 SEC (11.7-14.0) Prothromb Time International Ratio 1.1 (0.8-1.1) Activated Partial Thromboplast Time 32 SEC (24-38) Sodium Level 143 mmol/L (136-145) 142 mmol/L (136-145) Potassium Level 3.9 mmol/L (3.5-5.1) 3.7 mmol/L (3.5-5.1) Chloride Level 106 mmol/L (98-107) 107 mmol/L (98-107) Carbon Dioxide Level 29 mmol/L (21-32) 29 mmol/L (21-32) Anion Gap 8 (6-14) 6 (6-14) Blood Urea Nitrogen 16 mg/dL (8-26) 15 mg/dL (8-26) Creatinine 1.1 mg/dL (0.7-1.3) 1.0 mg/dL (0.7-1.3) Estimated GFR (Cockcroft-Gault) 84.1 93.9 BUN/Creatinine Ratio 15 (6-20) Glucose Level 110 mg/dL (70-99) 90 mg/dL (70-99) Hemoglobin A1c 5.9 % (4.8-5.6) Calcium Level 9.2 mg/dL (8.5-10.1) 9.0 mg/dL (8.5-10.1) Magnesium Level 1.9 mg/dL (1.8-2.4) Total Bilirubin 0.3 mg/dL (0.2-1.0) Aspartate Amino Transf (AST/SGOT) 20 U/L (15-37) Alanine Aminotransferase (ALT/SGPT) 30 U/L (16-63) Alkaline Phosphatase 74 U/L (46-116) Troponin I Quantitative < 0.017 ng/mL (0.000-0.055) < 0.017 ng/mL (0.000-0.055) 0.017 ng/mL (0.000-0.055) Total Protein 6.9 g/dL (6.4-8.2) Albumin 3.7 g/dL (3.4-5.0) Albumin/Globulin Ratio 1.2 (1.0-1.7) 25-Hydroxy Vitamin D Total 13.6 ng/mL (30-100) Thyroid Stimulating Hormone (TSH) 0.249 uIU/mL (0.358-3.74) Triglycerides Level 87 mg/dL (0-150) Cholesterol Level 115 mg/dL (0-200) LDL Cholesterol, Calculated 69 mg/dL (0-100) VLDL Cholesterol, Calculated 17 mg/dL (0-40) Non-HDL Cholesterol Calculated 86 mg/dL (0-129) HDL Cholesterol 29 mg/dL (40-60) Cholesterol/HDL Ratio 4.0 Nasal Screen MRSA (PCR) Positive (Negative) Test 01/23/19 06:00 01/24/19 03:50 Urine Collection Type Unknown Urine Color Yellow Urine Clarity Clear Urine pH 6.0 Urine Specific [place] 1.020 Urine Protein Negative mg/dL (NEG-TRACE) Urine Glucose (UA) Negative mg/dL (NEG) Urine Ketones (Stick) Negative mg/dL (NEG) Urine Blood Negative (NEG) Urine Nitrite Negative (NEG) Urine Bilirubin Negative (NEG) Urine Urobilinogen Dipstick 1.0 mg/dL (0.2 mg/dL) Urine Leukocyte Esterase Negative (NEG) Urine RBC 0 /HPF (0-2) Urine WBC 1-4 /HPF (0-4) Urine Squamous Epithelial Cells Occ /LPF Urine Bacteria 0 /HPF (0-FEW) Urine Mucus Mod /LPF White Blood Count 6.1 x10^3/uL (4.0-11.0) Red Blood Count 4.88 x10^6/uL (4.30-5.70) Hemoglobin 13.9 g/dL (13.0-17.5) Hematocrit 42.5 % (39.0-53.0) Mean Corpuscular Volume 87 fL (79-100) Mean Corpuscular Hemoglobin 28 pg (25-35) Mean Corpuscular Hemoglobin Concent 33 g/dL (31-37) Red Cell Distribution Width 14.4 % (11.5-14.5) Platelet Count 215 x10^3/uL (140-400) Neutrophils (%) (Auto) 41 % (31-73) Lymphocytes (%) (Auto) 44 % (24-48) Monocytes (%) (Auto) 12 % (0-9) Eosinophils (%) (Auto) 2 % (0-3) Basophils (%) (Auto) 1 % (0-3) Neutrophils # (Auto) 2.5 x10^3uL (1.8-7.7) Lymphocytes # (Auto) 2.7 x10^3/uL (1.0-4.8) Monocytes # (Auto) 0.7 x10^3/uL (0.0-1.1) Eosinophils # (Auto) 0.1 x10^3/uL (0.0-0.7) Basophils # (Auto) 0.0 x10^3/uL (0.0-0.2) Erythrocyte Sedimentation Rate 5 (0-15) Sodium Level 143 mmol/L (136-145) Potassium Level 3.9 mmol/L (3.5-5.1) Chloride Level 107 mmol/L (98-107) Carbon Dioxide Level 28 mmol/L (21-32) Anion Gap 8 (6-14) Blood Urea Nitrogen 16 mg/dL (8-26) Creatinine 1.1 mg/dL (0.7-1.3) Estimated GFR (Cockcroft-Gault) 84.1 Glucose Level 102 mg/dL (70-99) Calcium Level 9.1 mg/dL (8.5-10.1) Laboratory Tests Test 01/24/19 03:50 White Blood Count 6.1 x10^3/uL (4.0-11.0) Red Blood Count 4.88 x10^6/uL (4.30-5.70) Hemoglobin 13.9 g/dL (13.0-17.5) Hematocrit 42.5 % (39.0-53.0) Mean Corpuscular Volume 87 fL (79-100) Mean Corpuscular Hemoglobin 28 pg (25-35) Mean Corpuscular Hemoglobin Concent 33 g/dL (31-37) Red Cell Distribution Width 14.4 % (11.5-14.5) Platelet Count 215 x10^3/uL (140-400) Neutrophils (%) (Auto) 41 % (31-73) Lymphocytes (%) (Auto) 44 % (24-48) Monocytes (%) (Auto) 12 % (0-9) Eosinophils (%) (Auto) 2 % (0-3) Basophils (%) (Auto) 1 % (0-3) Neutrophils # (Auto) 2.5 x10^3uL (1.8-7.7) Lymphocytes # (Auto) 2.7 x10^3/uL (1.0-4.8) Monocytes # (Auto) 0.7 x10^3/uL (0.0-1.1) Eosinophils # (Auto) 0.1 x10^3/uL (0.0-0.7) Basophils # (Auto) 0.0 x10^3/uL (0.0-0.2) Erythrocyte Sedimentation Rate 5 (0-15) Sodium Level 143 mmol/L (136-145) Potassium Level 3.9 mmol/L (3.5-5.1) Chloride Level 107 mmol/L (98-107) Carbon Dioxide Level 28 mmol/L (21-32) Anion Gap 8 (6-14) Blood Urea Nitrogen 16 mg/dL (8-26) Creatinine 1.1 mg/dL (0.7-1.3) Estimated GFR (Cockcroft-Gault) 84.1 Glucose Level 102 mg/dL (70-99) Calcium Level 9.1 mg/dL (8.5-10.1) Medications Current Medications Fentanyl Citrate (Fentanyl 2ml Vial) 50 mcg 1X ONCE IV Last administered on 01/22/19 16:37; Start 01/22/19 at 16:30; Stop 01/22/19 at 16:31; Status DC Amlodipine Besylate (Norvasc) 10 mg DAILY PO Last administered on 01/23/19at 10:33; Start 01/23/19 at 09:00 Aspirin (Ecotrin) 325 mg DAILYWBKFT PO ; Start 01/23/19 at 08:00; Stop 01/23/19 at 08:00; Status DC Carvedilol (Coreg) 3.125 mg BIDWMEALS PO Last administered on 01/23/19at 16:27; Start 01/23/19 at 08:00 Furosemide (Lasix) 20 mg DAILY PO ; Start 01/23/19 at 09:00; Stop 01/23/19 at 09:00; Status DC Acetaminophen/ Hydrocodone Bitart (Lortab 5/325) 1 tab PRN Q6HRS PRN PO PAIN Last administered on 01/24/19at 08:16; Start 01/22/19 at 19:45 Lisinopril (Prinivil) 20 mg DAILY PO Last administered on 01/23/19at 10:33; Start 01/23/19 at 09:00 Nitroglycerin (Nitrostat) 0.4 mg PRN Q5MIN PRN SL CHEST PAIN; Start 01/22/19 at 19:45; Stop 01/22/19 at 22:16; Status DC Ondansetron HCl (Zofran Odt) 4 mg PRN BID PRN PO NAUSEA/VOMITING; Start 01/22/19 at 19:45 Dicyclomine HCl (Bentyl) 20 mg QID PO Last administered on 01/23/19 21:20; Start 01/22/19 at 21:00 Cetirizine HCl (ZyrTEC) 10 mg DAILY PO Last administered on 01/23/19at 10:31; Start 01/23/19 at 09:00 Simvastatin (Zocor) 20 mg HS PO Last administered on 01/23/19at 21:22; Start 01/22/19 at 21:00 Enoxaparin Sodium (Lovenox 40mg Syringe) 40 mg Q24H SQ Last administered on 01/23/19at 21:18; Start 01/22/19 at 20:00 Acetaminophen (Tylenol) 325 mg PRN Q6HRS PRN PO PAIN; Start 01/22/19 at 22:00; Stop 01/23/19 at 09:02; Status DC Amlodipine Besylate (Norvasc) 10 mg DAILY PO ; Start 01/23/19 at 09:00; Stop 01/23/19 at 09:00; Status DC Aspirin (Children'S Aspirin) 81 mg DAILYWBKFT PO ; Start 01/23/19 at 08:00; Status Cancel Azelastine HCl (Astelin) 2 spray PRN BID PRN NS ALLERGIES; Start 01/22/19 at 22:00 Carvedilol (Coreg) 12.5 mg BIDWMEALS PO ; Start 01/23/19 at 08:00; Status Cancel Cetirizine HCl (ZyrTEC) 10 mg DAILY PO ; Start 01/23/19 at 09:00; Status Cancel Clopidogrel Bisulfate (Plavix) 75 mg DAILY PO Last administered on 01/23/19at 10:31; Start 01/23/19 at 09:00 Diclofenac Sodium (Voltaren) 1 eric QID TP Last administered on 01/24/19at 08:16; Start 01/23/19 at 09:00 Guaifenesin (Mucinex) 600 mg BID PO Last administered on 01/23/19at 21:20; Start 01/23/19 at 09:00 Acetaminophen/ Hydrocodone Bitart (Lortab 5/325) 1 tab PRN BID PRN PO PAIN; Start 01/22/19 at 22:00; Status Cancel Lisinopril (Prinivil) 40 mg DAILY PO ; Start 01/23/19 at 09:00; Stop 01/23/19 at 09:00; Status DC Nitroglycerin (Nitrostat) 0.4 mg PRN Q5MIN PRN SL CHEST PAIN; Start 01/22/19 at 22:00 Sertraline HCl (Zoloft) 50 mg DAILY PO Last administered on 01/23/19 10:32; Start 01/23/19 at 09:00 Baclofen (Lioresal) 20 mg QID PO Last administered on 01/23/19 21:20; Start at 09:00 Artificial Tears (Artificial Tears) 1 drop QID OU Last administered on 01/24/19 08:16; Start 01/23/19 at 09:00 Fluticasone Propionate (Flonase) 2 spray DAILY NS Last administered on 01/24/19 08:16; Start 01/23/19 at 09:00 Ketotifen Fumarate (Zaditor) 1 drop BID OU Last administered on 01/24/19at 08:17; Start 01/23/19 at 09:00 Mirtazapine (Remeron) 7.5 mg HS PO Last administered on 01/23/19 21:20; Start 01/22/19 at 23:00 Pantoprazole Sodium (Protonix) 20 mg DAILYAC PO Last administered on 01/23/19 10:35; Start 01/23/19 at 07:30 Polyethylene Glycol (miraLAX PACKET) 17 gm DAILY PO Last administered on 01/23/19 10:35; Start 01/23/19 at 09:00 Atorvastatin Calcium (Lipitor) 80 mg HS PO Last administered on 01/23/19 21:20; Start 01/22/19 at 23:00 Sennosides (Senna) 17.2 mg PRN BID PRN PO CONSTIPATION; Start 01/22/19 at 22:00 Acetaminophen (Tylenol) 650 mg PRN Q6HRS PRN PO TEMP > 100.4F; Start 01/23/19 at 09:00 Acetaminophen (Tylenol Supp) 650 mg PRN Q4HRS PRN [place] TEMP > 100.4F; Start 01/23/19 at 09:00 Aspirin (Ecotrin) 325 mg DAILYWBKFT PO Last administered on 01/23/19at 10:38; Start 01/23/19 at 09:30 Iohexol (Omnipaque 300 Mg/ml) 75 ml 1X ONCE IV Last administered on 01/23/19at 09:15; Start 01/23/19 at 09:15; Stop 01/23/19 at 09:16; Status DC Active Scripts Active Zofran Odt (Ondansetron) 4 Mg Tab.rapdis 4 Mg PO BID PRN Levsin-Sl (Hyoscyamine Sulfate) 0.125 Mg Tab.subl 1-2 Tab SL PRN Q4HRS Dicyclomine Hcl 20 Mg Tablet 1 Tab PO QID Azithromycin Tablet (Azithromycin) 250 Mg Tablet 250 Mg PO DAILY 4 Days Prednisone 50 Mg Tablet 1 Tab PO DAILY [place] 5-325 Tablet (Acetaminophen/Hydrocodone Bitart) 1 Each Tablet 1-2 Each PO PRN Q6HRS PRN as needed for pain Aspirin Ec (Aspirin) 325 Mg Tablet. 325 Mg PO DAILYWBKFT 30 Days Carvedilol (Carvedilol) 3.125 Mg Tablet 3.125 Mg PO BIDWMEALS 30 Days [place] 5-325 Tablet (Acetaminophen/Hydrocodone Bitart) 1 Each Tablet 1 Tab PO PRN Q6HRS PRN Reported Zaditor (Ketotifen Fumarate) 5 Ml Drops 1 Drop EACHEYE BID Zantac (Ranitidine Hcl) 150 Mg Tablet 150 Mg PO BID Zoloft (Sertraline Hcl) 50 Mg Tablet 50 Mg PO DAILY MDD 1.5 tablet daily Zyrtec (Cetirizine Hcl) 10 Mg Tablet 10 Mg PO DAILY Voltaren (Diclofenac Sodium) 100 Gm Gel..gram. 1 Gm TP QID Senokot (Sennosides) 8.6 Mg Tablet 2 Tab PO PRN BID MDD 8.6-50 Remeron (Mirtazapine) 15 Mg Tablet 7.5 Mg PO HS Protonix (Pantoprazole Sodium) 20 Mg Tablet. 20 Mg PO DAILY Clopidogrel (Clopidogrel Bisulfate) 75 Mg Tablet 75 Mg PO DAILY Norvasc (Amlodipine Besylate) 10 Mg Tablet 10 Mg PO DAILY [place] 5-325 Tablet (Acetaminophen/Hydrocodone Bitart) 1 Each Tablet 1 Tab PO BID PRN Nitrostat (Nitroglycerin) 0.4 Mg Tab.subl 0.4 Mg SL PRN Q5MIN PRN Mucinex (Guaifenesin) 600 Mg Tablet.er 600 Mg PO BID Miralax (Polyethylene Glycol 3350) 17 Gm Powd.pack 1 Pkt PO DAILY Lisinopril 40 Mg Tablet 40 Mg PO DAILY Lasix (Furosemide) 20 Mg Tablet 20 Mg PO DAILY Flonase Allergy Relief (Fluticasone Propionate) 9.9 Ml Thompson.susp 2 Sprays NS DAILY Refresh Optive Eye Drops (Carboxymethylcellulos/Glycerin) 15 Ml Drops 1 Drop EACHEYE QID Crestor (Rosuvastatin Calcium) 40 Mg Tablet 40 Mg PO HS Coreg (Carvedilol) 12.5 Mg Tablet 12.5 Mg PO BIDWMEALS Baclofen 20 Mg Tablet 20 Mg PO QID Azelastine Hcl 137 Mcg/0.137 Ml Thompson.pump 137 Mcg NS BID PRN Aspirin 81 Mg Tab.chew 81 Mg PO DAILY Tylenol (Acetaminophen) 325 Mg Tablet 325 Mg PO PRN Q6HRS PRN Claritin (Loratadine) 10 Mg Tablet 1 Tab PO DAILY Lisinopril 20 Mg Tablet 1 Tab PO DAILY Simvastatin 20 Mg Tablet 1 Tab PO QHS Amlodipine Besylate 10 Mg Tablet 10 Mg PO DAILY NITROGLYCERIN SubLingual (Nitroglycerin) 0.4 Mg Tab.subl 0.4 Mg SL PRN Q5MIN PRN Furosemide 20 Mg Tablet 1 Tab PO DAILY Vitals/I & O Vital Sign - Last 24 Hours 01/23/19 01/23/19 01/23/19 01/23/19 10:33 10:33 10:34 11:18 Temp 97.3 97.3 Pulse 53 53 60 67 Resp 18 B/P (MAP) 136/92 136/92 136/92 162/112 (129) Pulse Ox 97 O2 Delivery Room Air 01/23/19 01/23/19 01/23/19 01/23/19 15:19 16:25 16:27 18:03 Temp 98.1 98.1 Pulse 56 61 Resp 18 13 B/P (MAP) 142/95 (111) 142/95 Pulse Ox 94 94 94 O2 Delivery Room Air Room Air 01/23/19 01/23/19 01/23/19 01/24/19 19:30 19:43 23:22 03:20 Temp 97.8 97.6 97.9 97.8 97.6 97.9 Pulse 57 51 57 Resp 18 17 18 B/P (MAP) 126/83 (97) 113/65 (81) 135/80 (98) Pulse Ox 92 93 92 O2 Delivery Room Air Room Air Room Air Room Air 01/24/19 01/24/19 01/24/19 01/24/19 07:00 08:00 08:16 09:19 Temp 98.0 98.0 Pulse 54 Resp 18 B/P (MAP) 138/81 (100) Pulse Ox 93 O2 Delivery Room Air Room Air Room Air Room Air Intake and Output 01/23/19 01/23/19 01/24/19 14:59 22:59 06:59 Intake Total 180 ml 950 ml 800 ml Output Total 650 ml 1600 ml 700 ml Balance -470 ml -650 ml 100 ml IVANNA CRUZ III DO January 24, 2019 10:04
--- NOTE | 2019-01-24 10:13 | SNU/HH DC ---
DISCHARGE ORDERS DISCHARGE INFORMATION: FINAL DIAGNOSIS Problems Medical Problems: (1) Chest pain Status: Acute (2) Vision changes Status: Acute CONDITION ON DISCHARGE: Stable CODE STATUS: Code Status: Full GROUP HOME: SNF STAY <30 DAYS: Yes HOSPICE: HOSPICE: No HOSPICE EVAL & TREAT: No LTAC: ADMIT TO LTAC: No POST DISCHARGE ORDERS: ACTIVITY ORDERS: Bedrest today DIET AFTER DISCHARGE: Cardiac WOUND/INCISION CARE: No wound care needed CHECKS AFTER DISCHARGE: CHECKS AFTER DISCHARGE: Check blood press - daily TREATMENT/EQUIPMENT ORDERS: ADAPTIVE EQUIPMENT NEEDED: None Physical Therapy For: Evalulation/Treatment Occupational Therapy For: Evaluation/Treatment Speech Language Pathology For: Evaluation/Treatment DISCHARGE MEDICATIONS: Home Meds Active Scripts Ondansetron (ZOFRAN ODT) 4 Mg Tab.rapdis, 4 MG PO BID PRN for NAUSEA/VOMITING, #14 TAB Prov:HERACLIO LOZA DO 07/18/18 Hyoscyamine Sulfate (LEVSIN-SL) 0.125 Mg Tab.subl, 1-2 TAB SL PRN Q4HRS, #20 TAB 0 Refills Prov:HERACLIO LOZA DO 07/18/18 Dicyclomine Hcl (DICYCLOMINE HCL) 20 Mg Tablet, 1 TAB PO QID, #20 TAB Prov:KATHLEEN MCMAHON MD 06/29/18 Azithromycin (AZITHROMYCIN TABLET) 250 Mg Tablet, 250 MG PO DAILY for ANTI- BIOTIC for 4 Days, #4 TAB 0 Refills Prov:AKUA ZAIDI DO 05/21/18 Prednisone (PREDNISONE) 50 Mg Tablet, 1 TAB PO DAILY, #4 TAB Prov:AKUA ZAIDI DO 05/21/18 Hydrocodone/Apap 5-325 (NORCO 5-325 TABLET) 1 Each Tablet, 1-2 EACH PO PRN Q6HRS PRN for cough or pain, #15 as needed for pain Prov:AKUA ZAIDI DO 05/21/18 Aspirin (ASPIRIN EC) 325 Mg Tablet.dr, 325 MG PO DAILYWBKFT for 30 Days, #30 TAB.SR Prov:REY DAVIS MD 10/19/17 Carvedilol (CARVEDILOL ) 3.125 Mg Tablet, 3.125 MG PO BIDWMEALS for 30 Days, #60 TAB Prov:REY DAVIS MD 10/19/17 Hydrocodone/Apap 5-325 (NORCO 5-325 TABLET) 1 Each Tablet, 1 TAB PO PRN Q6HRS PRN for PAIN, #20 TAB Prov:LIA CHRISTOPHER 08/21/16 Reported Medications Ketotifen Fumarate (ZADITOR) 5 Ml Drops, 1 DROP EACHEYE BID for conjunctivitis, #5 ML 1 Refill 01/22/19 Ranitidine Hcl (ZANTAC) 150 Mg Tablet, 150 MG PO BID for heartburn, TAB 01/22/19 Sertraline Hcl (ZOLOFT) 50 Mg Tablet, 50 MG PO DAILY for ANTI-DEPRESSANT MDD 1.5 tablet daily, TAB 0 Refills 01/22/19 Cetirizine Hcl (ZYRTEC) 10 Mg Tablet, 10 MG PO DAILY for allergies, TAB 01/22/19 Diclofenac Sodium (VOLTAREN) 100 Gm Gel..gram., 1 GM TP QID for pain, #100 GM 2 Refills 01/22/19 Sennosides (SENOKOT) 8.6 Mg Tablet, 2 TAB PO PRN BID for constipation MDD 8.6- 50, #40 TAB 01/22/19 Mirtazapine (REMERON) 15 Mg Tablet, 7.5 MG PO HS for insomia, TAB 01/22/19 Pantoprazole Sodium (PROTONIX) 20 Mg Tablet.dr, 20 MG PO DAILY for heartburn, TAB 01/22/19 Clopidogrel Bisulfate (CLOPIDOGREL) 75 Mg Tablet, 75 MG PO DAILY for TO PREVENT BLOOD CLOTS, #30 TAB 0 Refills 01/22/19 Amlodipine Besylate (NORVASC) 10 Mg Tablet, 10 MG PO DAILY for htn, TAB 01/22/19 Hydrocodone/Apap 5-325 (NORCO 5-325 TABLET) 1 Each Tablet, 1 TAB PO BID PRN for bid, #60 TAB 01/22/19 Nitroglycerin (NITROSTAT) 0.4 Mg Tab.subl, 0.4 MG SL PRN Q5MIN PRN for CHEST PAIN, BOTTLE 01/22/19 Guaifenesin (MUCINEX) 600 Mg Tablet.er, 600 MG PO BID for cough/congestion, TAB.SR 01/22/19 Polyethylene Glycol 3350 (MIRALAX) 17 Gm Powd.pack, 1 PKT PO DAILY for constipation, PKT 01/22/19 Lisinopril (LISINOPRIL) 40 Mg Tablet, 40 MG PO DAILY for FOR HYPERTENSION, #30 TAB 0 Refills 01/22/19 Furosemide (LASIX) 20 Mg Tablet, 20 MG PO DAILY for essential htn, TAB 01/22/19 Fluticasone Propionate (Flonase Allergy Relief) 9.9 Ml [place].susp, 2 SPRAYS NS DAILY for chronic sinusititis , BOTTLE 01/22/19 Carboxymethylcellulos/Glycerin (REFRESH OPTIVE EYE DROPS) 15 Ml Drops, 1 DROP EACHEYE QID for dry eye syndrome, #30 ML 6 Refills 01/22/19 Rosuvastatin Calcium (CRESTOR) 40 Mg Tablet, 40 MG PO HS for FOR CHOLESTEROL, #30 TAB 0 Refills 01/22/19 Carvedilol (COREG ) 12.5 Mg Tablet, 12.5 MG PO BIDWMEALS for CARDIAC, TAB 01/22/19 Baclofen (BACLOFEN) 20 Mg Tablet, 20 MG PO QID for MUSCLE RELAXER, #30 TAB 0 Refills 01/22/19 Azelastine Hcl (AZELASTINE HCL) 137 Mcg/0.137 Ml [place].pump, 137 MCG NS BID PRN for ALLERGIES, SPRAY 01/22/19 Aspirin (ASPIRIN) 81 Mg Tab.chew, 81 MG PO DAILY for heart, TAB.CHEW 01/22/19 Acetaminophen (TYLENOL) 325 Mg Tablet, 325 MG PO PRN Q6HRS PRN for PAIN, TAB 01/22/19 Loratadine (CLARITIN) 10 Mg Tablet, 1 TAB PO DAILY, #30 TAB 5 Refills 02/18/18 Lisinopril (LISINOPRIL) 20 Mg Tablet, 1 TAB PO DAILY, #30 TAB 5 Refills 10/17/17 Simvastatin (SIMVASTATIN) 20 Mg Tablet, 1 TAB PO QHS, #30 TAB 5 Refills 10/17/17 Amlodipine Besylate (AMLODIPINE BESYLATE) 10 Mg Tablet, 10 MG PO DAILY, TAB 10/17/17 Nitroglycerin (NITROGLYCERIN SubLingual) 0.4 Mg Tab.subl, 0.4 MG SL PRN Q5MIN PRN for CHEST PAIN, BOTTLE 10/17/17 Furosemide (FUROSEMIDE) 20 Mg Tablet, 1 TAB PO DAILY, #90 TAB 1 Refill 10/17/17 CASTLE,NIAL K III DO January 24, 2019 10:13
--- NOTE | 2019-01-24 10:23 | PDOC ---
PROGRESS NOTES Assessment Problems Medical Problems: (1) Chest pain Status: Acute (2) Vision changes Status: Acute Several prior strokes, new deficit is a left abducens palsy implying brainstem localization, but brain MRI is negative for acute stroke. 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 Rehabilitation modalities Continue aspirin and clopidogrel Continue statin Consider hypercoaguable workup as outpatient Awaiting [facility] records Could be discharged as soon as this afternoon Discussed with Dr. Sood Objective Vital Signs Date Time Temp Pulse Resp B/P (MAP) Pulse Ox O2 Delivery O2 Flow Rate FiO2 01/24/19 09:19 Room Air 01/24/19 07:00 98.0 54 18 138/81 (100) 93 98.0 Intake and Output 01/24/19 06:59 Intake Total 1930 ml Output Total 2950 ml Balance -1020 ml Intake Oral 1930 ml Output Urine Total 2950 ml # Voids 1 PHYSICAL EXAM Physical Exam: Alert. Oriented to place and person, does not know date. Spastic dysarthria. PERRL. There is a left lateral rectus palsy CN: no focal findings. Muscle tone: bilateral spasticity. Muscle strength: weaker on the left side, best strength 3/5 DTR: 2+ Plantar reflex: flexor Gait: not examined in bed. Sensory exam: no abnormal findings. No cerebellar signs elicited. Review of Relevant I have reviewed the following items navya (where applicable) has been applied. Labs Laboratory Tests Test 01/22/19 15:15 01/22/19 22:05 01/23/19 00:55 01/23/19 03:00 White Blood Count 5.3 x10^3/uL (4.0-11.0) 5.9 x10^3/uL (4.0-11.0) Red Blood Count 5.00 x10^6/uL (4.30-5.70) 4.75 x10^6/uL (4.30-5.70) Hemoglobin 14.2 g/dL (13.0-17.5) 13.4 g/dL (13.0-17.5) Hematocrit 43.3 % (39.0-53.0) 41.2 % (39.0-53.0) Mean Corpuscular Volume 87 fL (79-100) 87 fL (79-100) Mean Corpuscular Hemoglobin 28 pg (25-35) 28 pg (25-35) Mean Corpuscular Hemoglobin Concent 33 g/dL (31-37) 33 g/dL (31-37) Red Cell Distribution Width 15.2 % (11.5-14.5) 14.8 % (11.5-14.5) Platelet Count 227 x10^3/uL (140-400) 228 x10^3/uL (140-400) Neutrophils (%) (Auto) 45 % (31-73) 36 % (31-73) Lymphocytes (%) (Auto) 41 % (24-48) 50 % (24-48) Monocytes (%) (Auto) 11 % (0-9) 12 % (0-9) Eosinophils (%) (Auto) 3 % (0-3) 3 % (0-3) Basophils (%) (Auto) 1 % (0-3) 1 % (0-3) Neutrophils # (Auto) 2.4 x10^3uL (1.8-7.7) 2.1 x10^3uL (1.8-7.7) Lymphocytes # (Auto) 2.2 x10^3/uL (1.0-4.8) 2.9 x10^3/uL (1.0-4.8) Monocytes # (Auto) 0.6 x10^3/uL (0.0-1.1) 0.7 x10^3/uL (0.0-1.1) Eosinophils # (Auto) 0.1 x10^3/uL (0.0-0.7) 0.2 x10^3/uL (0.0-0.7) Basophils # (Auto) 0.0 x10^3/uL (0.0-0.2) 0.0 x10^3/uL (0.0-0.2) Prothrombin Time 13.9 SEC (11.7-14.0) Prothromb Time International Ratio 1.1 (0.8-1.1) Activated Partial Thromboplast Time 32 SEC (24-38) Sodium Level 143 mmol/L (136-145) 142 mmol/L (136-145) Potassium Level 3.9 mmol/L (3.5-5.1) 3.7 mmol/L (3.5-5.1) Chloride Level 106 mmol/L (98-107) 107 mmol/L (98-107) Carbon Dioxide Level 29 mmol/L (21-32) 29 mmol/L (21-32) Anion Gap 8 (6-14) 6 (6-14) Blood Urea Nitrogen 16 mg/dL (8-26) 15 mg/dL (8-26) Creatinine 1.1 mg/dL (0.7-1.3) 1.0 mg/dL (0.7-1.3) Estimated GFR (Cockcroft-Gault) 84.1 93.9 BUN/Creatinine Ratio 15 (6-20) Glucose Level 110 mg/dL (70-99) 90 mg/dL (70-99) Hemoglobin A1c 5.9 % (4.8-5.6) Calcium Level 9.2 mg/dL (8.5-10.1) 9.0 mg/dL (8.5-10.1) Magnesium Level 1.9 mg/dL (1.8-2.4) Total Bilirubin 0.3 mg/dL (0.2-1.0) Aspartate Amino Transf (AST/SGOT) 20 U/L (15-37) Alanine Aminotransferase (ALT/SGPT) 30 U/L (16-63) Alkaline Phosphatase 74 U/L (46-116) Troponin I Quantitative < 0.017 ng/mL (0.000-0.055) < 0.017 ng/mL (0.000-0.055) 0.017 ng/mL (0.000-0.055) Total Protein 6.9 g/dL (6.4-8.2) Albumin 3.7 g/dL (3.4-5.0) Albumin/Globulin Ratio 1.2 (1.0-1.7) 25-Hydroxy Vitamin D Total 13.6 ng/mL (30-100) Thyroid Stimulating Hormone (TSH) 0.249 uIU/mL (0.358-3.74) Triglycerides Level 87 mg/dL (0-150) Cholesterol Level 115 mg/dL (0-200) LDL Cholesterol, Calculated 69 mg/dL (0-100) VLDL Cholesterol, Calculated 17 mg/dL (0-40) Non-HDL Cholesterol Calculated 86 mg/dL (0-129) HDL Cholesterol 29 mg/dL (40-60) Cholesterol/HDL Ratio 4.0 Nasal Screen MRSA (PCR) Positive (Negative) Test 01/23/19 06:00 01/24/19 03:50 Urine Collection Type Unknown Urine Color Yellow Urine Clarity Clear Urine pH 6.0 Urine Specific [place] 1.020 Urine Protein Negative mg/dL (NEG-TRACE) Urine Glucose (UA) Negative mg/dL (NEG) Urine Ketones (Stick) Negative mg/dL (NEG) Urine Blood Negative (NEG) Urine Nitrite Negative (NEG) Urine Bilirubin Negative (NEG) Urine Urobilinogen Dipstick 1.0 mg/dL (0.2 mg/dL) Urine Leukocyte Esterase Negative (NEG) Urine RBC 0 /HPF (0-2) Urine WBC 1-4 /HPF (0-4) Urine Squamous Epithelial Cells Occ /LPF Urine Bacteria 0 /HPF (0-FEW) Urine Mucus Mod /LPF White Blood Count 6.1 x10^3/uL (4.0-11.0) Red Blood Count 4.88 x10^6/uL (4.30-5.70) Hemoglobin 13.9 g/dL (13.0-17.5) Hematocrit 42.5 % (39.0-53.0) Mean Corpuscular Volume 87 fL (79-100) Mean Corpuscular Hemoglobin 28 pg (25-35) Mean Corpuscular Hemoglobin Concent 33 g/dL (31-37) Red Cell Distribution Width 14.4 % (11.5-14.5) Platelet Count 215 x10^3/uL (140-400) Neutrophils (%) (Auto) 41 % (31-73) Lymphocytes (%) (Auto) 44 % (24-48) Monocytes (%) (Auto) 12 % (0-9) Eosinophils (%) (Auto) 2 % (0-3) Basophils (%) (Auto) 1 % (0-3) Neutrophils # (Auto) 2.5 x10^3uL (1.8-7.7) Lymphocytes # (Auto) 2.7 x10^3/uL (1.0-4.8) Monocytes # (Auto) 0.7 x10^3/uL (0.0-1.1) Eosinophils # (Auto) 0.1 x10^3/uL (0.0-0.7) Basophils # (Auto) 0.0 x10^3/uL (0.0-0.2) Erythrocyte Sedimentation Rate 5 (0-15) Sodium Level 143 mmol/L (136-145) Potassium Level 3.9 mmol/L (3.5-5.1) Chloride Level 107 mmol/L (98-107) Carbon Dioxide Level 28 mmol/L (21-32) Anion Gap 8 (6-14) Blood Urea Nitrogen 16 mg/dL (8-26) Creatinine 1.1 mg/dL (0.7-1.3) Estimated GFR (Cockcroft-Gault) 84.1 Glucose Level 102 mg/dL (70-99) Calcium Level 9.1 mg/dL (8.5-10.1) Laboratory Tests Test 01/24/19 03:50 White Blood Count 6.1 x10^3/uL (4.0-11.0) Red Blood Count 4.88 x10^6/uL (4.30-5.70) Hemoglobin 13.9 g/dL (13.0-17.5) Hematocrit 42.5 % (39.0-53.0) Mean Corpuscular Volume 87 fL (79-100) Mean Corpuscular Hemoglobin 28 pg (25-35) Mean Corpuscular Hemoglobin Concent 33 g/dL (31-37) Red Cell Distribution Width 14.4 % (11.5-14.5) Platelet Count 215 x10^3/uL (140-400) Neutrophils (%) (Auto) 41 % (31-73) Lymphocytes (%) (Auto) 44 % (24-48) Monocytes (%) (Auto) 12 % (0-9) Eosinophils (%) (Auto) 2 % (0-3) Basophils (%) (Auto) 1 % (0-3) Neutrophils # (Auto) 2.5 x10^3uL (1.8-7.7) Lymphocytes # (Auto) 2.7 x10^3/uL (1.0-4.8) Monocytes # (Auto) 0.7 x10^3/uL (0.0-1.1) Eosinophils # (Auto) 0.1 x10^3/uL (0.0-0.7) Basophils # (Auto) 0.0 x10^3/uL (0.0-0.2) Erythrocyte Sedimentation Rate 5 (0-15) Sodium Level 143 mmol/L (136-145) Potassium Level 3.9 mmol/L (3.5-5.1) Chloride Level 107 mmol/L (98-107) Carbon Dioxide Level 28 mmol/L (21-32) Anion Gap 8 (6-14) Blood Urea Nitrogen 16 mg/dL (8-26) Creatinine 1.1 mg/dL (0.7-1.3) Estimated GFR (Cockcroft-Gault) 84.1 Glucose Level 102 mg/dL (70-99) Calcium Level 9.1 mg/dL (8.5-10.1) Medications Current Medications Fentanyl Citrate (Fentanyl 2ml Vial) 50 mcg 1X ONCE IV Last administered on 01/22/19 16:37; Start 01/22/19 at 16:30; Stop 01/22/19 at 16:31; Status DC Amlodipine Besylate (Norvasc) 10 mg DAILY PO Last administered on 01/23/19at 10:33; Start 01/23/19 at 09:00 Aspirin (Ecotrin) 325 mg DAILYWBKFT PO ; Start 01/23/19 at 08:00; Stop 01/23/19 at 08:00; Status DC Carvedilol (Coreg) 3.125 mg BIDWMEALS PO Last administered on 01/23/19at 16:27; Start 01/23/19 at 08:00 Furosemide (Lasix) 20 mg DAILY PO ; Start 01/23/19 at 09:00; Stop 01/23/19 at 09:00; Status DC Acetaminophen/ Hydrocodone Bitart (Lortab 5/325) 1 tab PRN Q6HRS PRN PO PAIN Last administered on 01/24/19 08:16; Start 01/22/19 at 19:45 Lisinopril (Prinivil) 20 mg DAILY PO Last administered on 01/23/19at 10:33; Start 01/23/19 at 09:00 Nitroglycerin (Nitrostat) 0.4 mg PRN Q5MIN PRN SL CHEST PAIN; Start 01/22/19 at 19:45; Stop 01/22/19 at 22:16; Status DC Ondansetron HCl (Zofran Odt) 4 mg PRN BID PRN PO NAUSEA/VOMITING; Start 01/22/19 at 19:45 Dicyclomine HCl (Bentyl) 20 mg QID PO Last administered on 01/23/19 21:20; Start 01/22/19 at 21:00 Cetirizine HCl (ZyrTEC) 10 mg DAILY PO Last administered on 01/23/19at 10:31; Start 01/23/19 at 09:00 Simvastatin (Zocor) 20 mg HS PO Last administered on 01/23/19 21:22; Start 01/22/19 at 21:00 Enoxaparin Sodium (Lovenox 40mg Syringe) 40 mg Q24H SQ Last administered on 01/23/19 21:18; Start 01/22/19 at 20:00 Acetaminophen (Tylenol) 325 mg PRN Q6HRS PRN PO PAIN; Start 01/22/19 at 22:00; Stop 01/23/19 at 09:02; Status DC Amlodipine Besylate (Norvasc) 10 mg DAILY PO ; Start 01/23/19 at 09:00; Stop 01/23/19 at 09:00; Status DC Aspirin (Children'S Aspirin) 81 mg DAILYWBKFT PO ; Start 01/23/19 at 08:00; Status Cancel Azelastine HCl (Astelin) 2 spray PRN BID PRN NS ALLERGIES; Start 01/22/19 at 22:00 Carvedilol (Coreg) 12.5 mg BIDWMEALS PO ; Start 01/23/19 at 08:00; Status Cancel Cetirizine HCl (ZyrTEC) 10 mg DAILY PO ; Start 01/23/19 at 09:00; Status Cancel Clopidogrel Bisulfate (Plavix) 75 mg DAILY PO Last administered on 01/23/19at 10:31; Start 01/23/19 at 09:00 Diclofenac Sodium (Voltaren) 1 eric QID TP Last administered on 01/24/19at 08:16; Start 01/23/19 at 09:00 Guaifenesin (Mucinex) 600 mg BID PO Last administered on 01/23/19at 21:20; Start 01/23/19 at 09:00 Acetaminophen/ Hydrocodone Bitart (Lortab 5/325) 1 tab PRN BID PRN PO PAIN; Start 01/22/19 at 22:00; Status Cancel Lisinopril (Prinivil) 40 mg DAILY PO ; Start 01/23/19 at 09:00; Stop 01/23/19 at 09:00; Status DC Nitroglycerin (Nitrostat) 0.4 mg PRN Q5MIN PRN SL CHEST PAIN; Start 01/22/19 at 22:00 Sertraline HCl (Zoloft) 50 mg DAILY PO Last administered on 01/23/19 10:32; Start 01/23/19 at 09:00 Baclofen (Lioresal) 20 mg QID PO Last administered on 01/23/19 21:20; Start 01/23/19 at 09:00 Artificial Tears (Artificial Tears) 1 drop QID OU Last administered on 01/24/19 08:16; Start 01/23/19 at 09:00 Fluticasone Propionate (Flonase) 2 spray DAILY NS Last administered on 01/24/19 08:16; Start 01/23/19 at 09:00 Ketotifen Fumarate (Zaditor) 1 drop BID OU Last administered on 01/24/19 08:17; Start 01/23/19 at 09:00 Mirtazapine (Remeron) 7.5 mg HS PO Last administered on 01/23/19 21:20; Start 01/22/19 at 23:00 Pantoprazole Sodium (Protonix) 20 mg DAILYAC PO Last administered on 01/23/19 10:35; Start 01/23/19 at 07:30 Polyethylene Glycol (miraLAX PACKET) 17 gm DAILY PO Last administered on 01/23/19 10:35; Start 01/23/19 at 09:00 Atorvastatin Calcium (Lipitor) 80 mg HS PO Last administered on 01/23/19 21:20; Start 01/22/19 at 23:00 Sennosides (Senna) 17.2 mg PRN BID PRN PO CONSTIPATION; Start 01/22/19 at 22:00 Acetaminophen (Tylenol) 650 mg PRN Q6HRS PRN PO TEMP > 100.4F; Start 01/23/19 at 09:00 Acetaminophen (Tylenol Supp) 650 mg PRN Q4HRS PRN OR TEMP > 100.4F; Start 01/23/19 at 09:00 Aspirin (Ecotrin) 325 mg DAILYWBKFT PO Last administered on 01/23/19at 10:38; Start 01/23/19 at 09:30 Iohexol (Omnipaque 300 Mg/ml) 75 ml 1X ONCE IV Last administered on 01/23/19at 09:15; Start 01/23/19 at 09:15; Stop 01/23/19 at 09:16; Status DC Active Scripts Active Zofran Odt (Ondansetron) 4 Mg Tab.rapdis 4 Mg PO BID PRN Levsin-Sl (Hyoscyamine Sulfate) 0.125 Mg Tab.subl 1-2 Tab SL PRN Q4HRS Dicyclomine Hcl 20 Mg Tablet 1 Tab PO QID Azithromycin Tablet (Azithromycin) 250 Mg Tablet 250 Mg PO DAILY 4 Days Prednisone 50 Mg Tablet 1 Tab PO DAILY [place] 5-325 Tablet (Acetaminophen/Hydrocodone Bitart) 1 Each Tablet 1-2 Each PO PRN Q6HRS PRN as needed for pain Aspirin Ec (Aspirin) 325 Mg Tablet. 325 Mg PO DAILYWBKFT 30 Days Carvedilol (Carvedilol) 3.125 Mg Tablet 3.125 Mg PO BIDWMEALS 30 Days [place] 5-325 Tablet (Acetaminophen/Hydrocodone Bitart) 1 Each Tablet 1 Tab PO PRN Q6HRS PRN Reported Zaditor (Ketotifen Fumarate) 5 Ml Drops 1 Drop EACHEYE BID Zantac (Ranitidine Hcl) 150 Mg Tablet 150 Mg PO BID Zoloft (Sertraline Hcl) 50 Mg Tablet 50 Mg PO DAILY MDD 1.5 tablet daily Zyrtec (Cetirizine Hcl) 10 Mg Tablet 10 Mg PO DAILY Voltaren (Diclofenac Sodium) 100 Gm Gel..gram. 1 Gm TP QID Senokot (Sennosides) 8.6 Mg Tablet 2 Tab PO PRN BID MDD 8.6-50 Remeron (Mirtazapine) 15 Mg Tablet 7.5 Mg PO HS Protonix (Pantoprazole Sodium) 20 Mg Tablet. 20 Mg PO DAILY Clopidogrel (Clopidogrel Bisulfate) 75 Mg Tablet 75 Mg PO DAILY Norvasc (Amlodipine Besylate) 10 Mg Tablet 10 Mg PO DAILY [place] 5-325 Tablet (Acetaminophen/Hydrocodone Bitart) 1 Each Tablet 1 Tab PO BID PRN Nitrostat (Nitroglycerin) 0.4 Mg Tab.subl 0.4 Mg SL PRN Q5MIN PRN Mucinex (Guaifenesin) 600 Mg Tablet.er 600 Mg PO BID Miralax (Polyethylene Glycol 3350) 17 Gm Powd.pack 1 Pkt PO DAILY Lisinopril 40 Mg Tablet 40 Mg PO DAILY Lasix (Furosemide) 20 Mg Tablet 20 Mg PO DAILY Flonase Allergy Relief (Fluticasone Propionate) 9.9 Ml [place].susp 2 Sprays NS DAILY Refresh Optive Eye Drops (Carboxymethylcellulos/Glycerin) 15 Ml Drops 1 Drop EACHEYE QID Crestor (Rosuvastatin Calcium) 40 Mg Tablet 40 Mg PO HS Coreg (Carvedilol) 12.5 Mg Tablet 12.5 Mg PO BIDWMEALS Baclofen 20 Mg Tablet 20 Mg PO QID Azelastine Hcl 137 Mcg/0.137 Ml [place].pump 137 Mcg NS BID PRN Aspirin 81 Mg Tab.chew 81 Mg PO DAILY Tylenol (Acetaminophen) 325 Mg Tablet 325 Mg PO PRN Q6HRS PRN Claritin (Loratadine) 10 Mg Tablet 1 Tab PO DAILY Lisinopril 20 Mg Tablet 1 Tab PO DAILY Simvastatin 20 Mg Tablet 1 Tab PO QHS Amlodipine Besylate 10 Mg Tablet 10 Mg PO DAILY NITROGLYCERIN SubLingual (Nitroglycerin) 0.4 Mg Tab.subl 0.4 Mg SL PRN Q5MIN PRN Furosemide 20 Mg Tablet 1 Tab PO DAILY Vitals/I & O Vital Sign - Last 24 Hours 01/23/19 01/23/19 01/23/19 01/23/19 10:33 10:33 10:34 11:18 Temp 97.3 97.3 Pulse 53 53 60 67 Resp 18 B/P (MAP) 136/92 136/92 136/92 162/112 (129) Pulse Ox 97 O2 Delivery Room Air 01/23/19 01/23/19 01/23/19 01/23/19 15:19 16:25 16:27 18:03 Temp 98.1 98.1 Pulse 56 61 Resp 18 13 B/P (MAP) 142/95 (111) 142/95 Pulse Ox 94 94 94 O2 Delivery Room Air Room Air 01/23/19 01/23/19 01/23/19 01/24/19 19:30 19:43 23:22 03:20 Temp 97.8 97.6 97.9 97.8 97.6 97.9 Pulse 57 51 57 Resp 18 17 18 B/P (MAP) 126/83 (97) 113/65 (81) 135/80 (98) Pulse Ox 92 93 92 O2 Delivery Room Air Room Air Room Air Room Air 01/24/19 01/24/19 01/24/19 01/24/19 07:00 08:00 08:16 09:19 Temp 98.0 98.0 Pulse 54 Resp 18 B/P (MAP) 138/81 (100) Pulse Ox 93 O2 Delivery Room Air Room Air Room Air Room Air Intake and Output 01/23/19 01/23/19 01/24/19 14:59 22:59 06:59 Intake Total 180 ml 950 ml 800 ml Output Total 650 ml 1600 ml 700 ml Balance -470 ml -650 ml 100 ml Images Magnetic resonance imaging (MRI) of the brain and brainstem without contrast 01/23/2019 8:56 AM HISTORY: Blurred vision with prior CVAs. Weakness and speech difficulty. TECHNIQUE: Multiplanar multi-weighted MRI of the brain and brainstem was performed without intravenous contrast using the general brain protocol. COMPARISON: CT head January 22, 2019 FINDINGS: The scalp and calvarium are normal. The superior sagittal sinus demonstrates normal venous flow. The corpus callosum is normal in shape and signal intensity. The posterior fossa is unremarkable. The pituitary and sella are normal. The brainstem and craniocervical junction are unremarkable. There is a remote infarct involving the left phoenix radiata extending into the left basal ganglia. There is small territory encephalomalacia involving the left parietal lobe and posterior frontal lobe from prior infarct. There are T2/FLAIR signal hyperintense foci in the periventricular and subcortical white matter most suggestive of mild chronic small vessel ischemic changes. Diffusion weighted images reveal no hyperintensities to suggest acute cerebral infarction. Susceptibility artifact is identified involving the remote infarct in the left basal ganglia compatible with a prior microhemorrhage. The ventricles are normal in size and position without evidence of hydrocephalus. The paranasal sinuses are normal. The visualized portions of the mastoids are unremarkable. The orbits appear normal. Normal flow voids are demonstrated in the carotid arteries and basilar artery. IMPRESSION: 1. No evidence for acute or subacute ischemia. 2. Remote infarcts are identified involving the left posterior parietotemporal lobes, posterior frontal lobe, and left phoenix radiata. Left phoenix radiata remote infarct has associated hemosiderin deposition from prior microhemorrhage. 3. There are T2/FLAIR signal hyperintense foci in the periventricular and subcortical white matter most suggestive of mild chronic small vessel ischemic changes. CTA of the head and neck with contrast, 01/23/2019: HISTORY: Multiple CVAs Multidetector CT imaging was performed following an IV bolus injection of iodinated contrast material. Multiplanar reconstructions were produced including MIP images and 3-D volume reconstructions. No significant stenosis is seen at the origins of the cervicocephalic arteries from the aortic arch. There is mild calcific plaquing at the right carotid bifurcation without evidence of significant stenosis at its origin. The right internal carotid artery is tortuous with mild kinking of that vessel in the upper aspect of the neck. There is moderate calcific plaquing involving its cavernous segment without evidence of high-grade stenosis. The right anterior cerebral and middle cerebral arteries and their major branches show no definite abnormality. On the left, there is mild calcific plaquing at the carotid bifurcation with mild associated narrowing of the proximal internal carotid artery. The internal carotid artery in the upper neck is moderately tortuous with mild kinking. There is moderate calcific plaquing involving its cavernous segment without evidence of high-grade stenosis. The left anterior cerebral and middle cerebral arteries and their major branches are unremarkable. There is a patent posterior communicating artery is evident on the left. The right vertebral artery is patent. There is mild atherosclerotic plaquing of that vessel distally without evidence of high-grade stenosis. The left vertebral artery is also patent up through its junction with the basilar artery. The basilar artery shows no abnormality. The posterior cerebral arteries are unremarkable. IMPRESSION: 1. Mild atherosclerotic plaquing at both carotid bifurcations without evidence of high-grade stenosis. 2. Tortuosity and mild kinking of the distal internal carotid arteries in the upper neck. 3. Moderate calcific plaquing involving the cavernous segments of the distal internal carotid arteries without evidence of high-grade stenosis. 4. No major intracranial arterial stenosis or occlusion is identified. SASCHA MELO MD January 24, 2019 10:23
[2019-01-24 11:00] VITALS: BP 146/87
[2019-01-24] MEDS ORDERED: LIDOCAINE 2% VISCOUS 15 ML SOLUTION. ONE (11:58)
[2019-01-24] MEDS ORDERED: BENZOCAINE ONE 20% MUCOSAL SPRAY. (11:58)
[2019-01-24] MEDS ORDERED: LIDOCAINE 2% JELLY 6ML IN APPLICATOR. MM ONE (12:00)
[2019-01-24] MEDS ORDERED: LIDOCAINE 2% TOPICAL JELLY 5GM TUBE. TP ONE (12:18)
--- NOTE | 2019-01-24 12:36 | DS ---
DATE OF DISCHARGE: 01/24/2019 ADMISSION DIAGNOSES: Chest pain, visual changes and atrial fibrillation. DISCHARGE DIAGNOSES: Left sixth nerve palsy, history of old stroke, coronary artery disease, congestive heart failure, hyperlipidemia, hypertension and atrial fibrillation. CONSULTS: Neurology and Cardiology. PROCEDURES: Transesophageal echo. HOSPITAL COURSE: The patient is a pleasant middle-aged male who had a stroke a few years ago and he has been at the Rehab Unit. Apparently, he developed some chest pain and some visual changes. He was admitted. We did a full cardiac workup. He does have a transesophageal echo pending today. I did discuss the case with Dr. Onofre this morning of the Neurology Service. He states the patient just has a sixth nerve palsy and could go back to his facility from his standpoint. Clinically, the patient seems to be at his baseline. We saw him and examined him. His heart tones were normal. His lungs were clear. We will plan to discharge if the GILDA is negative. DISPOSITION: senior care. ACTIVITY: As tolerated. DIET: Low sodium. MEDICATIONS: Please see the MRAD. We simply continued his previous home medications. TOTAL TIME: 32 minutes. IVANNA CRUZ DO DR: MICHA/ileana JOB#: [id number] / [id number]
[2019-01-24] MEDS ORDERED: LIDOCAINE 2% VISCOUS 15 ML SOLUTION. SWSW ONE (13:15)
[2019-01-24] MEDS ORDERED: BENZOCAINE ONE 20% MUCOSAL SPRAY. MM ×2 (13:15→13:30)
--- NOTE | 2019-01-24 14:14 | NUR ---
SS following up with discharge planning. Discharge orders received for return to [facility], ; fax [phone]. SS phoned and faxed discharge orders and clinical to [facility]. Pt will discharge today and return to [facility] via [facility] ambulance at 1800. Pt, pt's spouse, and pt's RN notified.
[2019-01-24] MEDS ORDERED: PROPOFOL 20 ML IV ONE (14:36)
[2019-01-24 15:00] VITALS: BP 173/93
--- NOTE | 2019-01-24 15:38 | CARD ---
MR#: [id number] Date of Study: 01/24/2019 Ordering Physician: EBONY QUIGLEY, Referring Physician: STEPHANIE ESCALANTE, Tech: Mague Savage APPROVED REPORT EXAM: Two-dimensional and M-mode echocardiogram with Doppler and color Doppler. INDICATION CVA/TIA CAD Congestive Heart Failure Echo Enhancing Agent Agent/Amount Used: Agitated Saline 10mL RISK FACTORS Hypertension Hyperlipidemia Reason For Test : Rule out Intracardiac Thrombus. PROCEDURE Type of Sedation : General Anesthesia Sedation was administered by Roni Fernandez. Sedation was achieved with Propofol 160mg intravenously. Transesophageal probe was inserted and advanced into esophagus by Nawaf Veloz MD. Echo enhancement indication: R/O Septal defect. Echo enhancement agent administered: Agitated Saline The GILDA was performed without complications. Throughout the procedure, the blood pressure, pulse oximetry, cardiac rhythm, and rate were monitored . The patient tolerated the procedure without adverse effects. Recovery from general anesthesia was une ventful and vital signs were stable. LEFT VENTRICLE The Left Ventricle is mildly dilated. There is normal left ventricular wall thickness. The left ventr icular systolic function is normal and the ejection fraction is within normal range. The Ejection Fra ction is >55%. There is normal LV segmental wall motion. Transmitral Doppler flow pattern is Grade II -pseudonormal filling dynamics. RIGHT VENTRICLE The right ventricle is borderline dilated. There is normal right ventricular wall thickness. The righ t ventricular systolic function is normal. ATRIA The left atrium is mildly dilated. The right atrium size is normal. The interatrial septum is intact with no evidence for an atrial septal defect or patent foramen ovale as noted on 2D imaging. Negative agitated saline study. There is no thrombus noted in the left atrial appendage. AORTIC VALVE The aortic valve is normal in structure and function. Doppler and Color Flow revealed no significant aortic regurgitation. There is no significant aortic valvular stenosis. MITRAL VALVE The mitral valve is thickened but opens well. There is no evidence of mitral valve prolapse. There is no mitral valve stenosis. Doppler and Color Flow revealed no mitral valve regurgitation noted. TRICUSPID VALVE The tricuspid valve is normal in structure and function. Doppler and Color Flow revealed no tricuspid valve regurgitation noted. There is no tricuspid valve stenosis. PULMONIC VALVE The pulmonary valve is normal in structure and function. Doppler and Color Flow revealed no pulmonic valvular regurgitation. There is no pulmonic valvular stenosis. GREAT VESSELS The aortic root is mildly enlarged. The ascending aorta is normal in size. The IVC is normal in size and collapses >50% with inspiration. Critical Notification Critical Value: No <Conclusion> The left ventricular systolic function is normal and the ejection fraction is within normal range. Th e Ejection Fraction is >55%. There is normal LV segmental wall motion. There is no thrombus noted in the left atrial appendage. The interatrial septum is intact with no evidence for an atrial septal defect or patent foramen ovale as noted on 2D imaging. Negative agitated saline study. Signed by : Viktor Veloz, Electronically Approved : 01/24/2019 15:38:29
[2019-01-24 15:58] VITALS: BP 173/93
--- NOTE | 2019-01-24 19:21 | NUR ---
PT DISCHARGE TO [facility], PT ALERT AND ORIENTED, DENIES PAIN, NIHSS COMPLETED NO CHANGES FROM PREVIOUS ASSESSMENT. VSS. PMRN
[2019-01-26 18:09] LABS: ANA INTERP Negative (.)
== END 2019-01-24 19:20 | DRG 123 ==
LOC: ER 14:46 → 2 SOUTH 16:45
PROVIDERS: ADMIT Internal Medicine; ATTEND Internal Medicine
PROC: B24BZZ4 Ultrasonography of Heart with Aorta, Transesophageal (ICD-10-PCS; principal; 2019-01-24 14:00)
DX: H49.22 Sixth [abducent] nerve palsy, left eye (principal); I13.0 Hypertensive heart and chronic kidney disease with heart failure and stage 1 through stage 4 chronic kidney disease, or unspecified chronic kidney disease; I69.351 Hemiplegia and hemiparesis following cerebral infarction affecting right dominant side; R07.89 Other chest pain; E66.9 Obesity, unspecified; E78.00 Pure hypercholesterolemia, unspecified; E78.5 Hyperlipidemia, unspecified; M10.9 Gout, unspecified; M19.90 Unspecified osteoarthritis, unspecified site; F17.210 Nicotine dependence, cigarettes, uncomplicated; F03.90 Unspecified dementia, unspecified severity, without behavioral disturbance, psychotic disturbance, mood disturbance, and anxiety; G47.33 Obstructive sleep apnea (adult) (pediatric); G62.9 Polyneuropathy, unspecified; I25.10 Atherosclerotic heart disease of native coronary artery without angina pectoris; I48.91 Unspecified atrial fibrillation; I50.9 Heart failure, unspecified; I73.9 Peripheral vascular disease, unspecified; K21.9 Gastro-esophageal reflux disease without esophagitis; M21.371 Foot drop, right foot; M79.10 Myalgia, unspecified site; N18.9 Chronic kidney disease, unspecified; Z82.3 Family history of stroke; Z82.49 Family history of ischemic heart disease and other diseases of the circulatory system; Z99.3 Dependence on wheelchair; Z68.39 Body mass index [BMI] 39.0-39.9, adult; Z71.6 Tobacco abuse counseling
CPT/HCPCS: 36415; 70450; 70496; 70498; 70551; 71045; 80048; 80053; 80061; 81001; 82306; 83036; 83735; 84443; 84484; 85025; 85610; 85651; 85730; 86038; 87641; 93005; 93306; 93312; 96374; J1650; J2704; J3010; Q9967; 97116; 97530; 99285-25

== ENCOUNTER 2020-07-05 11:43 | Emergency (ER) | payer MEDICARE, OTHER ==
[~2020-07-05] VITALS: Ht 182.9 cm; Wt 140.9 kg
[~2020-07-05 11:43] MED LIST changes: +ACET325T9 PO; +AMLO-187 PO; +AMLO10TA4 PO; -AMLO10TA8 PO; +ASPI-630 PO; +AZEL137S3 NS; +BACL20TA PO; +BENZ-8 PO; +CARB15DR3 EACHEYE; +CARV12.5 PO; +CEPH250C PO; +CETI10TA74 PO; +CLOP75TA PO; +CRESTOR40 MG PO; +DEXT15DR5 EACHEYE; +DICL100G54 TP; +FINA5TAB4 PO; +FLUT9.9S NS; +FURO-69 PO; +GUAI600T47 PO; +KETO5DRO4 EACHEYE; +LACT1CAP19 PO; +MIRT15TA PO; +NITR0.4T24 SL; +NYST15CR TP; +PANT20TA2 PO; +POLY17PO29 PO; +RANI-376 PO; +SENN8.6T99 PO; +SERT50TA PO; +SIMV20TA18 PO; -SIMV20TA3 PO; +TAMS0.4C97 PO; +TIZA4TAB2 PO
[2020-07-05] MEDS ORDERED: TRIAMCINOLONE ACETONIDE 0.1% TOPICAL CREAM 15GM TUBE. TP STA (12:12)
--- NOTE | 2020-07-05 13:06 | RAD ---
Examination: FOOT RIGHT 3V History: Reason: right foot pain, stubbed great toe one week ago / Spl. Instructions: / History: Comparison/Correlation: None Findings: Total of 3 images of the right foot were obtained. Osteopenia is evident. No displaced fracture or bone destruction. Hallux valgus deformity is present. Minimal degenerative change corresponding to the patient's age. No radiopaque foreign body. Impression: No fracture. Consider further imaging if fracture is a persistent concern. Electronically signed by: Leobardo Garza MD (07/05/2020 1:03 PM) [facility]
[2020-07-05] MEDS ORDERED: TRIA15CR3 TP (14:22)
[2020-07-05] MEDS ORDERED: CEPH500T PO (14:22)
--- NOTE | 2020-07-05 14:22 | PHYS DOC ---
Past Medical History Past Medical History: CHF, CVA, High Cholesterol, Hypertension, Stroke Additional Past Medical Histor: Gout, Past Surgical History: Other Additional Past Surgical Histo: heart cath, no stent Smoking Status: Former Smoker Alcohol Use: None Drug Use: None General Adult EDM: Chief Complaint: TOE PROBLEM HPI: HPI: Patient is a 55 year old male with history of CVA with right-sided weakness, hypertension, high cholesterol who presents to the ED today complaining of a contusion to the right toes that occurred a month ago. Patient states he was ambulating and stubbed his toe on a bedpost. Patient denies falling and hitting his head. Also complaining of a rash on the right side of the body specifically right upper body that began a couple minutes prior to coming to the ED. Denies history of shingles. Does not know if he had chickenpox or not. Review of Systems: Review of Systems: Constitutional: Denies fever or chills. [] Eyes: Denies change in visual acuity. [] HENT: Denies nasal congestion or sore throat. [] Respiratory: Denies cough or shortness of breath. [] Cardiovascular: Denies chest pain or edema. [] GI: Denies abdominal pain, nausea, vomiting, bloody stools or diarrhea. [] : Denies dysuria. [] Musculoskeletal: Reports stopping the right toes Integument: Reports rash Neurologic: Denies headache, focal weakness or sensory changes. [] Psychiatric: Denies depression or anxiety. [] Heart Score: Risk Factors: Risk Factors: DM, Current or recent (<one month) smoker, HTN, HLP, family history of CAD, obesity. Risk Scores: Score 0 - 3: 2.5% MACE over next 6 weeks - Discharge Home Score 4 - 6: 20.3% MACE over next 6 weeks - Admit for Clinical Observation Score 7 - 10: 72.7% MACE over next 6 weeks - Early Invasive Strategies Current Medications: Current Medications Medications (Trade) Dose Ordered Sig/Theodora Start Time Stop Time Status Last Admin Dose Admin Triamcinolone Acetonide (Kenalog 0.1%) 1 eric 1X STAT 07/05/20 12:12 07/05/20 12:15 DC 07/05/20 12:43 1 ERIC Allergies: Allergies: Allergies Coded Allergies Type Severity Reaction Last Updated Verified I S O L A T I O N *CONTACT* Allergy Unknown 01/24/19 Yes No Known Medication Allergies Allergy Unknown 01/24/19 Yes Physical Exam: PE: Constitutional: Well developed, well nourished, no acute distress, non-toxic appearance. [] HENT: Normocephalic, atraumatic, bilateral external ears normal, oropharynx moist, no oral exudates, nose normal. [] Eyes: PERRLA, EOMI, conjunctiva normal, no discharge. [] Neck: Normal range of motion, no tenderness, supple, no stridor. [] Cardiovascular:Heart rate regular rhythm, no murmur [] Lungs & Thorax: Bilateral breath sounds clear to auscultation [] Abdomen: Bowel sounds normal, soft, no tenderness, no masses, no pulsatile masses. [] Skin: Warm, dry, slight erythema noted on the right upper back Back: No tenderness, no CVA tenderness. [] Extremities: Right foot with no obvious deformity. Left lateral distal toes with tiny lacerations approximately 3 mm each on the great toe, second toe and third toes. No signs of infection right now. +2 right pedal pulse. Range of motion intact. Cap refill less than 2 seconds the right toes. Sensation intact. Neurologic: Alert and oriented X 3, normal motor function, normal sensory function, no focal deficits noted. [] Psychologic: Affect normal, judgement normal, mood normal. [] Current Patient Data: Vital Signs: Vital Signs Date Time Temp Pulse Resp B/P (MAP) Pulse Ox O2 Delivery O2 Flow Rate FiO2 07/05/20 11:50 98.0 57 20 130/67 (88) 97 Room Air 98.0 EKG: EKG: [] Radiology/Procedures: Radiology/Procedures: []PROCEDURE: FOOT RIGHT 3V Examination: FOOT RIGHT 3V History: Reason: right foot pain, stubbed great toe one week ago / Spl. Instructions: / History: Comparison/Correlation: None Findings: Total of 3 images of the right foot were obtained. Osteopenia is evident. No displaced fracture or bone destruction. Hallux valgus deformity is present. Minimal degenerative change corresponding to the patient's age. No radiopaque foreign body. Impression: No fracture. Consider further imaging if fracture is a persistent concern. Electronically signed by: Leobardo Prajapati MD (07/05/2020 1:03 PM) [facility] DICTATED and SIGNED BY: LEOBARDO PRAJAPATI MD DATE: 07/05/20 1878 Course & Med Decision Making: Course & Med Decision Making Pertinent Labs and Imaging studies reviewed. (See chart for details) This is a 55-year-old male patient presenting to the ED today with right toes contusion that occurred a month ago after she stubbed his toes on a bedpost. Patient had a couple open wounds on the area with no signs of infection the has reported the area has drained pus before. We will put patient on cephalexin. X-rays of the right foot are negative. Patient is also complaining of a itchy rash of the right upper back. Slight erythema noted on the back. Rash does not look SHINGLES today though informed them if it is shingles it will continue to be red and may blister up. At this point we will not cover her for shingles but will discharge patient with triamcinolone cream and instruct him to take Benadryl as well. Follow-up with primary care doctor in a week. Tetanus up-to-date. Ritika Disclaimer: Ritika Disclaimer: This electronic medical record was generated, in whole or in part, using a voice recognition dictation system. Departure Departure Impression: Primary Impression: Contusion of right foot including toes Qualified Codes: S90.31XA - Contusion of right foot, initial encounter; S90.121A - Contusion of right lesser toe(s) without damage to nail, initial encounter Additional Impressions: Rash of back Toe laceration Qualified Codes: S91.114A - Laceration without foreign body of right lesser toe(s) without damage to nail, initial encounter Disposition: 01 DC HOME SELF CARE/HOMELESS Condition: STABLE Referrals: UNKNOWN PCP NAME (PCP) follow up with your doctor next week Patient Instructions: Contusion, [id number], Rash Additional Instructions: You were seen for right toe contusion. Your right foot x-rays are negative for any acute findings. Take the prescribed antibiotics until completed for the open wounds on your toes. Keep the areas clean and dry. You can apply Neosporin to the area twice a day. Come back to the ED at any point wound condition worsens. Use the prescribed cream on your back for your rash, you can also take Benadryl for this rash. Scripts Triamcinolone Acetonide (TRIAMCINOLONE ACETONIDE 0.1% CREAM) 15 Gm Cream..g. 1 ERIC TP TID, #1 TUBE 1 Refill Prov: AARTI WASHINGTON APRN 07/05/20 Cephalexin (CEPHALEXIN) 500 Mg Tablet 1 TAB PO TID, #30 TAB Prov: AARTI WASHINGTON APRN 07/05/20 AARTI WASHINGTON APRN Jul 05, 2020 14:22
[2020-07-05 15:19] VITALS: BP 133/89
== END 2020-07-05 15:30 | disposition home or self-care (01) ==
LOC: ER 11:43
DX: S91.114A Laceration without foreign body of right lesser toe(s) without damage to nail, initial encounter (principal); E78.00 Pure hypercholesterolemia, unspecified; I11.0 Hypertensive heart disease with heart failure; I50.9 Heart failure, unspecified; Z86.73 Personal history of transient ischemic attack (TIA), and cerebral infarction without residual deficits; M10.9 Gout, unspecified; Z87.891 Personal history of nicotine dependence; Z91.041 Radiographic dye allergy status; W22.03XA Walked into furniture, initial encounter; Y93.89 Activity, other specified; Y92.89 Other specified places as the place of occurrence of the external cause; Y99.8 Other external cause status
CPT/HCPCS: 73630; 99284

== ENCOUNTER 2020-08-19 16:07 | Emergency (ER) | payer MEDICARE, OTHER ==
[~2020-08-19] VITALS: Ht 177.8 cm; Wt 102.0 kg
[~2020-08-19 16:07] MED LIST changes: +CEPH500T PO; +MIRT-36 PO; -MIRT15TA PO; +TRIA15CR3 TP
--- NOTE | 2020-08-19 17:35 | ED.ADGEN ---
Past Medical History Past Medical History: CHF, CVA, High Cholesterol, Hypertension, Stroke Additional Past Medical Histor: Gout, Past Surgical History: Other Additional Past Surgical Histo: heart cath, no stent Smoking Status: Former Smoker Alcohol Use: None Drug Use: None General Adult EDM: Chief Complaint: SHORTNESS OF BREATH HPI: HPI: Patient is a 55 year old male brought by EMS from home with multiple complaints. Main complaint is shortness of breath but is also complaining of pain in his back and his feet. He denies cough, chest pain, fevers, diarrhea, vomiting. Denies any sick contacts Review of Systems: Review of Systems: Negative except for HPI Current Medications: Current Medications Medications (Trade) Dose Ordered Sig/Theodora Start Time Stop Time Status Last Admin Dose Admin Ceftriaxone Sodium (Rocephin) 1 gm 1X ONCE 08/19/20 20:00 08/19/20 20:01 DC 08/19/20 20:00 1 GM Allergies: Allergies: Allergies Coded Allergies Type Severity Reaction Last Updated Verified I S O L A T I O N *CONTACT* Allergy Unknown 01/24/19 Yes No Known Medication Allergies Allergy Unknown 01/24/19 Yes Physical Exam: PE: Constitutional: Well developed, well nourished, no acute distress, non-toxic appearance. [] HENT: Normocephalic, atraumatic, bilateral external ears normal, oropharynx moist, no oral exudates, nose normal. [] Eyes: PERRLA, EOMI, conjunctiva normal, no discharge. [] Neck: Normal range of motion, no tenderness, supple, no stridor. [] Cardiovascular:Heart rate regular rhythm, no murmur [] Lungs & Thorax: Bilateral breath sounds clear to auscultation [] Abdomen: Bowel sounds normal, soft, no tenderness, no masses, no pulsatile masses. [] Skin: Warm, dry, no erythema, no rash. [] Back: No tenderness, no CVA tenderness. [] Extremities: No tenderness, no cyanosis, no clubbing, ROM intact, no edema. [] Neurologic: Alert and oriented X 3, normal motor function, normal sensory function, no focal deficits noted. [] Psychologic: Affect normal, judgement normal, mood normal. [] Current Patient Data: Labs: Laboratory Tests Test 08/19/20 16:30 08/19/20 18:30 White Blood Count 5.2 x10^3/uL (4.0-11.0) Red Blood Count 4.76 x10^6/uL (4.30-5.70) Hemoglobin 13.7 g/dL (13.0-17.5) Hematocrit 41.9 % (39.0-53.0) Mean Corpuscular Volume 88 fL (79-100) Mean Corpuscular Hemoglobin 29 pg (25-35) Mean Corpuscular Hemoglobin Concent 33 g/dL (31-37) Red Cell Distribution Width 14.0 % (11.5-14.5) Platelet Count 178 x10^3/uL (140-400) Neutrophils (%) (Auto) 62 % (31-73) Lymphocytes (%) (Auto) 20 % (24-48) L Monocytes (%) (Auto) 17 % (0-9) H Eosinophils (%) (Auto) 1 % (0-3) Basophils (%) (Auto) 1 % (0-3) Neutrophils # (Auto) 3.2 x10^3/uL (1.8-7.7) Lymphocytes # (Auto) 1.0 x10^3/uL (1.0-4.8) Monocytes # (Auto) 0.9 x10^3/uL (0.0-1.1) Eosinophils # (Auto) 0.0 x10^3/uL (0.0-0.7) Basophils # (Auto) 0.0 x10^3/uL (0.0-0.2) D-Dimer (Tegan) 0.30 ug/mlFEU (0.00-0.50) Sodium Level 138 mmol/L (136-145) Potassium Level 3.2 mmol/L (3.5-5.1) L Chloride Level 103 mmol/L (98-107) Carbon Dioxide Level 26 mmol/L (21-32) Anion Gap 9 (6-14) Blood Urea Nitrogen 14 mg/dL (8-26) Creatinine 1.5 mg/dL (0.7-1.3) H Estimated GFR (Cockcroft-Gault) 58.4 BUN/Creatinine Ratio 9 (6-20) Glucose Level 103 mg/dL (70-99) H Calcium Level 8.5 mg/dL (8.5-10.1) Magnesium Level 2.4 mg/dL (1.8-2.4) Total Bilirubin 0.4 mg/dL (0.2-1.0) Aspartate Amino Transferase (AST) 37 U/L (15-37) Alanine Aminotransferase (ALT) 39 U/L (16-63) Alkaline Phosphatase 80 U/L (46-116) Troponin I Quantitative < 0.017 ng/mL (0.000-0.055) GX-Hde-Q-Type Natriuretic Peptide 114 pg/mL (0-124) Total Protein 7.1 g/dL (6.4-8.2) Albumin 3.4 g/dL (3.4-5.0) Albumin/Globulin Ratio 0.9 (1.0-1.7) L Urine Collection Type Unknown Urine Color Yellow Urine Clarity Clear Urine pH 6.0 (<5.0-8.0) Urine Specific [place] 1.020 (1.000-1.030) Urine Protein 100 mg/dL (NEG-TRACE) Urine Glucose (UA) Negative mg/dL (NEG) Urine Ketones (Stick) Negative mg/dL (NEG) Urine Blood Moderate (NEG) Urine Nitrite Positive (NEG) Urine Bilirubin Negative (NEG) Urine Urobilinogen Dipstick 1.0 mg/dL (0.2 mg/dL) Urine Leukocyte Esterase Small (NEG) Urine RBC 3-5 /HPF (0-2) Urine WBC 20-40 /HPF (0-4) Urine Squamous Epithelial Cells Few /LPF Urine Amorphous Sediment Present /HPF Urine Bacteria Many /HPF (0-FEW) Urine Mucus Slight /LPF Laboratory Tests 08/19/20 16:30 Laboratory Tests 08/19/20 16:30 Vital Signs: Vital Signs Date Time Temp Pulse Resp B/P (MAP) Pulse Ox O2 Delivery O2 Flow Rate FiO2 08/19/20 16:48 99.8 63 18 109/60 (76) 98 Room Air 99.8 EKG: EKG: Sinus rhythm, heart rate 62, left axis deviation, left hand cheerier fascicular block, no ST elevation depression, no ectopy [] Heart Score: Risk Factors: Risk Factors: DM, Current or recent (<one month) smoker, HTN, HLP, family history of CAD, obesity. Risk Scores: Score 0 - 3: 2.5% MACE over next 6 weeks - Discharge Home Score 4 - 6: 20.3% MACE over next 6 weeks - Admit for Clinical Observation Score 7 - 10: 72.7% MACE over next 6 weeks - Early Invasive Strategies Radiology/Procedures: Radiology/Procedures: []IMAGING REPORT Signed PATIENT: TRACEY GOLDSTEIN ACCOUNT: [id number] : 1965 LOCATION: ER AGE: 55 SEX: M EXAM STATUS: REG ER ORD. PHYSICIAN: NATE NEGRON MD REASON: dyspnea PROCEDURE: CHEST AP ONLY EXAM: CHEST ONE VIEW. HISTORY: Dyspnea. COMPARISON: 01/22/2019. 02/17/2018 FINDINGS: A frontal view of the chest is obtained. An opacity in the left base appears chronic and likely corresponds with an epicardial fat pad on prior CT. There are no clear confluent infiltrates. There is no pneumothorax or pleural effusion. The heart is not enlarged. IMPRESSION: 1. Correlate with other data to differentiate a normal variant epicardial fat pad from a left basilar infiltrate. Electronically signed by: Fan Odell MD (08/19/2020 6:21 PM) [facility] DICTATED and SIGNED BY: TITO ODELL MD DATE: 08/19/20 [id number] 0 Course & Med Decision Making: Course & Med Decision Making Pertinent Labs and Imaging studies reviewed. (See chart for details) I received signout from Dr. Negron. Unable to obtain history from patient due to cva with aphasia (speaks 1-2 words). Patient lives at home with who reports he is currently at his baseline mental status. Was concerned for shortness of breath and coughing for the past week, requesting covid test. Supposedly tested negative for Covid 1 week ago at [facility]. Has no fever or leukocytosis. Mild hypokalemia of 3.2. Creatinine slightly elevated. Chest x- ray with possible left basilar infiltrate versus fat pad. Urinalysis showed UTI with hematuria -likely cysitis. Will DC home with antibiotics to cover for both complicated UTI and pneumonia. Strict ED return precautions were given for neurologic deficits, chest pain, dyspnea, increased work of breathing. Encouraged urgent outpatient follow-up with PMD and nephrology for amanuel. Life- threatening processes were considered but are low suspicion at this time, given history and physical exam. Pt was educated on all prescription medications and adverse effects. All patient's questions were answered and pt was stable at time of discharge. Life/limb-threatening differential includes but is not limited to, ACS, dysrhythmia, pneumothorax or hemothorax, pulmonary embolus, pneumonia, bronchoconstriction, pulmonary edema, angioedema, epiglottitis, tracheitis, Wicho's angina, RPA/STRINGED INSTRUMENT ASSEMBLER, anaphylaxis, angioedema, cardiac tamponade or murmurs, pericarditis, myocarditis, poisoning or toxicity, sepsis or autoimmune/neurologic disease. I spoken with the patient and her caregivers. I explained the patient's condition, diagnoses and treatment plan based on the information available to me at this time. I have answered the patient and her caregiver's questions and addressed any concerns. The patient and her caregivers have a good understanding of patient's diagnosis, condition and treatment plan as can be expected at this point. Vital signs have been stable. Patient's condition is stable and appropriate for discharge from the emergency department. Patient will pursue further outpatient evaluation with primary care physician or other designated or consulting physician as outlined in the discharge instructions. The patient and/or caregivers are agreeable to this plan of care and follow-up instructions have been explained in detail. The patient and/or caregivers have received these instructions in written form and have expressed an understanding of the discharge instructions. The patient and/or caregivers are aware that any significant change of condition or worsening of symptoms should prompt immediate return to this or the closest emergency department or call to 911. Ritika Disclaimer: Ritika Disclaimer: This electronic medical record was generated, in whole or in part, using a voice recognition dictation system. Departure Departure Impression: Primary Impression: Dyspnea Additional Impressions: Person under investigation for COVID-19 UTI (urinary tract infection) AAMNUEL (acute kidney injury) Disposition: 01 DC HOME SELF CARE/HOMELESS Condition: STABLE Referrals: UNKNOWN PCP NAME (PCP) FOLLOW UP WITH FAMILY MEDICINE: Family Medicine Address: [address] [facility] [address] [place] [address] Patient Instructions: Acute Kidney Injury, Urinary Tract Infection Additional Instructions: FOLLOW UP WITH NEPHROLOGY: [facility] Address: [address] [place] [address] Return to ED immediately if your oxygen level drops below 90% (purchase a pulse oximetry at a medical supply store), difficulties breathing including rapid breathing or increased work of breathing (skin sucking under ribs), chest pain or stroke-like symptoms. You have been tested for or diagnosed with COVID-19. It is an infection caused by a new type of coronavirus. COVID-19 will cause cold-like or mild flu symptoms in most. It can cause more severe symptoms like problems breathing in some. There is no treatment for COVID-19. The body will clear the infection over time. Self-care will help to ease discomfort. Steps to Take: Self-Care Rest as needed. Healthy habits may help you feel better. Steps include: Choose healthy foods including fruits and vegetables. Drink water throughout the day. Get plenty of sleep each night. If you smoke, try to quit. It may ease breathing. Avoid alcohol. Keep Others Healthy The virus can spread to others. Droplets are released every time you sneeze or cough. The droplets can get into the mouth, nose, or eyes of people near you and lead to infection. To lower the chances of spreading COVID-19 to others: Stay at home until your doctor has said it is safe to leave. If you tested positive this will mean staying isolated until both of the following are true: At least 7 days have passed since the start of illness. You are free of fever for at least 72 hours without the use of medicine. During this time: - Avoid public areas, events, or transportation. Do not return to work or school until your doctor has said it is safe to do so. - Call ahead if you need to go to a medical center. Let them know you may have COVID-19. It will help them guide you where to go. They may also ask you to wear a facemask when you come to the office. - If you call for emergency medical services, let them know you may have COVID- 19. While at home: - Try to avoid close contact with others. Stay about 6 feet away. - If possible, spend most of your time in a separate room from others. - Use a face mask if you will be in close contact with others such as sharing a room or vehicle. - Have someone wipe down common surfaces in the home. Use household bracelet maker novelty every day on areas like doorknobs, counters, or sinks. - Cough or sneeze into a tissue. Throw the tissue away right after use. If a tissue is not available, cough or sneeze into your elbow. - Wash your hands often. Wash them after sneezing or coughing. Use soap and water and wash for at least 20 seconds. Alcohol based hand bell cleaner can be used if soap and water is not available. - Do not prepare food for others. Avoid sharing personal items like forks, spoons, or toothbrushes. - Avoid close contact with pets while you are sick. There is no evidence of the virus passing to pets. This is a safety step until more is known about this virus. Isolation can be frustrating. Social interaction can help. Keep in touch with friends and family through phone and tech options. You can still interact with others in your home, just keep a safe distance of about 6 feet. Follow-up: Your doctors office will check in with you to see if there are any changes in your health. You may be asked to keep track of symptoms to share with them. They will also let you know when you are clear to be in public again. Problems to Look Out For: Contact your doctor if your recovery is not going as you expect. Get emergency care if you have problems such as: - Trouble breathing - Nonstop chest pain or pressure - Changes in awareness, confusion, or problems waking - Lips or face have bluish color - Worsening of symptoms If you think you have an emergency, call for emergency medical services right away. As [facility] from [facility] Script[facility] Doxycycline Hyclate (DOXYCYCLINE HYCLATE) 100 Mg Capsule 1 CAP PO BID for 14 Days, #28 CAP Prov: PRICILA MCINTYRE DO 08/19/20 Problem Qualifiers NATE NEGRON MD Aug 19, 2020 17:35 PRICILA MCINTYRE DO Aug 19, 2020 18:26
[2020-08-19 17:49] LABS: BASO % 1 % (0-3); EOS % 1 % (0-3); HEMATOCRIT 41.9 % (39.0-53.0); HEMOGLOBIN 13.7 g/dL (13.0-17.5); LYMPH % 20 % (24-48); MEAN CORPUSCULAR HEMOGLOBIN 29 pg (25-35); MEAN CORPUSCULAR HGB CONC 33 g/dL (31-37); MEAN CORPUSCULAR VOLUME 88 fL (79-100); MONO # 0.9 x10^3/uL (0.0-1.1); MONO % 17 % (0-9); NEUT # 3.2 x10^3/uL (1.8-7.7); NEUT % 62 % (31-73); PLATELET COUNT 178 x10^3/uL (140-400); RED BLOOD COUNT 4.76 x10^6/uL (4.30-5.70); WHITE BLOOD COUNT 5.2 x10^3/uL (4.0-11.0)
[2020-08-19 17:58] LABS: CALCIUM 8.5 mg/dL (8.5-10.1); CREATININE 1.5 mg/dL (0.7-1.3); GFR 58.4; POTASSIUM 3.2 mmol/L (3.5-5.1)
[2020-08-19 18:04] LABS: ALBUMIN 3.4 g/dL (3.4-5.0); ALBUMIN/GLOBULIN RATIO 0.9 (1.0-1.7); MAGNESIUM 2.4 mg/dL (1.8-2.4); TOTAL BILIRUBIN 0.4 mg/dL (0.2-1.0); TOTAL PROTEIN 7.1 g/dL (6.4-8.2)
--- NOTE | 2020-08-19 18:23 | RAD ---
EXAM: CHEST ONE VIEW. HISTORY: Dyspnea. COMPARISON: 01/22/2019. 02/17/2018 FINDINGS: A frontal view of the chest is obtained. An opacity in the left base appears chronic and likely corresponds with an epicardial fat pad on prior CT. There are no clear confluent infiltrates. There is no pneumothorax or pleural effusion. The heart is not enlarged. IMPRESSION: 1. Correlate with other data to differentiate a normal variant epicardial fat pad from a left basilar infiltrate. Electronically signed by: Fan Odell MD (08/19/2020 6:21 PM) [facility]
[2020-08-19 18:45] LABS: BILIRUBIN,URINE NEGATIVE (NEG); CLARITY,URINE CLEAR; COLOR,URINE YELLOW; NITRITE,URINE POSITIVE (NEG); PROTEIN,URINE 100 mg/dL (NEG-TRACE)
[2020-08-19 19:02] LABS: BACTERIA,URINE MANY /HPF (0-FEW); WBC,URINE 20-40 /HPF (0-4)
[2020-08-19 19:03] LABS: AMORPHOUS SEDIMENT,UR PRESENT /HPF
[2020-08-19] MEDS ORDERED: cefTRIAXone IV Push 1 GM VIAL. IVP ONE (20:00)
[2020-08-19] MEDS ORDERED: DOXY100C2 PO (20:20)
[2020-08-19 20:45] VITALS: BP 121/68
== END 2020-08-19 21:37 | disposition home or self-care (01) ==
LOC: ER 16:07
DX: N39.0 Urinary tract infection, site not specified (principal); N17.9 Acute kidney failure, unspecified; R06.02 Shortness of breath; E78.00 Pure hypercholesterolemia, unspecified; I11.0 Hypertensive heart disease with heart failure; I50.9 Heart failure, unspecified; M10.9 Gout, unspecified; Z86.73 Personal history of transient ischemic attack (TIA), and cerebral infarction without residual deficits; Z87.891 Personal history of nicotine dependence; Z91.041 Radiographic dye allergy status
CPT/HCPCS: 36415; 71045; 80053; 81001; 83735; 83880; 84484; 85025; 85379; 87086; 93005; 96374; 99285; J0696